=== PATIENT | male | born 1965 | race Caucasian/White ===

== ENCOUNTER 2017-05-24 09:36 | Inpatient (IN) | payer OTHER ==
[2017-05-24] VITALS (8 sets, daily range): BP systolic 72–137; BP diastolic 60–84
[~2017-05-24] VITALS: Ht 172.7 cm; Wt 86.7 kg
--- NOTE | 2017-05-24 14:52 | EKG ---
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
[2017-05-24] MEDS ORDERED: DOCUSATE SODIUM 100 MG CAPSULE. PO PRN (15:15)
[2017-05-24] MEDS ORDERED: hydrALAZINE 20 MG/ML VIAL. IVP PRN (15:15)
[2017-05-24] MEDS ORDERED: ONDANSETRON PF 4 MG/2 ML VIAL. IV PRN (15:15)
[2017-05-24] MEDS ORDERED: DEXTROSE 5% IV PRN (15:15)
[2017-05-24] MEDS ORDERED: IV NORMAL SALINE 1000ML BAG 1,000 ML IV ONE (15:15)
[2017-05-24] MEDS ORDERED: MORPHINE SULFATE 2 MG/ML DISP.SYRIN. IV PRN (15:15)
[2017-05-24] MEDS ORDERED: ACETAMINOPHEN 325 MG TABLET. PO PRN (15:15)
[2017-05-24] MEDS ORDERED: DOPAMINE IV PRN (15:15)
--- NOTE | 2017-05-24 15:18 | PDOC1 ---
History and Physical Date of Admission Date of Admission 05/24/17 Identification/Chief Complaint Chief Complaint chest pain, lightheaded Problems: Source Source: Chart review, Patient History of Present Illness History of Present Illness 52yo M, HTN, was transferred from [facility] FOR bradycardia. Pt said he woke up today with shaky, then N/V, lightheaded. He also felt some substernal chest pain, pressure like, 4/10, no radiation, no diaphoresis or sob. He went to [facility] ,was found HR 30-50s, BP 150s. HE WAS started with dopamine drip, nitro given. NOw He has some headache, HR sinus at 50s, with dopamine at 5m, BP 110s. he said he has similar chest pain 3month ago, saw dr. Vega, did ehco and stress test and was neg. i cannot find any records. He takes benicar with other meds,no details known yet. Past Medical History Cardiovascular: HTN Past Surgical History Past Surgical History: Cholecystectomy Family History Family History: Coronary Artery Disease, Heart Disease Social History Smoke: No ALCOHOL: social Drugs: None Current Medications Current Medications Current Medications Medications (Trade) Dose Ordered Sig/Hayder Start Time Stop Time Status Last Admin Dose Admin Dopamine HCl/ Dextrose 250 ml @ 0 mls/hr CONT PRN 05/24/17 14:45 Allergies Allergies Allergies Coded Allergies Type Severity Reaction Last Updated Verified amoxicillin Allergy Intermediate RASH / HIVES 03/25/16 Yes codeine Allergy Intermediate ITCHY, BROKE OUT WITH RASH 03/25/16 Yes ROS Review of System CONSTITUTIONAL: No fever or chills EYES: No recent changes SKIN: No rash or itching CARDIOVASCULAR: No chest pain, syncope, palpitations, or edema RESPIRATORY: No SOB or cough GASTROINTESTINAL: No nausea, vomiting or abdominal pain NEUROLOGICAL: No headaches or weakness ENDOCRINE: No cold or heat intolerance GENITOURINARY: No urgency or frequency of urination MUSCULOSKELETAL: No back pain or joint pain LYMPHATICS: No enlarged lymph nodes PSYCHIATRIC: No anxiety or depression Physical Exam Physical Exam GEN.: No apparent distress. Alert and oriented. HEENT: Head is normocephalic, atraumatic NECK: Supple. LUNGS: Clear to auscultation.middle chest wall some tenderness HEART: RRR, S1, S2 present. Peripheral pulses intact ABDOMEN: Soft, nontender. Positive bowel sounds. EXTREMITIES: Without any cyanosis. NEUROLOGIC: Normal speech, normal tone PSYCHIATRIC: Normal affect, normal mood. SKIN: No ulcerations Vitals Vitals Vital Signs Date Time Temp Pulse Resp B/P (MAP) Pulse Ox O2 Delivery O2 Flow Rate FiO2 05/24/17 13:14 Room Air 05/24/17 11:45 97.5 67 20 121/74 (90) 96 97.5 VTE Prophylaxis Ordered VTE Prophylaxis Devices: Yes VTE Pharmacological Prophylaxi: Yes Assessment/Plan Assessment/Plan symptomatic sinus bradycardia chest pain, need to rule out unstable angina HTN plan: card consult check tsh, lipid panel cycle CE. echo done 3months ago as per pt, hold till seen by card dopamine drip to keep HR >60, BP >120 hold home HTN meds dvt ppx if not better, may need PPM. ADMIT >2nights DERRICK JOHN MD May 24, 2017 15:18
--- NOTE | 2017-05-24 15:24 | PDOC2 ---
CARDIAC CONSULT DATE OF CONSULT Date of Consult DATE: 05/24/17 TIME: 15:12 REASON FOR CONSULT Reason for Consult: Bradycardia REFERRING PHYSICIAN Referring Physician: Dr. Rose SOURCE Source: Chart review, Patient HISTORY OF PRESENT ILLNESS HISTORY OF PRESENT ILLNESS This is a 52 yo male who initially presented to [facility] ED with complaints of feeling shaky, dizzy, and lightheaded upon awakening this morning. Got in the shower, vomited twice. Also complains of intermittent left-sided chest discomfort. Describes as heaviness. Radiated to left shoulder. Associated with left hand tingling. No associated SOA, palpitations, or diaphoresis. Seems to be worsened by pressing on the left chest. Bradycardic upon arrival to ED HR continued in the upper mid-40's. Patient complained of dizziness when HR dipped to upper 30's. Started on Dopamine at 5 mcg/kg/min and transferred to [facility] for further workup. Labs noted at [facility]. No significant abnormalities. Urine tox screen negative. Patient is presently maintaining SB with a HR near 50 on Dopamine at 5mcg. PAST MEDICAL HISTORY Cardiovascular: HTN Pulmonary: No pertinent hx GI: No pertinent hx Heme/Onc: No pertinent hx Hepatobiliary: No pertinent hx Psych: No pertinent hx Rheumatologic: No pertinent hx Infectious disease: No pertinent hx ENT: No pertinent hx Renal/: Other (kidney stones ) Endocrine: No pertinent hx Dermatology: No pertinent hx PAST SURGICAL HISTORY Past Surgical History: Cholecystectomy, Other (right wrist and elbow sx) FAMILY HISTORY Family History: Cancer (lung- mother ), Coronary Artery Disease SOCIAL HISTORY Smoke: Quit (20 years ago) ALCOHOL: occassional Drugs: None ALLERGIES ALLERGIES: Coded Allergies: amoxicillin (Verified Allergy, Intermediate, RASH / HIVES, 03/25/16) codeine (Verified Allergy, Intermediate, ITCHY, BROKE OUT WITH RASH, ) ROS Review of System 14 point ROS conducted with pertinent positives noted above in HPI. PHYSICAL EXAM General: Alert, Oriented X3, Cooperative, No acute distress HEENT: Atraumatic, Mucous membr. moist/pink Lungs: Clear to auscultation, Normal air movement Heart: Normal S1, Normal S2, No murmurs, Other (tele: SB rate near 50. ) Abdomen: Soft, No tenderness Extremities: No edema, Normal pulses Skin: No breakdown, No significant lesion Neuro: Normal speech, Sensation intact Psych/Mental Status: Mental status NL, Mood NL MUSCULOSKELETAL: Full range of motion without pain VITALS VITALS Vital Signs Date Time Temp Pulse Resp B/P (MAP) Pulse Ox O2 Delivery O2 Flow Rate FiO2 05/24/17 15:00 97.9 48 18 110/74 (86) 99 Room Air 97.9 ECHOCARDIOGRAM ECHOCARDIOGRAM <Conclusion> The left ventricle is normal size. Left ventricle systolic function is normal. The Ejection Fraction is 55-60%. There is no significant aortic valvular stenosis. Doppler and Color Flow revealed no significant aortic regurgitation. Doppler and Color Flow revealed mild mitral regurgitation. Doppler and Color Flow revealed trace to mild tricuspid regurgitation. The PA pressure was estimated at 23 mmHg. DATE: 02/18/17 1133 STRESS TEST STRESS TEST Conclusion 1. No evidence of stress induced EKG changes 2. Normal myocardial perfusion at stress. 3. Normal EF at > 70% 4. Low risk study DATE: 02/18/17 1507 ASSESSMENT/PLAN ASSESSMENT/PLAN 1. Symptomatic bradycardia; HR presently near 50 on Dopamine 2. Chest pain, atypical; initial trop negative at [facility]. EKG without acute changes. Recent MPI without evidence of ischemia and normal echo as noted above 3. Hypertension; controlled 4. Dyslipidemia; LDL =99 (02/22) 5. Probable MARIALUISA; unable to afford deductible for outpatient sleep study Recommendations Trend troponin Continue Dopamine gtt at 5mcg/kg/min for bradycardia. If patient becomes unstable, transfer patient to ICU and titrate Dopamine to keep HR >50. Monitor telemetry overnight. Keep NPO p MN Consider for pacemaker implantation for SSS. D/w primary public affairs specialist Problems: MAK DASH APRN May 24, 2017 15:24
[2017-05-24] MEDS: traMADol 50 MG TABLET PO PRN (19:36)
[2017-05-24] MEDS: ENOXAPARIN 40 MG/0.4 ML SYRINGE. SQ SCH (21:16)
[2017-05-25] VITALS (17 sets, daily range): BP systolic 98–125; BP diastolic 62–81
--- NOTE | 2017-05-25 01:13 | ACF ---
Admission Forms Criteria GENERAL ADMISSION CRITERIA (Place 'X' for any and all applicable criteria): Admission is indicated for ANY ONE of the following: [ ]I. Hemodynamic instability as indicated by ANY ONE of the following(1)(2) (3)(4)(5): [ ]a) Vital sign abnormality not readily corrected by appropriate treatment within 12 to 24 hours indicated by ANY ONE of the following: [ ]i) Hypotension [ ]ii) Symptomatic Tachycardia unresponsive to treatment (eg , analgesia, fluids, sedation as indicated) [ ]iii) Orthostatic vital sign changes unresponsive to treatment (eg, fluids) [ ]b) Vital sign abnormality that is severe indicated by ANY ONE of the following: [ ]i) Inadequate perfusion indicated by ANY ONE of the following: [ ]1) Lactic acidosis (greater than 2 mmol/L) [ ]2) New abnormal capillary refill (greater than 3 seconds) [ ]3) Other metabolic acidosis (arterial pH less than 7.35) not otherwise explained [ ]4) Reduced urine output [ ]5) Altered mental status [ ]6) Myocardial Ischemia [ ]v) Mean arterial pressure[A] less than 60 mm Hg [ ]vi) Mean arterial pressure[A] less than 70 mm Hg after 30 minutes of appropriate treatment (eg, fluid resuscitation) [ ]vii) IV inotropic or vasopressor medication required to maintain adequate blood pressure or perfusion [ ]viii) Sustained heart rate greater than 120 beats per minute in adult or child 6 years or older[B]] [ ]II. Hypertension requiring inpatient treatment as indicated by ANY ONE of the following(6)(7)(8): [ ]a) SBP greater than 220 mm Hg or DBP greater than 120 mm Hg despite treatment [ ]b) SBP greater than 140 mm Hg or DBP greater than 100 mm Hg with evidence of acute end organ damage as indicated by ANY ONE of the following: [ ]i) Encephalopathy [ ]ii) Acute renal failure as indicated by new onset of ANY ONE of the following(9)(10)(11)(12)(13): [ ]1) A 3-fold rise in serum creatinine from baseline [ ]2) Serum creatinine greater than 4 mg/dL ( 354 micromoles/L) with acute rise greater than 0.5 mg/dL (44.2 micromoles/L) [ ]3) Reduction of more than 75% in estimated glomerular filtration rate from baseline [ ]4) Estimated glomerular filtration rate less than 35 mL/min/1.73m2 (0.59 mL/sec/1.73m2) in child up to 18 years of age [ ]5) Cessation of urine output indicated by ALL of the following: [ ]A. Adequate volume status [ ]B. Inadequate urine output as indicated by ANY ONE of the following: [ ]a. Urine output less than 0.3 mL/kg/hr for 24 hours [ ]b. Anuria (urine output less than 0.1 mL/kg/hr) for 12 hours [ ]iii) Aortic dissection [ ]iv) Myocardial ischemia [ ]v) Left ventricular heart failure [ ]vi) Retinal hemorrhage [ ]vii) Other significant finding [ ]c) Hypertension in child requiring inpatient treatment as indicated by ALL of the following(14)(15)(16): [ ]i) Outpatient treatment not effective, not available, or not appropriate [ ]ii) SBP or DBP greater than 95th percentile for age [ ]iii) Evidence of acute end organ damage as indicated by ANY ONE of the following: [ ]1) Altered mental status [ ]2) Acute renal failure as indicated by new onset of ANY ONE of the following(9)(10)(11)(12)(13): [ ]A. A 3-fold rise in serum creatinine from baseline [ ]B. Serum creatinine greater than 4 mg/dL (354 micromoles/L) with acute rise greater than 0.5 mg/dL (44.2 micromoles/L) [ ]C. Reduction of more than 75% in estimated glomerular filtration rate from baseline [ ]D. Estimated glomerular filtration rate less than 35 mL/min/1.73m2 (0.59 mL/sec/1.73m2)in child up to 18 years of age [ ]E. Cessation of urine output indicated by ALL of the following: [ ]a. Adequate volume status [ ]b. Inadequate urine output as indicated by ANY ONE of the following: [ ]1) Urine output less than 0.3 mL/kg/hr for 24 hours [ ]2) Anuria (urine output less than 0.1 mL/kg/hr) for 12 hours [ ]3) Severe headache [ ]4) Visual disturbance [ ]5) Retinal hemorrhage [ ]6) Other significant finding [ ]III. Acute cardiac or peripheral ischemia as indicated by ANY ONE of the following: [ ]a) Acute coronary syndrome(17)(18) [ ]b) Acute peripheral ischemia (eg, pulseless, cool, mottled, or cyanotic extremity)(19) [ ]IV. Cardiac arrhythmias or findings of immediate concern indicated by ANY ONE of the following(20)(21): [ ]a) Heart rhythms that are inherently dangerous or unstable indicated by ANY ONE of the following(22)(23)(24): [ ]i) Resuscitated ventricular fibrillation or cardiac arrest [ ]ii) Ventricular escape rhythm [ ]iii) Sustained ventricular tachycardia (30 seconds or more of ventricular rhythm at greater than 100 beats per minute) [ ]iv) Nonsustained ventricular tachycardia and ANY ONE of the following: [ ]1) Suspected cardiac ischemia as cause or consequence of ventricular tachycardia [ ]2) In setting of acute myocarditis [ ]b) Unstable cardiac conduction defects indicated by ANY ONE of the following(24)(25)(26): [ ]i) Type II second-degree atrioventricular block [ ]ii) Third-degree atrioventricular block [ ]iii) New-onset left bundle branch block with suspected myocardial ischemia [ ]c) Any heart rhythm and ANY ONE of the following(22)(23)(27)(28)( 29): [ ] i) Continuous long-term ECG monitoring needed (eg, initiation of drug requiring monitoring for more than 24 hours) [ ] ii) Patient has automatic implanted cardioverter defibrillator that is repeatedly firing, malfunctioning, or in need of immediate adjustment of settings beyond the scope of ambulatory or observation care. [ ]d) Heart rhythms of concern due to ANY ONE of the following: [ ]i) Hypotension [ ]ii) Respiratory distress [ ]iii) Association with other significant symptoms (eg, bradycardia with syncope or ongoing dizziness, supraventricular tachycardia with chest pain) (27)(28) (30) [ ] V. Severe heart failure as indicated by ANY ONE of the following ( 31)(32): [ ]a) Respiratory distress [ ]b) Hypotension [ ]c) Anasarca (refractory to outpatient therapy) [ ]d) Cardiac arrhythmias of immediate concern [ ]e) Myocardial ischemia [ ]. Respiratory abnormalities, including ANY ONE of the following(33)(34) (35)(36): [ ]a) Respiratory rate greater than 30 breaths per minute unresponsive to treatment [A] [ ]b) New saturation of arterial oxygen less than 90% [ ]c) New partial pressure of carbon dioxide greater than 44 mm Hg ( 5.9 kPa) [ ]d) Supplemental oxygen or respiratory treatments needed that are new or not performable at other levels of care [ ]e) New-onset cyanosis [ ]f) Inability to protect airway [ ]g) Chronic lung disease with severe deterioration (not responsive to emergency and observation care treatment as appropriate) as indicated by ANY ONE of the following(34)(36 ): [ ]i) SaO2 5% below baseline in patient with chronic hypoxemia [ ]ii) New requirement for supplemental oxygen to keep SaO2 at baseline or acceptable level [ ]iii) Required supplemental oxygen performable only in acute inpatient setting [ ]iv) Severe airflow or ventilation abnormalities [ ]v) Previously mobile patient unable to walk between rooms [ ]vi Inability to eat or sleep due to dyspnea [ ]vii) Rapid rate of exacerbation onset [ ]viii) Altered mental status ]VII. Severe airflow or ventilation abnormalities (not responsive to emergency and observation care treatment as appropriate) as indicated by ANY ONE of the following(33)(34)(35)(37): [ ]a) PCO2 greater than 42 mm Hg (5.6 kPa) and pH less than 7.35 (new ) [ ]b) Documented PCO2 increased more than 5 mm Hg (0.7 kPa) from disease baseline [ ]c) Airflow measurements [B] less than 60% of previous best or predicted (eg, peak expiratory flow rate less than 300 L/minute) despite intensive emergent treatment [C] [ ]d) Required respiratory treatments that are performable only in acute inpatient setting [ ]VIII. Impending or actual respiratory arrest ( Also use Respiratory Failure GRG for severe respiratory disease and long-term mechanical ventilation patients) [ ]IX. Neurologic abnormalities, including ANY ONE of the following: [ ]a) New findings that suggest ANY ONE of the following: [ ]i) SPRING ENCASER infection(38) [ ]ii) Cerebral bleeding, ischemia, or vasospasm(39)(40) [ ]iii) Increased intracranial pressure, hydrocephalus, or cerebral edema(41)(42)(43) [ ]iv) Spinal cord injury(44) [ ]b) Uncontrolled seizures(45) [ ]c) New-onset coma (eg, Gee coma scale score less than 9) or unexplained abnormal mental status (eg, Gee coma scale score less than 14) [D](41)(46)(47) [ ]X. New-onset severe neurologic findings requiring inpatient care; examples include(42)(48)(49): [ ]a) Papilledema [ ]b) Cerebral edema [ ]c) Mass effect on CT scan [ ]XI. Suspected acute intra-abdominal process with peritoneal signs, abdominal mass, or similar findings (50)(51)(52) [ ]XII. Severe physiologic disorder remaining after emergency or observation level care (as appropriate) as indicated by ANY ONE of the following (53): [ ]a) Significant dehydration [ ]b) Diabetic ketoacidosis [ ]c) Hyperglycemic hyperosmolar state (eg, osmolality greater than 320 mOsm/kg (mmol/kg) [ ]d) Hypoglycemia [ ]e) Other (new) acid-base disorder with pH less than 7.35 or greater than 7.5(54) [ ]f) Thyroid storm (55) [ ]g) Myxedema coma (55) [ ]XIII. Abdominal abnormalities with ANY ONE of the following(56)(57): [ ]a) Absent bowel sounds with complete ileus [ ]b) Signs of intestinal obstruction or peritonitis [E] [ ]c) Nausea and vomiting that cannot be controlled with outpatient or observation care [ ]XIV. Acute renal failure as indicated by new onset of ANY ONE of the following(9)(10)(11)(12)(13): [ ]a) A 3-fold rise in serum creatinine from baseline [ ]b) Serum creatinine greater than 4 mg/dL (354 micromoles/L) with acute rise greater than 0.5 mg/dL (44.2 micromoles/L) [ ]c) Reduction of more than 75% in estimated glomerular filtration rate from baseline [ ]d) Estimated glomerular filtration rate less than 35 mL/min/ 1.73m2 (0.59 mL/sec/1.73m2) in child up to 18 years of age [ ]e) Cessation of urine output indicated by ALL of the following: [ ]i) Adequate volume status [ ]ii) Inadequate urine output as indicated by ANY ONE of the following: [ ]1) Urine output less than 0.3 mL/kg/hr for 24 hours [ ]2) Anuria (urine output less than 0.1 mL/kg/hr) for 12 hours [ ]XV. Significant uremic complications as indicated by ANY ONE of the following(58)(59)(60): [ ]a) Outpatient therapy is ineffective or not feasible for ANY ONE of the following: [ ]i) Severe heart failure [ ]ii) Severehypertension [ ]iii) Pleural effusion [ ]iv) Pericarditis or pericardial effusion [ ]b) Cardiac arrhythmias of immediate concern [ ]c) Intractable nausea or vomiting [ ]d) Recurrent seizures [ ]e) Encephalopathy [ ]f) Bleeding abnormalities (eg, platelet dysfunction) with active (eg, gastrointestinal) bleeding [ ]g) Dialysis indicated before long-term access or ambulatory arrangements can be made [ ]h) Significant metabolic or electrolyte abnormalities (eg, severe acidosis or hyperkalemia) [ ]XVI. High fever or other high-risk infection situation as indicated by ANY ONE of the following(61)(62)(63)(64): [ ]a) Outpatient and observation care antimicrobial treatment unavailable, not effective, or not appropriate [ ]b) Documented bacteremia [ ]c) Temperature greater than 40.5 degrees C (104.9 degrees F) ( oral) [ ]d) Temperature greater than 39.5 degrees C (103.1 degrees F) ( oral) or less than 36 degrees C (96.8 degrees F) (rectal) that does not respond to e treatment and observation care [ ] XVII. Temperature less than 95 degrees F (35 degrees C)(rectal)(65) [ ] XVIII. Severe nutritional abnormalities as indicated by ALL of the following (66)(67): [ ]a) Inability to tolerate or establish sufficient oral or other enteral nutrition in outpatient setting [ ]b) Parenteral nutrition regimen need that must be implemented on inpatient basis [ ] XIX. Severe electrolyte abnormalities indicated by ALL of the following(68) (69)(70): [ ]a) Electrolytes and associated findings are not as expected for patient baseline or acceptable treatment effects. [ ]b) Severe abnormalities indicated by ANY ONE of the following: [ ]i) Sodium less than 130 mEq/L (mmol/L) (new) [ ]ii)Sodium less than 135 mEq/L (mmol/L) with ANY ONE of the following: [ ]1) Uncorrectable (to near normal or chronic baseline) after trial of outpatient and emergency treatment [ ]2) Altered mental status [ ]3) Seizures [ ]4) Severe medical etiology requiring inpatient management (eg, heart failure, hypovolemia) [ ]iii) Sodium greater than 155 mEq/L (mmol/L) [ ]iv) Sodium greater than 150 mEq/L (mmol/L) with ANY ONE of the following: [ ]1) Uncorrectable (to near normal or chronic baseline) with outpatient and emergency treatment [ ]2) Altered mental status [ ]3) Seizures [ ]4) Severe medical etiology (eg, hypovolemia, diabetes insipidus) [ ]v) Potassium less than 2.5 mEq/L (mmol/L) despite outpatient and emergency treatment [ ]vi) Potassium less than 3 mEq/L (mmol/L) with ANY ONE of the following: [ ]1) Weakness [ ]2) Cardiac abnormality (eg, arrhythmia, conduction disturbance) [ ]3) Cardiac ischemia [ ]4) Ileus [ ]5) Ongoing medical cause requiring inpatient management (eg, acute renal wasting or SIADH) [ ]6) Other severe symptoms [ ]vii) Potassium greater than 6.5 mEq/L (mmol/L) [ ]viii) Potassium greater than 5 mEq/L (mmol/L) with ANY ONE of the following: [ ]1) Uncorrectable (to near normal or chronic baseline) with outpatient and emergency treatment [ ]2) Severe ECG findings [F] [ ]3) Acute worsening of renal failure (creatinine greater than 2.5 mg/dL (221 micromoles/L) or significant elevation for age and size) [ ]4) Severe weakness [ ]5) Severe medical etiology (eg, hemolysis, infection, drug overdose) [ ]ix) Calcium less than 7 mg/dL (1.75 mmol/L) despite outpatient and emergency treatment (72) [ ]x) Calcium less than 8 mg/dL (2 mmol/L) with significant symptoms or findings; examples include(72): [ ]1) Altered mental status [ ]2) Muscle spasms [ ]3) Seizures [ ]4) Breathing difficulty [ ]5) Cardiac abnormality (eg, arrhythmia or conduction disturbance) [ ]xi) Calcium greater than 14 mg/dL (3.5 mmol/L)(72) [ ]xii) Calcium greater than 12 mg/dL (3 mmol/L) with ANY ONE of the following(72): [ ]1) Uncorrectable (to near normal or chronic baseline) with outpatient and emergency treatment [ ]2) Significant dehydration or hypovolemia as indicated by ALL of the following(70)(73)(74): [ ]A. Not resolved with initial treatments [ ]B. Clinically significant dehydration as indicated by ANY ONE of the following: [ ]a. Vomiting refractory to outpatient treatment (ie, precluding oral rehydration) [ ]b. Inability to drink [ ]c. Hypernatremia or other electrolyte abnormality unable to be corrected with outpatient and emergency treatment [ ]d. Failure to remain hydrated with outpatient therapy [ ]e. Reduced urine output [ ]f. Hypotension [ ]g. Serious cause for dehydration requiring acute hospitalization (eg, bowel obstruction, increased intracranial pressure, infectious cause) [ ]h. Child with ANY ONE of the following(75): [ ]1) Severe abdominal tenderness [ ]2) Adequate care not available at home [ ]3) Severe dehydration ( greater than 9% loss of body weight) [ ]4) Significant symptoms or findings; examples include: [ ]A. Altered mental status [ ]B. Cardiac abnormality (eg, arrhythmia, conduction disturbance) [ ]C. Malignant etiology requiring inpatient treatment [ ]xiii) Phosphorus less than 1 mg/dL (0.32 mmol/L) [ ]xiv) Phosphorus less than 1.5 mg/dL (0.48 mmol/L) with ANY ONE of the following: [ ]1) Patient unresponsive to outpatient and emergency treatment [ ]2) Significant symptoms or findings; examples include: [ ]A. Weakness [ ]B. Altered mental status [ ]C. Breathing difficulty [ ]D. Seizures [ ]E. Rhabdomyolysis [ ]xv) Phosphorus greater than 10 mg/dL (3.2 mmol/L) [ ]xvi) Phosphorus greater than 4.5 mg/dL (1.45 mmol/L) (new) with ANY ONE of the following: [ ]1) Severe medical etiology (eg, crush injury, acute renal failure) [ ]2) Associated hypocalcemia with significant findings; examples include: [ ]A. Neurologic symptoms [ ]B. Altered mental status [ ]C. Muscle spasms [ ]D. Seizures [ ]E. Breathing difficulty [ ]F. Cardiac abnormality (eg, arrhythmia, conduction disturbance) [ ]xvii) Magnesium less than 1 mg/dL (0.41 mmol/L) [ ]xviii) Magnesium less than 1.5 mg/dL (0.62 mmol/L) with ANY ONE of the following: [ ]1) Patient unresponsive to outpatient and emergency treatment [ ]2) Associated hypocalcemia with significant findings; examples include: [ ]A. Altered mental status [ ]B. Muscle spasms [ ]C. Seizures [ ]D. Breathing difficulty [ ]E. Cardiac abnormality (eg, arrhythmia , conduction disturbance) [ ]3) Associated hypokalemia (potassium less than 3 mEq/L (mmol/L)) with risk of arrhythmia [ ]xix) Magnesium greater than 4 mEq/L (2 mmol/L) [ ]xx) Magnesium greater than 2.5 mEq/L (1.25 mmol/L) with significant symptoms or findings; examples include: [ ]1) Weakness [ ]2) Altered mental status [ ]3) Cardiac abnormality (eg, arrhythmia, conduction disturbance) [ ]4) Breathing difficulty [ ]5) Severe medical etiology (eg, renal failure, hypovolemia) [ ]xxi) Uric acid greater than 20 mg/dL (1190 micromoles/L)(76) [ ]xxii) Uric acid greater than 8 mg/dL (476 micromoles/L) with significant symptoms or findings of tumor lysis syndrome; examples include(76): [ ]1) Creatinine greater than 1.5 times upper limit of normal [ ]2) Cardiac abnormality (eg, arrhythmia, conduction disturbance) [ ]3) Seizure [ ]XX. Acute blood loss causing significant abnormality as indicated by ANY ONE of the following(77)(78): [ ]a) Hemoglobin less than 10 g/dL (100 g/L) (not baseline) [ ]b) Hematocrit less than 30% (0.30) (not baseline) [ ]c) Repeat hematocrit decreased more than 2% (0.02) [ ]d) Uncontrolled bleeding [ ]XXI. Severe anemia indicated by ANY ONE of the following(78)(79): [ ]a) Altered mental status [ ]b) Chest pain [ ]c) Exertional dyspnea [ ]d) Syncope [ ]e) Other findings suggesting inadequate perfusion [ ]f) Treatment with transfusion or volume replacement is ineffective at resolving ANY ONE of the following [G]: [ ]i) Tachycardia for age [ ]ii) Orthostatic vital sign changes as indicated by ANY ONE of the following(80): [ ]1) Fall in SBP of 20 mm Hg or more 1 to 3 minutes after patient sits or stands from recumbent position [ ]2) Fall in DBP of 10 mm Hg or more 1 to 3 minutes after patient sits or stands from recumbent position [ ]XXII. High-risk low platelet count as indicated by ANY ONE of the following( 81)(82): [ ]a) Severe or life-threatening bleeding (eg, intracranial, major gastrointestinal, or extensive mucosal bleeding), with any reduced platelet count [ ]b) Platelet count less than 20,000/mm3 (20 x109/L) with any active bleeding [ ]c) Platelet count less than 10,000/mm3 (10 x109/L) with minor purpura or petechiae [ ]d) Platelet count less than 5000/mm3 (5 x109/L) [ ]e) Low platelet count with hemolytic anemia [ ]XXIII. Disseminated intravascular coagulation(77)(83) [ ]XXIV. Severe adverse drug or systemic toxin reaction requiring inpatient treatment; examples include(84)(85): [ ]a) Serotonin syndrome(86) [ ]b) Neuroleptic malignant syndrome(86) [ ]c) Cholinergic syndrome with severe symptoms (eg, bronchorrhea, weakness, mental status changes, seizures) [ ]d) Sympathetic syndrome with severe symptoms (eg, seizures, mental status changes, cardiac dysrhythmias) [ ]e) Anticholinergic syndrome [ ]XXV. Severe pain requiring acute inpatient management as indicated by ALL of the following (87)(88)(89): [ ]a) Continuous or frequent (eg, every 2 to 4 hours) parenteral analgesics required [H] [ ]b) Rapid improvement expected from treatment or acute intervention (eg, surgery, anesthesia procedure) [ ]XXVI.Severe behavioral health issues judged unmanageable at a lower level of care (eg, residential) in a patient who is ANY ONE of the following(91) [ ]a) Acutely suicidal [ ]b) A danger to self (eg, self-mutilating or suicidal behavior) [ ]c) A danger to others (eg, assaultive or homicidal behavior) [ ]d) Incapacitated because of grave disability (eg, inability to provide for self at lower level of care) (92) [X]XXVII. Inpatient monitoring needed; examples include(1)(3)(87)(93)(94)(95)(96 ): [ ]a) Vital signs, neurologic signs, or vascular checks more frequently than every 4 hours [X]b) Cardiac or respiratory monitoring beyond the scope (eg, over 24 hours) of observation care [ ]c) Pulmonary artery catheter monitoring [ ]d) Suspected compartment syndrome(97) (98) [ ]e) Cerebral bleeding, hydrocephalus, or vasospasm monitoring [ ]f) Increased intracranial pressure or cerebral edema monitoring [ ]g) monitoring [ ]XXVIII. Treatment requiring inpatient care; examples include: [ ]a) IV fluid to replace significant ongoing losses (greater than 3 L/m2 per day)(53) [ ]b) High concentration oxygen (greater than 40%)(33)(99)(100) [ ]c) Frequent respiratory therapy (more frequently than every 4 hours) to maintain airflow rates greater than 60% of baseline(33)(99)(100) [ ]d) Epidural analgesia(87) [ ]e) IV anticoagulation, vasoactive, or antiarrhythmic medication(19 )(23) [ ]f) Acute thrombolytics (generally require 24 hours of observation )(101)(102) [ ]XXIX. Emergency procedures needed; examples include: [ ]a) Emergency inpatient surgery [ ]b) Temporary pacemaker placement(103) [ ]c) Chest tube placement with active evacuation (eg, suction, drainage)(104) [ ]d) Emergent cardioversion(105) [ ]e) Emergent cardiac or vascular procedures (eg, cardiac catheterization, angioplasty) (17)(18) [ ]f) Emergent dialysis access placement and institution(10)(106) [ ]g) Emergent pericardiocentesis(107) [ ]h) Emergent plasmapheresis or leukapheresis(83) [ ]i) Emergent tracheostomy The original [employer] content created by [employer] has been revised. The portions of the content which have been revised are identified through the use of italic text or in bold, and [email or web address] has neither reviewed nor approved the modified material. All other unmodified content is copyright [employer]. Please see references footnoted in the original [employer] edition 2016 Admission Criteria Met?: Yes FERNANDEZ CARR May 25, 2017 01:13
[2017-05-25 06:10] LABS: BASO % 1 % (0-3); EOS % 2 % (0-3); HEMATOCRIT 44.2 % (39.0-53.0); HEMOGLOBIN 15.8 g/dL (13.0-17.5); LYMPH # 2.3 x10^3/uL (1.0-4.8); LYMPH % 37 % (24-48); MEAN CORPUSCULAR HEMOGLOBIN 32 pg (25-35); MEAN CORPUSCULAR HGB CONC 36 g/dL (31-37); MEAN CORPUSCULAR VOLUME 90 fL (79-100); MONO % 7 % (0-9); NEUT % 54 % (31-73); PLATELET COUNT 202 x10^3/uL (140-400); RED BLOOD COUNT 4.89 x10^6/uL (4.30-5.70); RED CELL DISTRIBUTION WIDTH 13.2 % (11.5-14.5); WHITE BLOOD COUNT 6.3 x10^3/uL (4.0-11.0)
[2017-05-25 06:22] LABS: CALCIUM 8.5 mg/dL (8.5-10.1); CREATININE 0.9 mg/dL (0.7-1.3); GFR 88.6; POTASSIUM 3.9 mmol/L (3.5-5.1)
[2017-05-25 06:25] LABS: CHOLESTEROL/HDL RATIO 3.6
[2017-05-25] MEDS ORDERED: BACITRACIN 50,000 UNIT in IV NORMAL SALINE 250ML 250 ML IRR ONE (10:15)
[2017-05-25] MEDS ORDERED: LIDOCAINE 2%/EPI 1:100,000 20 ML VIAL. ONE (10:50)
[2017-05-25] MEDS ORDERED: OLME1TAB25 PO (10:55)
[2017-05-25] MEDS ORDERED: MIDAZOLAM HCL/PF 5 MG/5 ML VIAL. ONE (11:01)
[2017-05-25] MEDS ORDERED: fentaNYL PF VIAL 250 MCG/5 ML VIAL ONE (11:01)
[2017-05-25] MEDS ORDERED: LIDOCAINE 2%/EPI 1:100,000 20 ML VIAL. IJ ONE (11:30)
[2017-05-25] MEDS ORDERED: fentaNYL PF VIAL 250 MCG/5 ML VIAL IV ONE (11:30)
[2017-05-25] MEDS ORDERED: MIDAZOLAM HCL/PF 5 MG/5 ML VIAL. IV ONE (11:30)
--- NOTE | 2017-05-25 12:34 | CARD ---
APPROVED REPORT PROCEDURES Successful implantation of Biotronik dual-chamber permanent pacemaker INDICATIONS Sick sinus syndrome with severe symptomatic bradycardia PROCEDURE After explaining the risks, benefits, and alternative options, informed consent was obtained from the patient. The patient was brought to the cardiac catheterization lab and the left chest and shoulder were prepp ed and draped in a sterile manner. 30 mL of 2% lidocaine was infiltrated into the skin and subcutaneous tissues for local anesthesia. A n incision was made over the left infraclavicular fossa and using blunt dissection and cautery a pock et was created. Venous access was obtained in the left subclavian vein and 10.5 [address] 7 [place] sheaths were inserted. Subsequently, a Biotronik bipolar active fixation right ventricular lead model Solia serial numbe [id number] was advanced under fluoroscopic guidance and the tip was positioned in the right ventricular ap ex. Following this, a Biotronik bipolar active fixation right atrial lead model Solia serial number [id number] was placed in the right atrial appendage under fluoroscopy guidance. The leads were secure d into place and were attached to a Biotronik dual-chamber permanent pacemaker generator model Eluna 8 DR-T serial number [id number]. This was placed in the pocket that was subsequently closed in 3 layer s. Hemostasis was secured. At the end of procedure, the right ventricular lead showed sensing amplitude of 9.8 mV, impedance of 916 ohms and a threshold of 0.6 volts. The right atrial lead showed a sensing amplitude of 3.9 darrick volts, impedance of 546 ohms and a threshold of 1.2 volts. Patient tolerated the procedure well. The re were no immediate complications. CONCLUSION Successful implantation of Biotronik dual-chamber permanent pacemaker for symptomatic sick sinus synd adriana
--- NOTE | 2017-05-25 12:37 | PDOC ---
MODERATE SEDATION ASSESSMENT RISKS/ALTERNATIVES Risks/Alternatives Risks and alternatives of this type of sedation and procedure discussed with: RISK/ALTERNATIVES: Patient H & P ON CHART H & P H & P on chart and reviewed for co-morbid conditions and appropriate labs. H&P ON CHART: Yes STATUS PREG STATUS ASSESSED: N/A MEDS/ALLERGIES REVIEWED Meds/Allergies Reviewed Medications and Allergies including time and route of recently administered narcotics and sedatives. MEDS/ALLERGIES REVIEWED: Yes ASA RATING ASA RATING: II AIRWAY ASSESSMENT Airway Assessment Airway patency, oral function limitations, presence of caps, crowns, dentures, partials, and ability to extend neck assessed. AIRWAY ASSESSMENT: Yes MALLAMPATI SCORE MALLAMPATI SCORE: II PRE-SEDATION ASSESSMENT PRE-SEDATION ASSESSMENT: Yes JESSICA DASILVA MD May 25, 2017 12:37
[2017-05-25] MEDS ORDERED: NO ANTICOAGULANT THERAPY. MC PRN (12:45)
--- NOTE | 2017-05-25 13:09 | RAD ---
INDICATION: Post pacemaker COMPARISON: 08/06/2011 FINDINGS: Single view of chest obtained. 2-lead pacemaker is identified. Hypoexpanded lungs without focal airspace consolidation or pneumothorax. Mildly prominent air-filled loops of bowel in the upper abdomen. IMPRESSION: Post pacemaker placement without definite pneumothorax.
[2017-05-25] MEDS: traMADol 50 MG TABLET PO PRN (13:51)
--- NOTE | 2017-05-25 13:53 | PDOC ---
PROGRESS NOTES Chief Complaint Chief Complaint symptomatic sinus bradycardia chest pain, need to rule out unstable angina HTN plan: card consulted. PPM 05/25 check tsh t4, lipid panel cycle CE neg echo done 3months ago as per pt, hold till seen by card dc dopamine drip hold home HTN meds dvt ppx History of Present Illness History of Present Illness still bradycardia with low side BP WITH dopamine drip at 5 overnight ppm today Vitals Vitals Vital Signs Date Time Temp Pulse Resp B/P (MAP) Pulse Ox O2 Delivery O2 Flow Rate FiO2 05/25/17 11:48 18 93 Nasal Cannula 2.0 05/25/17 11:45 68 05/25/17 06:47 97.4 116/78 (91) 97.4 Physical Exam General: Alert, Oriented X3, Cooperative, No acute distress Heart: Regular rate, Normal S1, Normal S2, No murmurs, Other (tele: SB rate near 50. ) Lungs: Clear Abdomen: Soft, No tenderness Extremities: No edema, Normal pulses Skin: No breakdown, No significant lesion Labs LABS Laboratory Tests Test 05/24/17 15:35 05/24/17 22:00 05/25/17 05:00 05/25/17 05:15 Troponin I Quantitative < 0.017 ng/mL (0.000-0.055) < 0.017 ng/mL (0.000-0.055) White Blood Count 6.3 x10^3/uL (4.0-11.0) Red Blood Count 4.89 x10^6/uL (4.30-5.70) Hemoglobin 15.8 g/dL (13.0-17.5) Hematocrit 44.2 % (39.0-53.0) Mean Corpuscular Volume 90 fL (79-100) Mean Corpuscular Hemoglobin 32 pg (25-35) Mean Corpuscular Hemoglobin Concent 36 g/dL (31-37) Red Cell Distribution Width 13.2 % (11.5-14.5) Platelet Count 202 x10^3/uL (140-400) Neutrophils (%) (Auto) 54 % (31-73) Lymphocytes (%) (Auto) 37 % (24-48) Monocytes (%) (Auto) 7 % (0-9) Eosinophils (%) (Auto) 2 % (0-3) Basophils (%) (Auto) 1 % (0-3) Neutrophils # (Auto) 3.4 x10^3uL (1.8-7.7) Lymphocytes # (Auto) 2.3 x10^3/uL (1.0-4.8) Monocytes # (Auto) 0.4 x10^3/uL (0.0-1.1) Eosinophils # (Auto) 0.1 x10^3/uL (0.0-0.7) Basophils # (Auto) 0.0 x10^3/uL (0.0-0.2) Sodium Level 142 mmol/L (136-145) Potassium Level 3.9 mmol/L (3.5-5.1) Chloride Level 107 mmol/L (98-107) Carbon Dioxide Level 28 mmol/L (21-32) Anion Gap 7 (6-14) Blood Urea Nitrogen 16 mg/dL (8-26) Creatinine 0.9 mg/dL (0.7-1.3) Estimated GFR (Cockcroft-Gault) 88.6 Glucose Level 102 mg/dL (70-99) Calcium Level 8.5 mg/dL (8.5-10.1) Triglycerides Level 125 mg/dL (0-150) Cholesterol Level 200 mg/dL (0-200) LDL Cholesterol, Calculated 120 mg/dL (0-100) VLDL Cholesterol, Calculated 25 mg/dL (0-40) Non-HDL Cholesterol Calculated 145 mg/dL (0-129) HDL Cholesterol 55 mg/dL (40-60) Cholesterol/HDL Ratio 3.6 Thyroid Stimulating Hormone (TSH) 0.304 uIU/mL (0.358-3.74) Free Thyroxine 0.96 ng/dL (0.76-1.46) Review of Systems Review of Systems no fever, chills, sob or chest pain Comment Review of Relevant I have reviewed the following items gil (where applicable) has been applied. Labs Laboratory Tests Test 05/24/17 15:35 05/24/17 22:00 05/25/17 05:00 05/25/17 05:15 Troponin I Quantitative < 0.017 ng/mL (0.000-0.055) < 0.017 ng/mL (0.000-0.055) White Blood Count 6.3 x10^3/uL (4.0-11.0) Red Blood Count 4.89 x10^6/uL (4.30-5.70) Hemoglobin 15.8 g/dL (13.0-17.5) Hematocrit 44.2 % (39.0-53.0) Mean Corpuscular Volume 90 fL (79-100) Mean Corpuscular Hemoglobin 32 pg (25-35) Mean Corpuscular Hemoglobin Concent 36 g/dL (31-37) Red Cell Distribution Width 13.2 % (11.5-14.5) Platelet Count 202 x10^3/uL (140-400) Neutrophils (%) (Auto) 54 % (31-73) Lymphocytes (%) (Auto) 37 % (24-48) Monocytes (%) (Auto) 7 % (0-9) Eosinophils (%) (Auto) 2 % (0-3) Basophils (%) (Auto) 1 % (0-3) Neutrophils # (Auto) 3.4 x10^3uL (1.8-7.7) Lymphocytes # (Auto) 2.3 x10^3/uL (1.0-4.8) Monocytes # (Auto) 0.4 x10^3/uL (0.0-1.1) Eosinophils # (Auto) 0.1 x10^3/uL (0.0-0.7) Basophils # (Auto) 0.0 x10^3/uL (0.0-0.2) Sodium Level 142 mmol/L (136-145) Potassium Level 3.9 mmol/L (3.5-5.1) Chloride Level 107 mmol/L (98-107) Carbon Dioxide Level 28 mmol/L (21-32) Anion Gap 7 (6-14) Blood Urea Nitrogen 16 mg/dL (8-26) Creatinine 0.9 mg/dL (0.7-1.3) Estimated GFR (Cockcroft-Gault) 88.6 Glucose Level 102 mg/dL (70-99) Calcium Level 8.5 mg/dL (8.5-10.1) Triglycerides Level 125 mg/dL (0-150) Cholesterol Level 200 mg/dL (0-200) LDL Cholesterol, Calculated 120 mg/dL (0-100) VLDL Cholesterol, Calculated 25 mg/dL (0-40) Non-HDL Cholesterol Calculated 145 mg/dL (0-129) HDL Cholesterol 55 mg/dL (40-60) Cholesterol/HDL Ratio 3.6 Thyroid Stimulating Hormone (TSH) 0.304 uIU/mL (0.358-3.74) Free Thyroxine 0.96 ng/dL (0.76-1.46) Laboratory Tests Test 05/24/17 15:35 05/24/17 22:00 05/25/17 05:00 05/25/17 05:15 Troponin I Quantitative < 0.017 ng/mL (0.000-0.055) < 0.017 ng/mL (0.000-0.055) White Blood Count 6.3 x10^3/uL (4.0-11.0) Red Blood Count 4.89 x10^6/uL (4.30-5.70) Hemoglobin 15.8 g/dL (13.0-17.5) Hematocrit 44.2 % (39.0-53.0) Mean Corpuscular Volume 90 fL (79-100) Mean Corpuscular Hemoglobin 32 pg (25-35) Mean Corpuscular Hemoglobin Concent 36 g/dL (31-37) Red Cell Distribution Width 13.2 % (11.5-14.5) Platelet Count 202 x10^3/uL (140-400) Neutrophils (%) (Auto) 54 % (31-73) Lymphocytes (%) (Auto) 37 % (24-48) Monocytes (%) (Auto) 7 % (0-9) Eosinophils (%) (Auto) 2 % (0-3) Basophils (%) (Auto) 1 % (0-3) Neutrophils # (Auto) 3.4 x10^3uL (1.8-7.7) Lymphocytes # (Auto) 2.3 x10^3/uL (1.0-4.8) Monocytes # (Auto) 0.4 x10^3/uL (0.0-1.1) Eosinophils # (Auto) 0.1 x10^3/uL (0.0-0.7) Basophils # (Auto) 0.0 x10^3/uL (0.0-0.2) Sodium Level 142 mmol/L (136-145) Potassium Level 3.9 mmol/L (3.5-5.1) Chloride Level 107 mmol/L (98-107) Carbon Dioxide Level 28 mmol/L (21-32) Anion Gap 7 (6-14) Blood Urea Nitrogen 16 mg/dL (8-26) Creatinine 0.9 mg/dL (0.7-1.3) Estimated GFR (Cockcroft-Gault) 88.6 Glucose Level 102 mg/dL (70-99) Calcium Level 8.5 mg/dL (8.5-10.1) Triglycerides Level 125 mg/dL (0-150) Cholesterol Level 200 mg/dL (0-200) LDL Cholesterol, Calculated 120 mg/dL (0-100) VLDL Cholesterol, Calculated 25 mg/dL (0-40) Non-HDL Cholesterol Calculated 145 mg/dL (0-129) HDL Cholesterol 55 mg/dL (40-60) Cholesterol/HDL Ratio 3.6 Thyroid Stimulating Hormone (TSH) 0.304 uIU/mL (0.358-3.74) Free Thyroxine 0.96 ng/dL (0.76-1.46) Medications Current Medications Dopamine HCl/ Dextrose 250 ml @ 0 mls/hr CONT PRN IV SEE I/O RECORD Last administered on 05/24/17 21:15; Start 05/24/17 at 14:45; Stop 05/25/17 at 11:56 ; Status DC Dopamine HCl 1600 mg/Dextrose 250 ml @ 0 mls/hr CONT PRN IV SEE I/O RECORD; Start 05/24/17 at 15:15; Status UNV Enoxaparin Sodium (Lovenox 40mg Syringe) 40 mg QHS SQ Last administered on 05/24 21:16; Start 05/24/17 at 21:00 Acetaminophen (Tylenol) 650 mg PRN Q6HRS PRN PO FEVER; Start 05/24/17 at 15:15 Ondansetron HCl (Zofran) 4 mg PRN Q6HRS PRN IV NAUSEA/VOMITING; Start 05/24/17 at 15:15 Tramadol HCl (Ultram) 50 mg PRN Q6HRS PRN PO PAIN Last administered on 19:36; Start 05/24/17 at 15:15 Hydralazine HCl (Apresoline) 10 mg PRN Q4HRS PRN IVP ELEVATED BP, SEE COMMENTS ; Start 05/24/17 at 15:15 Docusate Sodium (Colace) 100 mg PRN DAILY PRN PO CONSTIPATION; Start 05/24/17 at 15:15 Morphine Sulfate 2 mg PRN Q2HR PRN IV PAIN; Start 05/24/17 at 15:15 Sodium Chloride 1,000 ml @ 100 mls/hr 1X ONCE IV ; Start 05/24/17 at 15:15; Stop 05/25/17 at 01:14; Status DC Cefazolin Sodium 1 gm/Sodium Chloride 50 ml @ 100 mls/hr 1X PREOP PRN IV SEE COMMENTS Last administered on 05/25/17 11:18; Start 05/26/17 at 06:00; Stop at 15:00 Bacitracin 15927 unit/Sodium Chloride 250 ml @ 250 mls/hr 1X ONCE IRR Last administered on 05/25/17 11:41; Start 05/25/17 at 10:15; Stop 05/25/17 at 11:14 ; Status DC Lidocaine/ Epinephrine (Xylocaine 2%-Epi 1:100,000) 20 ml STK-MED ONCE .ROUTE ; Start 05/25/17 at 10:50; Stop 05/25/17 at 10:51; Status DC Midazolam HCl (Versed) 5 mg STK-MED ONCE .ROUTE ; Start 05/25/17 at 11:01; Stop 05/25/17 at 11:02; Status DC Fentanyl Citrate (Fentanyl 5ml Vial) 250 mcg STK-MED ONCE .ROUTE ; Start at 11:01; Stop 05/25/17 at 11:02; Status DC Dopamine HCl/ Dextrose 250 ml @ As Directed STK-MED ONCE IV ; Start 05/25/17 at 11:03; Stop 05/25/17 at 11:57; Status DC Lidocaine/ Epinephrine (Xylocaine 2%-Epi 1:100,000) 40 ml 1X ONCE IJ Last administered on 05/25/17 11:39; Start 05/25/17 at 11:30; Stop 05/25/17 at 11:31 ; Status DC Midazolam HCl (Versed) 5 mg 1X ONCE IV Last administered on 05/25/17 11:48; Start 05/25/17 at 11:30; Stop 05/25/17 at 11:31; Status DC Fentanyl Citrate (Fentanyl 5ml Vial) 250 mcg 1X ONCE IV Last administered on 7 /18/17at 11:48; Start 05/25/17 at 11:30; Stop 05/25/17 at 11:31; Status DC Info 1 ea CONT PRN PRN MC PER PROTOCOL; Start 05/25/17 at 12:45 Vancomycin HCl 1 gm/Sodium Chloride 250 ml @ 250 mls/hr 1X ONCE IV ; Start at 17:00; Stop 05/25/17 at 17:59 Active Scripts Active Reported Benicar Hct 40-25 Mg Tablet (Olmesartan/Hydrochlorothiazide) 1 Each Tablet 1 Each PO DAILY Vitals/I & O Vital Sign - Last 24 Hours 05/24/17 05/24/17 05/24/17 05/24/17 15:00 19:10 19:10 19:36 Temp 97.9 97.6 97.9 97.6 Pulse 48 57 Resp 18 18 16 B/P (MAP) 110/74 (86) 137/60 (85) Pulse Ox 99 96 92 O2 Delivery Room Air Room Air Room Air Room Air 05/24/17 05/24/17 05/24/17 05/24/17 20:00 20:36 21:00 22:00 Pulse 62 52 50 Resp 16 B/P (MAP) 121/75 (90) 120/84 (96) 72/ Pulse Ox 93 O2 Delivery Room Air 05/24/17 05/24/17 05/25/17 05/25/17 23:00 23:12 00:00 01:00 Pulse 54 47 46 46 Resp 16 B/P (MAP) 119/77 (91) 119/77 (91) 117/75 (89) 125/81 (96) Pulse Ox 97 O2 Delivery Room Air 05/25/17 05/25/17 05/25/17 05/25/17 02:00 03:00 03:00 03:30 Temp 97.6 97.6 Pulse 46 48 56 44 Resp 16 B/P (MAP) 112/73 (86) 114/76 (89) 114/76 (89) 98/63 (75) Pulse Ox 96 O2 Delivery Room Air 05/25/17 05/25/17 05/25/17 05/25/17 04:00 04:28 06:47 07:22 Temp 97.4 97.4 Pulse 44 45 46 Resp 13 B/P (MAP) 102/67 (79) 100/62 (75) 116/78 (91) Pulse Ox 96 O2 Delivery Room Air Room Air 05/25/17 05/25/17 11:45 11:48 Pulse 68 Resp 12 18 Pulse Ox 93 93 O2 Delivery Nasal Cannula Nasal Cannula O2 Flow Rate 3.0 2.0 Intake and Output 05/24/17 05/24/17 05/25/17 15:00 23:00 07:00 Intake Total 0 ml 0 ml Output Total 500 ml Balance 0 ml -500 ml DERRICK JOHN MD May 25, 2017 13:53
[2017-05-25] MEDS ORDERED: oxyCODONE/APAP 5/325 1 TAB TABLET PO PRN (15:15)
[2017-05-25] MEDS ORDERED: VANCOMYCIN 1 GM in IV NORMAL SALINE 250ML 250 ML IV ONE (17:00)
[2017-05-25] MEDS: KETOROLAC TROMETHAMINE 30 MG/ML INJ. IV PRN (17:42)
[2017-05-25] MEDS: oxyCODONE/APAP 10/325 1 TAB TABLET PO PRN (19:50)
[2017-05-25] MEDS: ENOXAPARIN 40 MG/0.4 ML SYRINGE. SQ SCH (22:00)
[2017-05-26] MEDS: KETOROLAC TROMETHAMINE 30 MG/ML INJ. IV PRN ×2 (01:18→07:12)
[2017-05-26] MEDS: oxyCODONE/APAP 10/325 1 TAB TABLET PO PRN (01:18)
[2017-05-26 03:30] VITALS: BP 114/73
[2017-05-26 07:00] VITALS: BP 127/78
[2017-05-26 08:30] LABS: BASO % 1 % (0-3); EOS % 1 % (0-3); HEMATOCRIT 43.7 % (39.0-53.0); HEMOGLOBIN 14.7 g/dL (13.0-17.5); LYMPH # 1.5 x10^3/uL (1.0-4.8); LYMPH % 27 % (24-48); MEAN CORPUSCULAR HEMOGLOBIN 31 pg (25-35); MEAN CORPUSCULAR HGB CONC 34 g/dL (31-37); MEAN CORPUSCULAR VOLUME 93 fL (79-100); MONO % 8 % (0-9); NEUT % 64 % (31-73); PLATELET COUNT 178 x10^3/uL (140-400); WHITE BLOOD COUNT 5.7 x10^3/uL (4.0-11.0)
[2017-05-26 08:41] LABS: CALCIUM 8.9 mg/dL (8.5-10.1); CREATININE 1.2 mg/dL (0.7-1.3); GFR 63.6; POTASSIUM 4.4 mmol/L (3.5-5.1)
--- NOTE | 2017-05-26 08:51 | RAD ---
Indication post pacemaker placement. A single view of the chest was obtained and is compared to a study one day earlier. The heart and pulmonary vessels are unremarkable. There is some minimal volume loss at the left lung base likely reflecting atelectasis. Bipolar cardiac pacing device is noted. No complication is seen and specifically there is no evidence of pneumothorax. IMPRESSION: Bipolar cardiac pacing device. No pneumothorax seen. Minimal atelectasis in the left lung
[2017-05-26 11:00] VITALS: BP 114/70
--- NOTE | 2017-05-26 13:07 | PDOC ---
CARDIO Progress Notes Date and Time Date of Service 05/26/17 Time of Evaluation 1145 Subjective Subjective: No Chest Pain, No shortness of breath, No Palpitations, No Dizziness, Other (mild left chest incisional ) Vitals Vitals Vital Signs Date Time Temp Pulse Resp B/P (MAP) Pulse Ox O2 Delivery O2 Flow Rate FiO2 05/26/17 11:00 97.8 60 18 114/70 (85) 95 Room Air 97.8 05/26/17 07:10 3.0 Weight Weight [ ] Input and Output Intake and Output Intake and Output 05/26/17 07:00 Intake Total 1200 ml Output Total 925 ml Balance 275 ml Intake Oral 900 ml IV Total 300 ml Output Urine Total 925 ml Laboratory Labs Laboratory Tests Test 05/26/17 07:10 White Blood Count 5.7 x10^3/uL (4.0-11.0) Red Blood Count 4.70 x10^6/uL (4.30-5.70) Hemoglobin 14.7 g/dL (13.0-17.5) Hematocrit 43.7 % (39.0-53.0) Mean Corpuscular Volume 93 fL (79-100) Mean Corpuscular Hemoglobin 31 pg (25-35) Mean Corpuscular Hemoglobin Concent 34 g/dL (31-37) Red Cell Distribution Width 13.0 % (11.5-14.5) Platelet Count 178 x10^3/uL (140-400) Neutrophils (%) (Auto) 64 % (31-73) Lymphocytes (%) (Auto) 27 % (24-48) Monocytes (%) (Auto) 8 % (0-9) Eosinophils (%) (Auto) 1 % (0-3) Basophils (%) (Auto) 1 % (0-3) Neutrophils # (Auto) 3.7 x10^3uL (1.8-7.7) Lymphocytes # (Auto) 1.5 x10^3/uL (1.0-4.8) Monocytes # (Auto) 0.4 x10^3/uL (0.0-1.1) Eosinophils # (Auto) 0.1 x10^3/uL (0.0-0.7) Basophils # (Auto) 0.0 x10^3/uL (0.0-0.2) Sodium Level 139 mmol/L (136-145) Potassium Level 4.4 mmol/L (3.5-5.1) Chloride Level 104 mmol/L (98-107) Carbon Dioxide Level 29 mmol/L (21-32) Anion Gap 6 (6-14) Blood Urea Nitrogen 27 mg/dL (8-26) Creatinine 1.2 mg/dL (0.7-1.3) Estimated GFR (Cockcroft-Gault) 63.6 Glucose Level 95 mg/dL (70-99) Calcium Level 8.9 mg/dL (8.5-10.1) Physical Exam HEENT: Neck Supple W Full Motion Chest: Symmetric, Other (left pectorial PPM insertion site without hematoma. Drsg removed. Incision well-approximated. Steri strips intact, ) LUNGS: Clear to Auscultation Heart: S1S2, RRR, other (paced ) Abdomen: Soft N/T Extremities: No Edema, No Calf Tenderness Neurology: alert, oriented, follow commands Assessment Assessment 1. Sick sinus syndrome; s/p implantation of Biotronik dual-chamber permanent pacemaker. Device check with normal function. CXR WNL 2. Chest pain, atypical; troponin series normal, AMI ruled out. EKG without acute changes. Recent MPI without evidence of ischemia. Recent echo with preserved LV function 3. Hypertension; controlled 4. Dyslipidemia; LDL =99 (02/22) 5. Probable MARIALUISA; unable to afford deductible for outpatient sleep study Recommendations May discharge from a CV standpoint and f/u in our office in 2 weeks for personal fitness manager check as scheduled. MAK DASH APRN May 26, 2017 13:07
--- NOTE | 2017-05-26 13:25 | PDOC3 ---
Discharge Summary [facility] Date of Admission: May 24, 2017 Discharge Date: May 26, 2017 Admitting Diagnosis symptomatic sinus bradycardia, sick sinus syndrome post PPM chest pain, ruled out unstable angina, could be anxiety HTN MARIALUISA Problems: CONSULTS CARD Procedures PPM Brief Hospital Course 52yo M, HTN, was transferred from [facility] FOR bradycardia. Pt said he woke up today with shaky, then N/V, lightheaded. He also felt some substernal chest pain, pressure like, 4/10, no radiation, no diaphoresis or sob. He went to [facility] ,was found HR 30-50s, BP 150s. HE WAS started with dopamine drip, nitro given. NOw He has some headache, HR sinus at 50s, with dopamine at 5m, BP 110s. he said he has similar chest pain 3month ago, saw dr. Vega, did ehco and stress test and was neg. i cannot find any records. He takes benicar with other meds,no details known yet. Pt got dopamine drip overnight, Cont bradycardia sinus, with BP lower side. Pt got PPM, PAced at 60s, BP STILL lower side, pt feels much better, no N/V, more energy. dc home with HTN meds held. dc time 35min. General: Alert, Oriented X3, Cooperative, No acute distress Heart: Regular rate, Normal S1, Normal S2, No murmurs, Other (tele: SB rate near 50. ) Lungs: Clear Abdomen: Soft, No tenderness Extremities: No edema, Normal pulses Skin: No breakdown, No significant lesion Problems: Disposition HOME CONDITION AT DISCHARGE: Improved Diet cardiac No Active Prescriptions or Reported Meds Follow Up card in 2 weeks DERRICK JOHN MD May 26, 2017 13:25
[2017-05-26] MEDS ORDERED: oxyCODONE/APAP 5/325 1 TAB TABLET PO PRN (15:15)
== END 2017-05-26 14:01 | disposition home or self-care (01) | DRG 243 ==
LOC: 2 SOUTH 12:14
PROVIDERS: ADMIT Internal Medicine; ATTEND Internal Medicine
PROC: 0JH606Z Insertion of Pacemaker, Dual Chamber into Chest Subcutaneous Tissue and Fascia, Open Approach (ICD-10-PCS; principal; 2017-05-25)
PROC: 02H63JZ Insertion of Pacemaker Lead into Right Atrium, Percutaneous Approach (ICD-10-PCS; 2017-05-25)
PROC: 02HK3JZ Insertion of Pacemaker Lead into Right Ventricle, Percutaneous Approach (ICD-10-PCS; 2017-05-25)
DX: I49.5 Sick sinus syndrome (principal); I20.0 Unstable angina; E78.5 Hyperlipidemia, unspecified; G47.33 Obstructive sleep apnea (adult) (pediatric); I10 Essential (primary) hypertension; F41.9 Anxiety disorder, unspecified; Z80.1 Family history of malignant neoplasm of trachea, bronchus and lung; Z82.49 Family history of ischemic heart disease and other diseases of the circulatory system; Z87.442 Personal history of urinary calculi; Z90.49 Acquired absence of other specified parts of digestive tract; Z88.5 Allergy status to narcotic agent; Z88.1 Allergy status to other antibiotic agents
CPT/HCPCS: 33208; 36415; 71010; 71020; 80048; 80061; 84439; 84443; 84484; 85027; 93005; 99152; 99153; C1785; C1892; C1898; J0690; J1265; J1650; J1885; J2250; J3010; J3370; J3490; J7050; J7030

== ENCOUNTER 2017-06-17 08:57 | Emergency (ER) | payer OTHER ==
[~2017-06-17] VITALS: Ht 175.3 cm; Wt 90.7 kg
[~2017-06-17 08:57] MED LIST: OLME1TAB25 PO
[2017-06-17 09:37] LABS: BASO % 1 % (0-3); EOS % 2 % (0-3); HEMATOCRIT 42.4 % (39.0-53.0); HEMOGLOBIN 14.9 g/dL (13.0-17.5); LYMPH # 2.1 x10^3/uL (1.0-4.8); LYMPH % 40 % (24-48); MEAN CORPUSCULAR HEMOGLOBIN 32 pg (25-35); MEAN CORPUSCULAR HGB CONC 35 g/dL (31-37); MEAN CORPUSCULAR VOLUME 90 fL (79-100); MONO % 8 % (0-9); NEUT % 49 % (31-73); PLATELET COUNT 218 x10^3/uL (140-400); WHITE BLOOD COUNT 5.2 x10^3/uL (4.0-11.0)
--- NOTE | 2017-06-17 09:37 | RAD ---
AP portable chest radiograph 06/17/2017 Clinical History: Chest pain since earlier today. An AP portable erect digital radiograph of the chest was obtained. Comparison study is dated 05/26/2017. A pacemaker is unchanged position. The cardiac silhouette is normal in size. The thoracic aorta is mildly tortuous. The left lower lobe patchy atelectasis/infiltrate has resolved. No acute pulmonary infiltrate is seen. No pleural effusion or pneumothorax is noted. The osseous structures are unchanged. Impression: No acute abnormality is seen.
[2017-06-17] MEDS ORDERED: ONDANSETRON PF 4 MG/2 ML VIAL. IV ONE (09:45)
[2017-06-17] MEDS ORDERED: ACETAMINOPHEN 500 MG TABLET PO ONE (09:45)
[2017-06-17 09:49] LABS: CALCIUM 8.8 mg/dL (8.5-10.1); CREATININE 1.1 mg/dL (0.7-1.3); GFR 70.3; POTASSIUM 4.2 mmol/L (3.5-5.1)
[2017-06-17 09:53] LABS: ALBUMIN 3.9 g/dL (3.4-5.0); ALBUMIN/GLOBULIN RATIO 1.3 (1.0-1.7); TOTAL BILIRUBIN 0.5 mg/dL (0.2-1.0); TOTAL PROTEIN 6.8 g/dL (6.4-8.2)
--- NOTE | 2017-06-17 10:10 | EKG ---
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
[2017-06-17 12:00] VITALS: BP 115/79
--- NOTE | 2017-06-17 12:04 | PHYS DOC ---
Past Medical History Past Medical History: Arrhythmia, Hypertension Past Surgical History: Pacemaker Alcohol Use: None Drug Use: None Adult General Chief Complaint Chief Complaint: CHEST PAIN HPI HPI Patient is a 52 year old male with recent pacemaker placement 2 weeks ago at this facility presents with multiple medical complaints. Patient reports left anterior chest wall pain, tenderness, tingling to left arm, chronic dizziness lightheadedness or sweats standing. Patient denies chest pain, shortness of breath, nausea vomiting and sweats. Denies abdominal pain, increased leg pain or swelling. No history of DVT or PE. Patient is compliant with blood pressure medications. She was evaluated for post pacemaker follow-up in the cardiology last week. Review of Systems Review of Systems ROS as per HPI. Current Medications Current Medications Current Medications Medications (Trade) Dose Ordered Sig/Hayder Start Time Stop Time Status Last Admin Dose Admin Acetaminophen (Tylenol) 1,000 mg 1X ONCE 06/17/17 09:45 06/17/17 09:46 DC 06/17/17 09:53 1,000 MG Ondansetron HCl (Zofran) 4 mg 1X ONCE 06/17/17 09:45 06/17/17 09:46 DC 06/17/17 09:53 4 MG Allergies Allergies Allergies Coded Allergies Type Severity Reaction Last Updated Verified amoxicillin Allergy Intermediate RASH / HIVES 03/25/16 Yes codeine Allergy Intermediate ITCHY, BROKE OUT WITH RASH 03/25/16 Yes Physical Exam Physical Exam Constitutional: Well developed, well nourished, no acute distress, non-toxic appearance. [] HENT: Normocephalic, atraumatic, bilateral external ears normal, oropharynx moist, no oral exudates, nose normal. [] Eyes: PERRLA, EOMI, conjunctiva normal, no discharge. [] Neck: Normal range of motion, no tenderness, supple, no stridor. [] Cardiovascular:Heart rate regular rhythm, no murmur. Pacemaker insertion site, healing surgical incision, no erythema swelling or drainage. Negative Homans signs. [] Lungs & Thorax: Bilateral breath sounds clear to auscultation [] Abdomen: Bowel sounds normal, soft, no tenderness, no masses, no pulsatile masses. [] Skin: Warm, dry, no erythema, no rash. [] Back: No tenderness, no CVA tenderness. [] Extremities: No tenderness, no cyanosis, no clubbing, ROM intact, no edema. [] Neurologic: Alert and oriented X 3, normal motor function, normal sensory function, no focal deficits noted. [] Psychologic: Affect normal, judgement normal, mood normal. [] Current Patient Data Vital Signs Vital Signs Date Time Temp Pulse Resp B/P (MAP) Pulse Ox O2 Delivery O2 Flow Rate FiO2 06/17/17 12:00 60 20 115/79 (91) 96 Room Air 06/17/17 09:08 97.9 97.9 Lab Values Laboratory Tests Test 06/17/17 09:15 White Blood Count 5.2 x10^3/uL (4.0-11.0) Red Blood Count 4.70 x10^6/uL (4.30-5.70) Hemoglobin 14.9 g/dL (13.0-17.5) Hematocrit 42.4 % (39.0-53.0) Mean Corpuscular Volume 90 fL (79-100) Mean Corpuscular Hemoglobin 32 pg (25-35) Mean Corpuscular Hemoglobin Concent 35 g/dL (31-37) Red Cell Distribution Width 13.0 % (11.5-14.5) Platelet Count 218 x10^3/uL (140-400) Neutrophils (%) (Auto) 49 % (31-73) Lymphocytes (%) (Auto) 40 % (24-48) Monocytes (%) (Auto) 8 % (0-9) Eosinophils (%) (Auto) 2 % (0-3) Basophils (%) (Auto) 1 % (0-3) Neutrophils # (Auto) 2.6 x10^3uL (1.8-7.7) Lymphocytes # (Auto) 2.1 x10^3/uL (1.0-4.8) Monocytes # (Auto) 0.4 x10^3/uL (0.0-1.1) Eosinophils # (Auto) 0.1 x10^3/uL (0.0-0.7) Basophils # (Auto) 0.0 x10^3/uL (0.0-0.2) Sodium Level 142 mmol/L (136-145) Potassium Level 4.2 mmol/L (3.5-5.1) Chloride Level 107 mmol/L (98-107) Carbon Dioxide Level 26 mmol/L (21-32) Anion Gap 9 (6-14) Blood Urea Nitrogen 25 mg/dL (8-26) Creatinine 1.1 mg/dL (0.7-1.3) Estimated GFR (Cockcroft-Gault) 70.3 BUN/Creatinine Ratio 23 (6-20) H Glucose Level 127 mg/dL (70-99) H Calcium Level 8.8 mg/dL (8.5-10.1) Total Bilirubin 0.5 mg/dL (0.2-1.0) Aspartate Amino Transferase (AST) 37 U/L (15-37) Alanine Aminotransferase (ALT) 97 U/L (16-63) H Alkaline Phosphatase 99 U/L (46-116) Troponin I Quantitative < 0.017 ng/mL (0.000-0.055) Total Protein 6.8 g/dL (6.4-8.2) Albumin 3.9 g/dL (3.4-5.0) Albumin/Globulin Ratio 1.3 (1.0-1.7) Laboratory Tests 06/17/17 09:15 Laboratory Tests 06/17/17 09:15 EKG EKG [EKG Normal sinus rhythm, no acute ST-T wave changes, no acute ST-T wave changes.] Radiology/Procedures Radiology/Procedures [Chest x-ray: No acute cardiopulmonary disease per radiology report] Course & Med Decision Making Course & Med Decision Making Pertinent Labs and Imaging studies reviewed. (See chart for details) [Patient with chronic intermittent dizziness chest pain with recent cardiac workup with negative stress test. Patient is Arzola interrogated. Dizzy episodes do not to cardiac arrhythmia. Case reviewed in detail with Dr. Lora. K send home recommend outpatient follow-up PCP and cardiology services continue home medications. Patient agrees to follow-up with PCP in the next 2-3 days. Return precautions reviewed.] Dragon Disclaimer Dragon Disclaimer This electronic medical record was generated, in whole or in part, using a voice recognition dictation system. Departure Departure Impression: Primary Impression: Chest pain Additional Impressions: Dizziness Nausea Disposition: 01 HOME, SELF-CARE Condition: GOOD Referrals: BRAYDEN CARSON JOINT SUPERVISOR (PCP) Patient Instructions: Chest Pain (Nonspecific), [id number], Dizziness, Easy- to-Read, Nausea, Adult, [id number] Additional Instructions: You were evaluated emergency department for dizziness nausea chest and left arm pain. Lab work and imaging studies and a pacemaker interrogation were performed and reviewed with your foundation stage teacher. The cause of your symptoms have not been determined. Please take nausea medication as directed and follow-up with your own PCP for further evaluation. In the meantime, if you develop new or worsening symptoms return to the ED. Scripts No Active Prescriptions or Reported Meds Problem Qualifiers JENNIFER WALKER DO Jun 17, 2017 12:04
== END 2017-06-17 12:15 | disposition home or self-care (01) ==
LOC: ER 08:57
DX: R07.89 Other chest pain (principal); R42 Dizziness and giddiness; R11.0 Nausea; I10 Essential (primary) hypertension; Z95.0 Presence of cardiac pacemaker; Z88.1 Allergy status to other antibiotic agents; Z88.5 Allergy status to narcotic agent
CPT/HCPCS: 36415; 71010; 80053; 84484; 85027; 93005; 96374; 99285; J2405

== ENCOUNTER 2017-08-09 08:17 | Inpatient (IN) | payer OTHER ==
[~2017-08-09] VITALS: Ht 175.3 cm; Wt 90.4 kg
[2017-08-09] MEDS ORDERED: ASPIRIN ENTERIC COATED 325 MG TABLET.DR. PO ONE (08:30)
--- NOTE | 2017-08-09 08:48 | RAD ---
Chest x-ray Indication: Chest pain since last night, pacemaker 3 months ago. Technique: Portable AP upright chest x-ray Comparison: Previous chest x-ray from 06/17/2017 Findings: Left chest wall cardiac device is seen with its lead projecting over the heart. Heart is mildly enlarged in size which may be secondary to patient being mildly rotated to the right. Lungs are clear. No pneumothorax or pleural effusion. Visualized bony thorax within normal limits. Impression: No acute cardiopulmonary process.
--- NOTE | 2017-08-09 08:52 | EKG ---
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
--- NOTE | 2017-08-09 08:58 | PHYS DOC ---
Past Medical History Past Medical History: A-Fib, Arrhythmia, Hypertension, Kidney Stone Past Surgical History: Cholecystectomy, Pacemaker, Other Additional Past Surgical Histo: KIDNEY STONES, ELBOW, WRIST SX Alcohol Use: None Drug Use: None Adult General Chief Complaint Chief Complaint: CHEST PAIN [facility] HPI Patient is a 52 year old male who presents with chest pain. Patient states around 10 PM yesterday he developed a burning substernal chest pain that turned into the left-sided chest pressure radiation to his chalk, shoulder and down his arm with associated left arm numbness. The symptoms persisted for 4 hours and patient was able to fall asleep. When he awoke he had similar pain in her persisted and he came to the ER. Prior to my arrival that his symptoms had significantly improved, however he had a headache. Patient reports he took all of his a.m. medication including his foot denied, Benicar, 2 baby aspirin. He's had recent diagnosis of atrial fibrillation, he had a pacemaker placed in May due to bradycardia. Exertional dyspnea and orthopnea, both which are intermittent. Review of Systems Review of Systems Constitutional: Denies fever or chills [] Eyes: Denies change in visual acuity, redness, or eye pain [] HENT: Denies nasal congestion or sore throat [] Respiratory: Denies cough or shortness of breath [] Cardiovascular: No additional information not addressed in HPI [] GI: Denies abdominal pain, nausea, vomiting, bloody stools or diarrhea [] : Denies dysuria or hematuria [] Musculoskeletal: Denies back pain or joint pain [] Integument: Denies rash or skin lesions [] Neurologic: Denies focal weakness or sensory changes [] Current Medications Current Medications Current Medications Medications (Trade) Dose Ordered Sig/[facility] Start Time Stop Time Status Last Admin Dose Admin Acetaminophen (Tylenol) 1,000 mg 1X ONCE 08/09/17 09:00 08/09/17 09:01 DC 08/09/17 09:09 1,000 MG Aspirin (Children'S Aspirin) 162 mg 1X ONCE 08/09/17 09:15 08/09/17 09:16 DC 08/09/17 09:09 162 MG Aspirin (Ecotrin) 325 mg 1X ONCE 08/09/17 08:30 08/09/17 08:31 DC Multi-Ingredient Mouthwash/Gargle (Gi Cocktail Single Dose) 15 ml 1X ONCE 08/09/17 09:00 08/09/17 09:01 DC 08/09/17 09:10 15 ML Allergies Allergies Allergies Coded Allergies Type Severity Reaction Last Updated Verified amoxicillin Allergy Intermediate RASH / HIVES 03/25/16 Yes codeine Allergy Intermediate ITCHY, BROKE OUT WITH RASH 03/25/16 Yes Physical Exam Physical Exam Constitutional: Well developed, well nourished, no acute distress, non-toxic appearance. [] HENT: Normocephalic, atraumatic, bilateral external ears normal, oropharynx moist, no oral exudates, nose normal. [] Eyes: PERRLA, EOMI, conjunctiva normal, no discharge. [] Neck: Normal range of motion, no tenderness, supple, no stridor. [] Cardiovascular:Heart rate regular with regular rhythm, no murmur [] Lungs & Thorax: Bilateral breath sounds clear to auscultation no wheeze or crackles Abdomen: Bowel sounds normal, soft, no tenderness, no masses, no pulsatile masses. [] Skin: Warm, dry, no erythema, no rash. [] Back: No tenderness, no CVA tenderness. [] Extremities: No tenderness, no cyanosis, no clubbing, ROM intact, no edema. [] Neurologic: Alert and oriented X 3, normal motor function, normal sensory function, no focal deficits noted. [] Psychologic: Affect normal, judgement normal, mood normal. [] Current Patient Data Vital Signs Vital Signs Date Time Temp Pulse Resp B/P (MAP) Pulse Ox O2 Delivery O2 Flow Rate FiO2 08/09/17 09:20 74 18 131/90 (104) 95 Room Air 08/09/17 08:24 98.6 98.6 Lab Values Laboratory Tests Test 08/09/17 09:00 White Blood Count 5.8 x10^3/uL (4.0-11.0) Red Blood Count 4.75 x10^6/uL (4.30-5.70) Hemoglobin 15.1 g/dL (13.0-17.5) Hematocrit 43.0 % (39.0-53.0) Mean Corpuscular Volume 91 fL (79-100) Mean Corpuscular Hemoglobin 32 pg (25-35) Mean Corpuscular Hemoglobin Concent 35 g/dL (31-37) Red Cell Distribution Width 12.7 % (11.5-14.5) Platelet Count 200 x10^3/uL (140-400) Neutrophils (%) (Auto) 51 % (31-73) Lymphocytes (%) (Auto) 39 % (24-48) Monocytes (%) (Auto) 7 % (0-9) Eosinophils (%) (Auto) 2 % (0-3) Basophils (%) (Auto) 1 % (0-3) Neutrophils # (Auto) 3.0 x10^3uL (1.8-7.7) Lymphocytes # (Auto) 2.2 x10^3/uL (1.0-4.8) Monocytes # (Auto) 0.4 x10^3/uL (0.0-1.1) Eosinophils # (Auto) 0.1 x10^3/uL (0.0-0.7) Basophils # (Auto) 0.1 x10^3/uL (0.0-0.2) Prothrombin Time 11.9 SEC (11.7-14.0) Prothrombin Time INR 0.9 (0.8-1.1) Sodium Level 139 mmol/L (136-145) Potassium Level 3.6 mmol/L (3.5-5.1) Chloride Level 105 mmol/L (98-107) Carbon Dioxide Level 29 mmol/L (21-32) Anion Gap 5 (6-14) L Blood Urea Nitrogen 20 mg/dL (8-26) Creatinine 1.1 mg/dL (0.7-1.3) Estimated GFR (Cockcroft-Gault) 70.3 BUN/Creatinine Ratio 18 (6-20) Glucose Level 153 mg/dL (70-99) H Calcium Level 9.0 mg/dL (8.5-10.1) Magnesium Level 2.2 mg/dL (1.8-2.4) Total Bilirubin 0.4 mg/dL (0.2-1.0) Aspartate Amino Transferase (AST) 40 U/L (15-37) H Alanine Aminotransferase (ALT) 90 U/L (16-63) H Alkaline Phosphatase 88 U/L (46-116) Troponin I Quantitative < 0.017 ng/mL (0.000-0.055) TD-Brw-A-Type Natriuretic Peptide 70 pg/mL (0-124) Total Protein 7.3 g/dL (6.4-8.2) Albumin 3.5 g/dL (3.4-5.0) Albumin/Globulin Ratio 0.9 (1.0-1.7) L Laboratory Tests 08/09/17 09:00 Laboratory Tests 08/09/17 09:00 EKG EKG 73 bpm, appears sinus, normal axis, normal intervals, no ST elevation or depression, nonischemic T waves, interpreted by me Modular Set Crew Member shows a sinus rhythm at 70 bpm, interpreted by me, no dysrhythmia appreciated[] Radiology/Procedures Radiology/Procedures Chest x-ray: Impression: No acute cardiopulmonary process. Course & Med Decision Making Course & Med Decision Making Pertinent Labs and Imaging studies reviewed. (See chart for details) Pt given asa. Burning pain started to return and GI cocktail given, along with Tylenol for his headache. No clear improvement, nitro SL ordered. No acute findings on ED workup. Spoke with Dr. Moreno, accepted full admission to [facility], pt has mutliple risk factors. Consult for cardiology placed. Oscar Disclaimer Oscar Disclaimer This electronic medical record was generated, in whole or in part, using a voice recognition dictation system. Departure Departure Impression: Primary Impression: Unstable angina Disposition: ADMITTED INPATIENT Admitting Physician: Fernando Moreno Condition: STABLE Referrals: BRAYDEN CARSON RELAY REPAIRER (PCP) Scripts No Active Prescriptions or Reported Meds JOSAFAT CORONA MD Aug 09, 2017 08:58
[2017-08-09] MEDS ORDERED: LIDO:MAALOX:DONNATAL 1:1:1 15 ML SINGLE DOSE SWSW ONE (09:00)
[2017-08-09] MEDS ORDERED: ACETAMINOPHEN 500 MG TABLET PO ONE (09:00)
[2017-08-09 09:11] LABS: BASO # 0.1 x10^3/uL (0.0-0.2); BASO % 1 % (0-3); EOS % 2 % (0-3); HEMOGLOBIN 15.1 g/dL (13.0-17.5); LYMPH # 2.2 x10^3/uL (1.0-4.8); LYMPH % 39 % (24-48); MEAN CORPUSCULAR HEMOGLOBIN 32 pg (25-35); MEAN CORPUSCULAR HGB CONC 35 g/dL (31-37); MEAN CORPUSCULAR VOLUME 91 fL (79-100); MONO % 7 % (0-9); NEUT % 51 % (31-73); PLATELET COUNT 200 x10^3/uL (140-400); RED BLOOD COUNT 4.75 x10^6/uL (4.30-5.70); RED CELL DISTRIBUTION WIDTH 12.7 % (11.5-14.5); WHITE BLOOD COUNT 5.8 x10^3/uL (4.0-11.0)
[2017-08-09] MEDS ORDERED: ASPIRIN CHEWABLE 81 MG TABLET. PO ONE (09:15)
[2017-08-09 09:21] LABS: CREATININE 1.1 mg/dL (0.7-1.3); GFR 70.3; POTASSIUM 3.6 mmol/L (3.5-5.1)
[2017-08-09 09:27] LABS: ALBUMIN 3.5 g/dL (3.4-5.0); ALBUMIN/GLOBULIN RATIO 0.9 (1.0-1.7); INR 0.9 (0.8-1.1); MAGNESIUM 2.2 mg/dL (1.8-2.4); PROTHROMBIN TIME PATIENT 11.9 SEC (11.7-14.0); TOTAL BILIRUBIN 0.4 mg/dL (0.2-1.0); TOTAL PROTEIN 7.3 g/dL (6.4-8.2)
[2017-08-09 10:30] VITALS: BP 123/80
[2017-08-09 11:00] VITALS: BP 124/88
--- NOTE | 2017-08-09 11:32 | HP ---
ADMIT DATE: 08/09/2017 CHIEF COMPLAINT: Chest pain. HISTORY OF PRESENT ILLNESS: The patient is a pleasant 52-year-old male who sees Dr. Vega for his arrhythmias. He has a pacemaker. Last night he developed chest pain. He has had cardiac stress test in the past, but they were negative. He is concerned he could have underlying coronary artery disease. Apparently, his cousin had a similar issue with negative stress test, but turned out to be real disease. He has now been admitted. We are consulting Cardiology. PAST MEDICAL HISTORY: AFib, arrhythmias, hypertension, hyperlipidemia, kidney stones, cholecystectomy, permanent pacemaker, left elbow surgery, wrist surgery. ALLERGIES: AMOXICILLIN AND CODEINE. FAMILY HISTORY: Coronary artery disease. SOCIAL HISTORY: He does not drink, smoke or take drugs. 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 MEDICATIONS: Reviewed. REVIEW OF SYSTEMS: GENERAL: No history of weight change, weakness or fevers. SKIN: No bruising, hair changes or rashes. EYES: No blurred, double or loss of vision. NOSE AND THROAT: No history of nosebleeds, hoarseness or sore throat. HEART: He complains of chest pain. LUNGS: Denies cough, hemoptysis, wheezing or shortness of breath. GASTROINTESTINAL: Denies changes in appetite, nausea, vomiting, diarrhea or constipation. GENITOURINARY: No history of frequency, urgency, hesitancy or nocturia. NEUROLOGIC: Denies history of numbness, tingling, tremor or weakness. PSYCHIATRIC: No history of panic, anxiety or depression. ENDOCRINE: No history of heat or cold intolerance, polyuria or polydipsia. EXTREMITIES: Denies muscle weakness, joint pain, pain on walking or stiffness. PHYSICAL EXAMINATION: VITAL SIGNS: Temperature afebrile, pulse 74, respirations 20, blood pressure 144/100. GASTROINTESTINAL: He is alert, cooperative. HEART: Normal S1, S2. LUNGS: Clear. ABDOMEN: Soft. EXTREMITIES: No edema. SKIN: Multiple tattoos. ENDOCRINE: No thyromegaly. LYMPHATICS: No cervical nodes. HEMATOPOIETIC: No bruising. LABORATORY DATA: White count 6, hemoglobin 15, platelets 200. Electrolytes are normal. Troponin 0. INR is 0.9. ASSESSMENT AND PLAN: Chest pain, rule out coronary artery disease. The patient has been admitted. We will check serial enzymes, serial EKGs, cardiac monitoring. Consult Cardiology. HALLE SIMPSON DO DR: Patrica JOB#: [id number] / [id number]
--- NOTE | 2017-08-09 13:50 | PDOC2 ---
CARDIAC CONSULT DATE OF CONSULT Date of Consult DATE: 08/09/17 TIME: 13:44 REASON FOR CONSULT Reason for Consult: Chest pain REFERRING PHYSICIAN Referring Physician: Dheeraj SOURCE Source: Chart review, Patient HISTORY OF PRESENT ILLNESS HISTORY OF PRESENT ILLNESS This is a pleasant 52 yo male admitted for complains of chest pain. Reports of sensation of burning mid chest then it felt like vibration going to his left chest. No n/v, or dizziness. He was seen in our office for palpitations recently and was noted with PAFIB with 6% AFIB burden. He was then placed on flecainide. Presently he feels better and no further recurrence. PAST MEDICAL HISTORY Past Medical History Cardiovascular: HTN, SSS, AFIB Pulmonary: No pertinent hx GI: No pertinent hx Heme/Onc: No pertinent hx Hepatobiliary: No pertinent hx Psych: No pertinent hx Rheumatologic: No pertinent hx Infectious disease: No pertinent hx ENT: No pertinent hx Renal/: Other (kidney stones ) Endocrine: No pertinent hx Dermatology: No pertinent hx PAST SURGICAL HISTORY Past Surgical History Cholecystectomy, Other (right wrist and elbow sx) FAMILY HISTORY Family History Cancer (lung- mother ), Coronary Artery Disease SOCIAL HISTORY Social History Smoke: Quit (20 years ago) ALCOHOL: occasional Drugs: None CURRENT MEDICATIONS CURRENT MEDICATIONS Current Medications Medications (Trade) Dose Ordered Sig/Hayder Route PRN Reason Start Time Stop Time Status Last Admin Dose Admin Multi-Ingredient Mouthwash/Gargle (Gi Cocktail Single Dose) 15 ml 1X ONCE SWSW 08/09/17 09:00 08/09/17 09:01 DC 08/09/17 09:10 Acetaminophen (Tylenol) 1,000 mg 1X ONCE PO 08/09/17 09:00 08/09/17 09:01 DC 08/09/17 09:09 Aspirin (Children'S Aspirin) 162 mg 1X ONCE PO 08/09/17 09:15 08/09/17 09:16 DC 08/09/17 09:09 ALLERGIES ALLERGIES: Coded Allergies: amoxicillin (Verified Allergy, Intermediate, RASH / HIVES, 03/25/16) codeine (Verified Allergy, Intermediate, ITCHY, BROKE OUT WITH RASH, ) ROS Review of System 14 point ROS evaluated with pertinent positives noted per HPI PHYSICAL EXAM General: Alert, Oriented X3, Cooperative, No acute distress HEENT: Atraumatic, Mucous membr. moist/pink Lungs: Clear to auscultation, Normal air movement Heart: Regular rate (SR), Normal S1, Normal S2 Abdomen: Soft, No tenderness Extremities: No cyanosis, No edema Skin: No breakdown, No significant lesion Neuro: Normal speech, Sensation intact Psych/Mental Status: Mental status NL, Mood NL MUSCULOSKELETAL: Osteoarthritic changes both hands VITALS VITALS Vital Signs Date Time Temp Pulse Resp B/P (MAP) Pulse Ox O2 Delivery O2 Flow Rate FiO2 08/09/17 11:00 97.6 66 20 124/88 (100) 96 Room Air 97.6 LABS Lab: Laboratory Tests Test 08/09/17 09:00 White Blood Count 5.8 x10^3/uL (4.0-11.0) Red Blood Count 4.75 x10^6/uL (4.30-5.70) Hemoglobin 15.1 g/dL (13.0-17.5) Hematocrit 43.0 % (39.0-53.0) Mean Corpuscular Volume 91 fL (79-100) Mean Corpuscular Hemoglobin 32 pg (25-35) Mean Corpuscular Hemoglobin Concent 35 g/dL (31-37) Red Cell Distribution Width 12.7 % (11.5-14.5) Platelet Count 200 x10^3/uL (140-400) Neutrophils (%) (Auto) 51 % (31-73) Lymphocytes (%) (Auto) 39 % (24-48) Monocytes (%) (Auto) 7 % (0-9) Eosinophils (%) (Auto) 2 % (0-3) Basophils (%) (Auto) 1 % (0-3) Neutrophils # (Auto) 3.0 x10^3uL (1.8-7.7) Lymphocytes # (Auto) 2.2 x10^3/uL (1.0-4.8) Monocytes # (Auto) 0.4 x10^3/uL (0.0-1.1) Eosinophils # (Auto) 0.1 x10^3/uL (0.0-0.7) Basophils # (Auto) 0.1 x10^3/uL (0.0-0.2) Prothrombin Time 11.9 SEC (11.7-14.0) Prothromb Time International Ratio 0.9 (0.8-1.1) Sodium Level 139 mmol/L (136-145) Potassium Level 3.6 mmol/L (3.5-5.1) Chloride Level 105 mmol/L (98-107) Carbon Dioxide Level 29 mmol/L (21-32) Anion Gap 5 (6-14) Blood Urea Nitrogen 20 mg/dL (8-26) Creatinine 1.1 mg/dL (0.7-1.3) Estimated GFR (Cockcroft-Gault) 70.3 BUN/Creatinine Ratio 18 (6-20) Glucose Level 153 mg/dL (70-99) Calcium Level 9.0 mg/dL (8.5-10.1) Magnesium Level 2.2 mg/dL (1.8-2.4) Total Bilirubin 0.4 mg/dL (0.2-1.0) Aspartate Amino Transf (AST/SGOT) 40 U/L (15-37) Alanine Aminotransferase (ALT/SGPT) 90 U/L (16-63) Alkaline Phosphatase 88 U/L (46-116) Troponin I Quantitative < 0.017 ng/mL (0.000-0.055) ZC-Wur-R-Type Natriuretic Peptide 70 pg/mL (0-124) Total Protein 7.3 g/dL (6.4-8.2) Albumin 3.5 g/dL (3.4-5.0) Albumin/Globulin Ratio 0.9 (1.0-1.7) ASSESSMENT/PLAN ASSESSMENT/PLAN 1. Atypical CP: initial troponin normal, EKG SR without acute changes. Likely from palpitations related to AFIB 2. SSS: S/P PPM (biotronik)Sick sinus syndrome; 3. Hypertension; controlled 4. Dyslipidemia 5. PAFIB: 6% AFIB burden per recent interrogation. T Recommendations. 1. TTE and MPI were recent and noted to be no significant changes. Will interrogated device 2. Will start on PPI 3. Continue with flecainide, QTc 442. And will start on metoprolol 4. Observe BP trend and will note if ARB needs to be decreased or stop completely for now. 5. Anticipate DC tomorrow. Problems: MO BRICE APRN Aug 09, 2017 13:50
[2017-08-09] MEDS: ASPIRIN ENTERIC COATED 325 MG TABLET.DR. PO SCH (15:00)
[2017-08-09] MEDS: PANTOPRAZOLE 40 MG TABLET.DR. PO SCH (15:00)
[2017-08-09] MEDS ORDERED: ACETAMINOPHEN 325 MG TABLET. PO PRN (15:30)
[2017-08-09] MEDS: METOPROLOL TART IMMED RELEASE 25 MG TABLET. PO SCH ×2 (15:47→21:01)
[2017-08-09 16:18] VITALS: BP 129/84
[2017-08-09 19:05] VITALS: BP 148/59
[2017-08-09 19:22] VITALS: BP 106/67
[2017-08-09] MEDS ORDERED: OLME1TAB21 PO (19:30)
[2017-08-09] MEDS ORDERED: FLEC100T PO (19:30)
[2017-08-09] MEDS ORDERED: ASPI-630 PO (19:30)
[2017-08-09] MEDS: FLECAINIDE ACETATE 50 MG TABLET. PO SCH (21:00)
[2017-08-09 22:41] VITALS: BP 117/80
[2017-08-10 02:59] VITALS: BP 121/82
[2017-08-10 07:00] VITALS: BP 114/75
[2017-08-10] MEDS ORDERED: FLEC50TA PO (09:30)
[2017-08-10] MEDS ORDERED: METO25TA4 PO (09:30)
[2017-08-10] MEDS ORDERED: ASPI325T8 PO (09:30)
[2017-08-10] MEDS: ASPIRIN ENTERIC COATED 325 MG TABLET.DR. PO SCH (09:33)
[2017-08-10] MEDS: PANTOPRAZOLE 40 MG TABLET.DR. PO SCH (09:33)
[2017-08-10] MEDS: METOPROLOL TART IMMED RELEASE 25 MG TABLET. PO SCH (09:33)
[2017-08-10] MEDS: FLECAINIDE ACETATE 50 MG TABLET. PO SCH (09:33)
[2017-08-10 11:00] VITALS: BP 117/73
--- NOTE | 2017-08-10 11:49 | PDOC3 ---
Discharge Summary Visit Information Date of Admission: Aug 09, 2017 Date of Discharge: Aug 10, 2017 Admitting Diagnosis Comment: 1. PAroxysmal atrial fib Final Diagnosis Problems Medical Problems: (1) Unstable angina Status: Acute Brief Hospital Course Allergies Allergies Coded Allergies Type Severity Reaction Last Updated Verified amoxicillin Allergy Intermediate RASH / HIVES 03/25/16 Yes codeine Allergy Intermediate ITCHY, BROKE OUT WITH RASH 03/25/16 Yes Vital Signs Vital Signs Date Time Temp Pulse Resp B/P (MAP) Pulse Ox O2 Delivery O2 Flow Rate FiO2 08/10/17 09:33 60 114/75 08/10/17 08:15 Room Air 08/10/17 07:00 97.4 21 97 97.4 Lab Results Laboratory Tests Test 08/09/17 09:00 08/09/17 17:40 08/09/17 22:25 White Blood Count 5.8 x10^3/uL (4.0-11.0) Red Blood Count 4.75 x10^6/uL (4.30-5.70) Hemoglobin 15.1 g/dL (13.0-17.5) Hematocrit 43.0 % (39.0-53.0) Mean Corpuscular Volume 91 fL (79-100) Mean Corpuscular Hemoglobin 32 pg (25-35) Mean Corpuscular Hemoglobin Concent 35 g/dL (31-37) Red Cell Distribution Width 12.7 % (11.5-14.5) Platelet Count 200 x10^3/uL (140-400) Neutrophils (%) (Auto) 51 % (31-73) Lymphocytes (%) (Auto) 39 % (24-48) Monocytes (%) (Auto) 7 % (0-9) Eosinophils (%) (Auto) 2 % (0-3) Basophils (%) (Auto) 1 % (0-3) Neutrophils # (Auto) 3.0 x10^3uL (1.8-7.7) Lymphocytes # (Auto) 2.2 x10^3/uL (1.0-4.8) Monocytes # (Auto) 0.4 x10^3/uL (0.0-1.1) Eosinophils # (Auto) 0.1 x10^3/uL (0.0-0.7) Basophils # (Auto) 0.1 x10^3/uL (0.0-0.2) Prothrombin Time 11.9 SEC (11.7-14.0) Prothromb Time International Ratio 0.9 (0.8-1.1) Sodium Level 139 mmol/L (136-145) Potassium Level 3.6 mmol/L (3.5-5.1) Chloride Level 105 mmol/L (98-107) Carbon Dioxide Level 29 mmol/L (21-32) Anion Gap 5 (6-14) Blood Urea Nitrogen 20 mg/dL (8-26) Creatinine 1.1 mg/dL (0.7-1.3) Estimated GFR (Cockcroft-Gault) 70.3 BUN/Creatinine Ratio 18 (6-20) Glucose Level 153 mg/dL (70-99) Calcium Level 9.0 mg/dL (8.5-10.1) Magnesium Level 2.2 mg/dL (1.8-2.4) Total Bilirubin 0.4 mg/dL (0.2-1.0) Aspartate Amino Transf (AST/SGOT) 40 U/L (15-37) Alanine Aminotransferase (ALT/SGPT) 90 U/L (16-63) Alkaline Phosphatase 88 U/L (46-116) Troponin I Quantitative < 0.017 ng/mL (0.000-0.055) < 0.017 ng/mL (0.000-0.055) < 0.017 ng/mL (0.000-0.055) JI-Okb-T-Type Natriuretic Peptide 70 pg/mL (0-124) Total Protein 7.3 g/dL (6.4-8.2) Albumin 3.5 g/dL (3.4-5.0) Albumin/Globulin Ratio 0.9 (1.0-1.7) Laboratory Tests Test 08/09/17 17:40 08/09/17 22:25 Troponin I Quantitative < 0.017 ng/mL (0.000-0.055) < 0.017 ng/mL (0.000-0.055) Brief Hospital Course Mr. Hilton is a 52 old male pt of Dr. Vega admitted oBS overnight for atrial fob RVR, On fleicanide at home, cards continued that and changed his benicar to Metoprolol. Cleared for dc later with ff up already scheduled with crdrs on Aug 25. No CP, o SOA< no trop elevation,. No Distress Pt seen and examined Rx written Dc 30 mins Discharge Information Condition at Discharge: Improved, Stable Disposition/Orders: D/C to Home Scheduled Aspirin (Aspirin), 2 TAB PO DAILY, (Reported) Flecainide Acetate (Flecainide Acetate), 1 TAB PO BID, (Reported) Olmesartan/Hydrochlorothiazide (Benicar Hct 20-12.5 Mg Tablet), 1 TAB PO DAILY, (Reported) WHIT DE LEON MD Aug 10, 2017 11:49
== END 2017-08-10 14:17 | disposition home or self-care (01) | DRG 309 ==
LOC: ER 08:17 → 2 NORTH 09:35
PROVIDERS: ADMIT Internal Medicine; ATTEND Internal Medicine
DX: I48.0 Paroxysmal atrial fibrillation (principal); I20.0 Unstable angina; I49.5 Sick sinus syndrome; I10 Essential (primary) hypertension; E78.5 Hyperlipidemia, unspecified; Z80.1 Family history of malignant neoplasm of trachea, bronchus and lung; Z82.49 Family history of ischemic heart disease and other diseases of the circulatory system; Z87.442 Personal history of urinary calculi; Z95.0 Presence of cardiac pacemaker; Z90.49 Acquired absence of other specified parts of digestive tract; Z88.4 Allergy status to anesthetic agent; Z88.5 Allergy status to narcotic agent
CPT/HCPCS: 36415; 71010; 80053; 83735; 83880; 84484; 85025; 85610; 93005; 99285-25

== ENCOUNTER 2017-10-25 13:26 | Emergency (ER) | payer OTHER ==
[~2017-10-25] VITALS: Ht 175.3 cm; Wt 90.7 kg
[~2017-10-25 13:26] MED LIST changes: +ASPI-630 PO; +ASPI325T8 PO; +FLEC100T PO; +FLEC50TA PO; +METO25TA4 PO; +OLME1TAB21 PO
[2017-10-25 14:37] VITALS: BP 112/82
--- NOTE | 2017-10-25 14:39 | RAD ---
Chest x-ray Indication: Cough for 3 weeks. Technique: PA and lateral views of the chest Comparison: Previous study from 08/2017 Findings: Dual-lead cardiac pacemaker is noted. Heart is normal in size. Lungs are clear. No pneumothorax or pleural effusion. Visualized bony thorax is within normal limits. Impression: No acute cardiopulmonary process.
--- NOTE | 2017-10-25 15:59 | EKG ---
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
--- NOTE | 2017-10-25 16:48 | PHYS DOC ---
Past Medical History Past Medical History: A-Fib, Arrhythmia, Hypertension, Kidney Stone Past Surgical History: Cholecystectomy, Pacemaker, Other Additional Past Surgical Histo: KIDNEY STONES, ELBOW, WRIST SX Alcohol Use: None Drug Use: None Adult General Chief Complaint Chief Complaint: COUGH HPI HPI Patient is a 52 year old male with history of A. fib, pacemaker placement, who presents with nonproductive cough with chest tightness. Patient treated for pneumonia with Z-Andrea 2 weeks ago. Patient states he completed antibiotic but still has occasional chest tightness. Denies dyspnea and exertional,. Chest pain is brief last for seconds and associated with cough and is nonradiating. No history of CAD. No history of PE or DVT. No other symptoms or complaints. [] Review of Systems Review of Systems Review symptoms as per history of present illness. All other review symptoms are negative. All other systems were reviewed and found to be within normal limits, except as documented in this note. Allergies Allergies Allergies Coded Allergies Type Severity Reaction Last Updated Verified amoxicillin Allergy Intermediate RASH / HIVES 03/25/16 Yes codeine Allergy Intermediate ITCHY, BROKE OUT WITH RASH 03/25/16 Yes Physical Exam Physical Exam Constitutional: Well developed, well nourished, no acute distress, non-toxic appearance. [] HENT: Normocephalic, atraumatic, bilateral external ears normal, oropharynx moist, no oral exudates, nose normal. [] Eyes: PERRLA, EOMI, conjunctiva normal, no discharge. [] Neck: Normal range of motion, no tenderness, supple, no stridor. [] Cardiovascular:Heart rate regular rhythm, no murmur. Negative Homans sign. [] Lungs & Thorax: Bilateral breath sounds clear to auscultation, coarse rales in left lung miller [] Abdomen: Bowel sounds normal, soft, no tenderness, no masses, no pulsatile masses. [] Skin: Warm, dry, no erythema, no rash. [] Back: No tenderness [] Extremities: No tenderness, no cyanosis, no clubbing, ROM intact, no edema. [] Neurologic: Alert and oriented X 3, normal motor function, normal sensory function, no focal deficits noted. [] Psychologic: Affect normal, judgement normal, mood normal. [] Current Patient Data Vital Signs Vital Signs Date Time Temp Pulse Resp B/P (MAP) Pulse Ox O2 Delivery O2 Flow Rate FiO2 10/25/17 14:37 61 19 112/82 (92) 95 Room Air 10/25/17 13:51 97.9 97.9 EKG EKG [EKG: Atrial fibrillation, rate 67, no acute ST-T wave changes, QTC 443. Interpreted by this physician.] Radiology/Procedures Radiology/Procedures [CXR: No acute cardiopulmonary disease interpreted by radiology.] Course & Med Decision Making Course & Med Decision Making Pertinent Labs and Imaging studies reviewed. (See chart for details) [Suspect pneumonia based upon clinical exam. Patient's is not hypoxic and is not showing signs of respiratory distress. Will treat supportively with PCP follow-up. Return precautions reviewed.] Dragon Disclaimer Dragon Disclaimer This electronic medical record was generated, in whole or in part, using a voice recognition dictation system. Departure Departure Impression: Primary Impression: Acute bronchitis Disposition: 01 HOME, SELF-CARE Condition: GOOD Patient Instructions: Bronchitis, [id number] Additional Instructions: Please take medications as directed and ollow up with your PCP in 1 week for re- evaluation/ JENNIFER WALKER DO Oct 25, 2017 16:48
== END 2017-10-25 15:17 | disposition home or self-care (01) ==
LOC: ER 13:26
DX: J20.9 Acute bronchitis, unspecified (principal); I48.91 Unspecified atrial fibrillation; I10 Essential (primary) hypertension; Z87.442 Personal history of urinary calculi; Z95.0 Presence of cardiac pacemaker; Z90.49 Acquired absence of other specified parts of digestive tract; Z88.1 Allergy status to other antibiotic agents; Z88.5 Allergy status to narcotic agent
CPT/HCPCS: 71020; 93005; 99284

== ENCOUNTER 2018-02-14 14:31 | Emergency (ER) | payer BC ==
[2018-02-14] MEDS: NITROGLYCERIN SUBLINGUAL 0.4 MG BOTTLE OF 25. SL (14:54)
[2018-02-14 15:10] LABS: BILIRUBIN,URINE NEGATIVE (NEG); CLARITY,URINE CLOUDY; COLOR,URINE YELLOW; GLUCOSE,URINE NEGATIVE (NEG); NITRITE,URINE NEGATIVE (NEG); PH,URINE 5.5; PROTEIN,URINE NEGATIVE (NEG-TRACE)
[2018-02-14 15:16] LABS: BARBITURATES NEG (NEG); BENZODIAZEPINES NEG (NEG); CANNABINOIDS NEG (NEG); COCAINE NEG (NEG); METHADONE NEG (NEG); OPIATES NEG (NEG); PHENCYCLIDINE NEG (NEG)
[2018-02-14 15:18] LABS: AMPHETAMINE/METHAMPHETAMINE NEG (NEG); ETHANOL, URINE NEG (NEG)
[2018-02-14 15:37] LABS: ADD MAN DIFF? NO
[2018-02-14 15:41] LABS: BASO # 0.1 x10^3/uL (0.0-0.2); BASO % 1 % (0-3); EOS # 0.1 x10^3/uL (0.0-0.7); EOS % 1 % (0-3); HEMATOCRIT 49.2 % (39.0-53.0); HEMOGLOBIN 16.8 g/dL (13.0-17.5); LYMPH # 2.8 x10^3/uL (1.0-4.8); LYMPH % 41 % (24-48); MEAN CORPUSCULAR HEMOGLOBIN 31 pg (25-35); MEAN CORPUSCULAR HGB CONC 34 g/dL (31-37); MEAN CORPUSCULAR VOLUME 92 fL (79-100); MONO # 0.6 x10^3/uL (0.0-1.1); MONO % 9 % (0-9); NEUT # 3.2 x10^3uL (1.8-7.7); NEUT % 48 % (31-73); PLATELET COUNT 236 x10^3/uL (140-400); RED BLOOD COUNT 5.36 x10^6/uL (4.30-5.70); RED CELL DISTRIBUTION WIDTH 12.9 % (11.5-14.5); WHITE BLOOD COUNT 6.8 x10^3/uL (4.0-11.0)
[2018-02-14] MEDS: diphenhydrAMINE 50 MG/ML VIAL IVP (15:45)
[2018-02-14] MEDS: KETOROLAC 15 MG/ML VIAL. IV (15:45)
[2018-02-14] MEDS: DEXAMETHASONE SOD PHOS 4 MG/ML VIAL IV (15:45)
[2018-02-14 15:49] LABS: INR 0.9 (0.8-1.1)
[2018-02-14 15:58] LABS: ANION GAP 7 (6-14); BLOOD UREA NITROGEN 28 mg/dL (8-26); CALCIUM 9.1 mg/dL (8.5-10.1); CARBON DIOXIDE 27 mmol/L (21-32); CHLORIDE 105 mmol/L (98-107); GFR 78.5; GLUCOSE 104 mg/dL (70-99); POTASSIUM 3.9 mmol/L (3.5-5.1); SODIUM 139 mmol/L (136-145)
[2018-02-14 15:59] LABS: TROPONINI < 0.017 ng/mL (0.000-0.055)
[2018-02-14] MEDS ORDERED: CONTRAST GIVEN MC (16:00)
[2018-02-14 16:01] LABS: ALBUMIN 3.3 g/dL (3.4-5.0); ALK PHOS 100 U/L (46-116); ALT (SGPT) 101 U/L (16-63); AST (SGOT) 37 U/L (15-37); DIRECT BILIRUBIN 0.1 mg/dL (0.0-0.2); LIPASE 153 U/L (73-393); MAGNESIUM 2.1 mg/dL (1.8-2.4); TOTAL BILIRUBIN 0.6 mg/dL (0.2-1.0)
[2018-02-14 16:05] LABS: THYROID STIM HORMONE (TSH) 2.627 uIU/mL (0.358-3.74)
[2018-02-14] MEDS: IOHEXOL 300 MG/ML 100ML VIAL. IV (16:06)
[2018-02-14 16:08] LABS: CKMB MASS 0.6 ng/mL (0.0-3.6); CREATINE KINASE 36 U/L (39-308)
[2018-02-14 16:08] LABS: NT-PRO BNP 41 pg/mL (0-124)
[2018-02-14 16:22] LABS: BACTERIA,URINE FEW /HPF (0-FEW); HYALINE CASTS, URINE FEW /HPF; RBC,URINE OCC /HPF (0-2); SQUAMOUS EPITHELIAL CELL,UR FEW /LPF; WBC,URINE OCC /HPF (0-4)
== END 2018-02-14 18:24 | disposition home or self-care (01) ==
LOC: ER 14:31
DX: M47.9 Spondylosis, unspecified (principal); I48.91 Unspecified atrial fibrillation; I10 Essential (primary) hypertension; G89.29 Other chronic pain; Z90.49 Acquired absence of other specified parts of digestive tract; Z95.0 Presence of cardiac pacemaker; Z88.1 Allergy status to other antibiotic agents; Z88.5 Allergy status to narcotic agent
CPT/HCPCS: 36415; 70496; 70498; 71045; 72125; 80048; 80076; 80307; 81001; 82553; 83690; 83735; 83880; 84443; 84484; 85025; 85610; 93005; 96374; 96375; 99285-25; J1100; J1200; J1885; Q9967

== ENCOUNTER → 2018-05-23 | Outpatient (CLI) | payer BC | END | disposition home or self-care (01) | LOC: MRI 08:06 | DX: M48.02 Spinal stenosis, cervical region (principal); M25.78 Osteophyte, vertebrae; I10 Essential (primary) hypertension; E78.5 Hyperlipidemia, unspecified; E66.9 Obesity, unspecified; K21.9 Gastro-esophageal reflux disease without esophagitis; Z87.891 Personal history of nicotine dependence | CPT/HCPCS: 72141 ==

== ENCOUNTER → 2018-06-27 | Outpatient (CLI) | payer BC ==
[~2018-06-27] MED LIST changes: +IOHEXOL 300 MG/ML 50 ML VIAL. IJ ONE; +LIDOCAINE WITH 8.4% SOD BICARB 3 ML DISP.SYRIN. INJ ONE
[2018-06-27 14:45] VITALS: BP 156/96
--- NOTE | 2018-06-29 10:02 | RAD ---
Cervical myelogram, 06/27/2018: History: Radiculopathy, left arm and leg pain, headache Under local anesthesia, aseptic conditions and fluoroscopic guidance a lumbar puncture was performed at the L2-3 level utilizing a 25-gauge Leobardo spinal needle. Good clear CSF flow was obtained following which 11 cc of Omnipaque 300 was injected into the thecal sac. The spinal needle was then removed and appropriate cervical imaging performed. 2.3 minutes of fluoroscopy time was utilized. 14 fluoroscopic spot images were recorded. The patient tolerated the procedure well and was sent to CT in good condition. The following findings are delineated on the myelogram: 1. Preliminary AP and lateral views of the lumbar spine demonstrate mild grade 1 spondylolisthesis at L5-S1 with probable underlying spondylolysis at L5. There are moderate scattered spurs throughout the lumbar spine. 2. There are moderate anterior extradural defects the disc levels from C3-4 through C6-7. There is a mild broad-based posterior extradural defect from the mid C4 level down to the C5-6 level. The combination of findings is causing mild to moderate central spinal stenosis at C4-5, C5-6 and C6-7. 3. There is poor opacification of the nerve root sleeves at multiple levels in the lower cervical spine including C4-5 and C5-6 on the right and C5-6 and C6-[address] of the cervical spine-post myelogram, 06/27/2018: Multidetector CT imaging was performed with multiplanar reconstructions produced. The following findings are delineated: 1. No fracture or subluxation is evident. No destructive bony lesion is seen. There are moderate degenerative changes involving multiple facet joints bilaterally, most severe on the left at C3-4. 2. No significant abnormality is identified at the C2-3 disc level. 3. At C3-4 there is mild posterior marginal spurring which results in mild foraminal narrowing on the left. The thecal sac measures 11 mm in AP diameter at the midline. 4. At C4-5 there is moderate disc space narrowing with moderate marginal spurring, most prominent laterally on the right. There is severe associated right foraminal narrowing and moderate left foraminal narrowing due to the spurring. The thecal sac narrows down to an AP diameter of 8 mm at the midline with mild flattening of the cervical cord. 5. There is similar disc space narrowing and prominent spurring at C5-6 the thecal sac measures 8-9 mm in AP diameter at the midline. The spurring is producing severe foraminal encroachment bilaterally. 6. At C6-7 there is also disc space narrowing with considerable posterior marginal spurring. The thecal sac measures approximately 9 mm in AP diameter at the midline. There is moderate to severe bilateral foraminal encroachment. 7. At C7-T1 the central spinal canal and neural foramina are well maintained. IMPRESSION: 1. Moderate multilevel degenerative change with moderate central spinal stenosis at C4-5 and mild central spinal stenosis at C5-6 and C6-7, as well as severe foraminal narrowing bilaterally at multiple levels as described above. 2. Incidental note is made of mild anterolisthesis at L5-S1. PQRS Compliance Statement: One or more of the following individualized dose reduction techniques were utilized for this examination: 1. Automated exposure control 2. Adjustment of the mA and/or kV according to patient size 3. Use of iterative reconstr -- uction technique DICTATED and SIGNED BY: JORGE PICKENS MD DATE: 06/27/18 1533 [facility]
== END | disposition home or self-care (01) ==
LOC: RAD 11:57
PROVIDERS: ATTEND Neurological Surgery
DX: M48.02 Spinal stenosis, cervical region (principal); M43.12 Spondylolisthesis, cervical region; I10 Essential (primary) hypertension; E78.5 Hyperlipidemia, unspecified; I48.0 Paroxysmal atrial fibrillation; K21.9 Gastro-esophageal reflux disease without esophagitis; Z90.49 Acquired absence of other specified parts of digestive tract; Z82.49 Family history of ischemic heart disease and other diseases of the circulatory system; Z80.1 Family history of malignant neoplasm of trachea, bronchus and lung; Z87.891 Personal history of nicotine dependence; Z87.442 Personal history of urinary calculi; Z95.0 Presence of cardiac pacemaker; Z88.1 Allergy status to other antibiotic agents; Z88.4 Allergy status to anesthetic agent; Z88.5 Allergy status to narcotic agent; Z88.8 Allergy status to other drugs, medicaments and biological substances
CPT/HCPCS: 72126; 72240; Q9967

== ENCOUNTER → 2018-08-08 | Outpatient (CLI) | payer BC ==
[2018-06-27 14:45] VITALS: BP 156/96
[~2018-08-08] MED LIST changes: +HYDR-2762 PO; -IOHEXOL 300 MG/ML 50 ML VIAL. IJ ONE; -LIDOCAINE WITH 8.4% SOD BICARB 3 ML DISP.SYRIN. INJ ONE
--- NOTE | 2018-08-09 00:49 | PAIN ---
DATE OF SERVICE: 08/08/2018 INITIAL CONSULTATION FOR PAIN CLINIC CHIEF COMPLAINT: Neck and left upper extremity pain. SECONDARY COMPLAINT: Low back and left lower extremity pain. HISTORY OF PRESENT ILLNESS: This is a 53-year-old male who presents with history of pain for about one-year worse. The patient reports that his pain began when he was 22 years old. He fell off a roof about 2-1/2 storeys, had significant impact to his neck and his back and had pain ever since. This has been flaring up over the past year or so. The patient reports increased pain in the base of the neck, left shoulder, left upper extremity, into the arm and hand with pain in the low back and the left leg as well into the leg and foot. The patient reports pain in the arm and hand is most significant and is causing him headaches as well, becoming more constant. He described it as a sharp, stabbing, throbbing, shooting, tingling, numbness with radiation in the upper extremities, burning, cramping and aching. The patient reports no loss of motor function, but significant fatigability with the left arm and left leg with walking. The patient had MRI scans of both the lumbar and cervical spines, lumbar spine showing degenerative disk disease involving the lumbar spine, not resulting in any significant central spinal canal stenosis, but dnwy-ko-ekdmfaii left greater than right neural foraminal stenosis seen, especially at L5-S1, with generalized disk bulge eccentric to the left. Cervical myelogram with CT followup here shows moderate multilevel degenerative change with moderate central spinal stenosis at C4-C5, mild central spinal stenosis at C5-C6 and C6-C7 as well as severe foraminal narrowing bilaterally at multiple levels. The patient reports significant pain with all activities, standing, walking and changing positions and waking him from his sleep at night frequently, about once an hour. The patient reports it does not affect his bowel or bladder control, but does affect his ability to walk fairly significantly, especially with his left leg and low back. The patient has tried hydrocodone, which helped just a little. He has tried multiple ohyq-zpe-wntfqyb arthritis medications and prescription medications and steroid packs without significant improvement. The patient had physical therapy finished about 2 months ago and is still doing the exercises and stretching and strengthening exercises from the physical therapy and is doing this daily, although it does not seem to be helping the pain dissipate. The patient reports his disability rate from 0-10, 10 being the worst, it is a 6 with family and home responsibilities and social activity, 7 with recreation and life-support activities, 10 with occupational activities, 5 with sexual behavior and 4 with self-care activities. PAST MEDICAL HISTORY: Significant for hypertension, atrial fibrillation, dizziness, arthritis and cigar smoking, quit about 20 years ago. PAST SURGICAL HISTORY: Previous surgeries include pacemaker placement, right elbow surgery and cholecystectomy. CURRENT MEDICATIONS: Include daily baby aspirin, metoprolol, Benicar, flecainide and hydrocodone. FAMILY HISTORY: Significant for heart disease and diabetes. SOCIAL HISTORY: The patient does not drink alcohol, does not smoke any longer and does not use any illegal, illicit or recreational drugs. He is and lives with his spouse and 3 children, living at home and lives locally in [place], [place]. 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 REVIEW OF SYSTEMS: The patient's review of systems is positive for those items mentioned in the history of present illness. All systems reviewed and otherwise negative. It is complete, full and well documented on the patient's chart. PHYSICAL EXAMINATION: VITAL SIGNS: The patient's blood pressure is 158/113, pulse is 88, respirations 18 and temperature 97.9 degrees Fahrenheit. Height is 5 feet 9 inches, weight is 222 pounds. GENERAL: The patient is awake, alert, oriented, appropriate, very pleasant demeanor. HEENT EXAMINATION: Shows normocephalic, atraumatic. Extraocular movements are intact and symmetrical. Oral cavity, mucous membranes are moist and pink. Dentition is intact. NECK: Shows anterior throat supple, without palpable lymphadenopathy noted. Swallow reflex is symmetrical. CHEST: Shows normal on inspection. Breath sounds are clear to auscultation bilaterally. HEART: Shows S1, S2 clear. No murmurs auscultated. ABDOMEN: Soft, nontender and nondistended. No palpable organomegaly is noted. No rebound or guarding demonstrated. BACK: Shows spine grossly in the midline. Normal-appearing thoracic kyphosis and lumbar lordotic curvature as well as cervical lordotic curvature. Cervical paraspinous muscle shows symmetrical on inspection. On palpation, it shows some moderate tenderness throughout the upper, middle and lower distribution, slightly more on the left than the right, especially into the superior medial trapezius, but without radiation and without trigger points. The patient has good rotational motion of cervical spine, somewhat guarded with lateral rotation to the left greater than 45 degrees, but good rotation to the right as well as extension and flexion, without significant pain reported. The patient's low back shows moderate tenderness with palpation, although symmetrical in the lumbar paraspinous musculature. On palpation, he is moderately tender throughout the upper, middle and lower distribution of the paraspinous muscles, without radiation and without trigger points. The patient has good rotation of the lumbar spine both laterally, greater than 10 degrees right than left as well as extension greater than 10 degrees, forward flexion at 45 degrees, without significant pain reported. EXTREMITIES: Show upper extremity deep tendon reflexes 2+ in the biceps and triceps tendons. Motor exam is approximately 4 on a scale of 5 with left manager of product strength and 5/5 on the right. Peripheral pulses are 2+ radial distribution. Lower extremities show deep tendon reflexes 1+ in the patellar and tendo calcaneus tendons are equal. Motor exam is 5/5 with dorsiflexion, extension and symmetrical bilaterally as well. Peripheral pulses are 2+ radial and 1+ posterior tibial. SKIN: The patient's skin shows warm and dry, good turgor. No edema. No sores, rashes or bruising. NEUROLOGIC: The patient is able to stand, has difficulty standing on his toes as he loses his balance fairly quickly when trying to stand on one leg on its own, but walks with a slight shuffling gait. He appears to favor his left lower extremity, but not using any assistive devices to ambulate. IMPRESSION: 1. This is a 53-year-old male with many-year history of neck and left upper extremity pain, headaches and low back and left lower extremity pain in a radicular fashion in the left upper extremity, most severely with lumbar radiculopathy as well in the neck, mainly in the C5-C6 and C6-C7 dermatome and in the low back at the L4-L5 and L5-S1 dermatomes, status post physical therapy, still doing the exercises in strengthening and stretching, routines on his own and trying to walk daily, but with only limited improvement and becoming more difficult with the pain. 2. Hypertension. 3. Arthritis. PLAN: Options were discussed with the patient, including conservative medical management, physical therapy and interventional techniques. He would like to proceed with interventional techniques as he has had both physical therapies and other therapies tried. We discussed the cervical epidural steroid injection using description as well as anatomical models to describe the procedure. The patient will wait for preauthorization with his insurance provider. Once this is authorized, we will plan on cervical epidural steroid injection at that time for this gentleman with clinical cervical radiculopathy on the left at the C5-C6 and C6-C7 dermatomal distributions. ESTHER HANKS MD DR: WILLI/cassie JOB#: [id number] / [id number] MIGUELITO Rasmussen
== END | disposition home or self-care (01) ==
LOC: PNCL 10:57
PROVIDERS: ATTEND Anesthesiology
DX: M54.16 Radiculopathy, lumbar region (principal); M54.12 Radiculopathy, cervical region; M79.602 Pain in left arm; M79.605 Pain in left leg; I10 Essential (primary) hypertension; M19.90 Unspecified osteoarthritis, unspecified site; E78.5 Hyperlipidemia, unspecified; I48.0 Paroxysmal atrial fibrillation; G47.33 Obstructive sleep apnea (adult) (pediatric); Z87.442 Personal history of urinary calculi; Z87.891 Personal history of nicotine dependence; Z90.49 Acquired absence of other specified parts of digestive tract; Z88.4 Allergy status to anesthetic agent; Z88.5 Allergy status to narcotic agent; Z88.1 Allergy status to other antibiotic agents; Z88.8 Allergy status to other drugs, medicaments and biological substances; Z82.49 Family history of ischemic heart disease and other diseases of the circulatory system; Z80.1 Family history of malignant neoplasm of trachea, bronchus and lung
CPT/HCPCS: 99214

== ENCOUNTER → 2018-08-22 | Outpatient (CLI) | payer BC ==
[2018-06-27 14:45] VITALS: BP 156/96
[~2018-08-22] MED LIST changes: +IOHEXOL 180 MG/ML 10 ML VIAL. ONE; +LIDOCAINE 1% PF 2 ML VIAL. ONE; +methylPREDNISolone ACETATE 40 MG/ML VIAL. ONE; +methylPREDNISolone ACETATE 80 MG/ML VIAL. ONE
--- NOTE | 2018-08-22 22:04 | PAIN ---
DATE OF SERVICE: 08/22/2018 PROGRESS NOTE FOR PAIN CLINIC DIAGNOSES: 1. Cervical radiculopathy with cervical degenerative disk disease and cervical spinal stenosis. 2. Lumbar radiculopathy with lumbar degenerative disk disease. HISTORY OF PRESENT ILLNESS: The patient is a 53-year-old male who returns for followup status post initial evaluation and preauthorization for cervical epidural steroid injection. The patient still has significant pain in the base of the neck and left upper extremity. The patient has got approval and would like to proceed. The patient reports pain is still significant, rates as a 7 on a scale of 10 at its worst and on average and a 5 at its least and is a 7 today. The patient reports it is an aching, sharp, shooting, tingling, burning, cramping, stabbing, radiating, becoming more constant, more severe, more unbearable causing headaches in the left arm, left shoulder into the left hand with tingling and numbness in the left arm as well with some loss of function and dropping items with his left arm with fatigue. The patient reports it wakes him from sleep at least once a night. He does reposition and get back to sleep. The patient reports no new motor or sensory deficits, no new bowel or bladder incontinence or other complaints, but still has significant pain in the low back and left lower extremity as well all the way to the toes. Range of motion in the posterior lateral aspect of the thigh, posterior calf. PHYSICAL EXAMINATION: VITAL SIGNS: The patient's blood pressure is 146/80, pulse 70, respirations 18, temperature is 97.9 degrees Fahrenheit. Height is 5 feet 9 inches, weight is 219 pounds. GENERAL: The patient is awake, alert, oriented, appropriate, very pleasant demeanor. HEENT: Head shows normocephalic, atraumatic. Extraocular movements are intact and symmetrical. Oral cavity: Mucous membranes are moist and pink. Dentition is intact. NECK: Shows anterior throat supple without palpable lymphadenopathy noted. Swallow reflex symmetrical. CHEST: Shows normal with inspection. Breath sounds clear to auscultation bilaterally. HEART: Shows S1, S2 clear. No murmurs auscultated. ABDOMEN: Soft, obese, nontender, nondistended. No palpable organomegaly is noted. No rebound or guarding demonstrated. BACK: Shows spine grossly in the midline, normal appearing cervical lordotic curvature, thoracic kyphotic curvature, lumbar lordotic curvature. Cervical paraspinous muscle shows symmetrical on inspection, on palpation shows some moderate tenderness diffusely in the inferior aspect of the cervical paraspinous muscles, more on the left than the right and in the superior medial trapezius without atrophy, hypertrophy without trigger points. The patient shows good rotation of motion of cervical spine both laterally as well as extension and flexion without significant pain reported. EXTREMITIES: Upper extremities show deep tendon reflexes 2+ in the biceps, triceps tendons. 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 Peripheral pulses are 2+ radial distribution. No peripheral edema is noted bilaterally. Options were discussed with the patient. The patient's old chart was reviewed as his current medication regimen updated. Current review of systems updated today as well. We will proceed with a cervical epidural steroid injection today with fluoroscopic guidance. Risks were again discussed including, but not limited to, bleeding, infection, possibility of epidural hematoma, subsequent neurological compromise, dural puncture, headaches, spinal cord and/or nerve damage, side effects of steroid medication and poor results regarding pain control. The patient understands and wished to proceed. The patient to return to clinic in approximately 2 weeks for followup, was counseled as to his return appointment, activity level and side effects to be aware of. DIAGNOSES: Cervical radiculopathy with cervical degenerative disk disease and cervical spinal stenosis and spondylosis. PROCEDURE: Cervical epidural steroid injection, translaminar approach C6-C7 level using C-arm fluoroscopic guidance under sterile prep and drape using local anesthetic. MEDICATION INJECTED: A total of 120 mg Depo-Medrol plus 5 mL of preservative-free normal saline and 2 mL of Isovue for contrast. CONDITION AT DISCHARGE: Stable. The patient tolerated the procedure well, had no complications. ESTHER HANKS MD DR: WILLI/cassie JOB#: [id number] / [id number]
== END | disposition home or self-care (01) ==
LOC: PNCL 10:11
PROVIDERS: ATTEND Anesthesiology
DX: M50.123 Cervical disc disorder at C6-C7 level with radiculopathy (principal); M51.16 Intervertebral disc disorders with radiculopathy, lumbar region; M48.02 Spinal stenosis, cervical region; Z88.5 Allergy status to narcotic agent; Z88.1 Allergy status to other antibiotic agents
CPT/HCPCS: 62321; J1030; J1040; Q9965

== ENCOUNTER → 2018-09-05 | Outpatient (CLI) | payer BC ==
[2018-06-27 14:45] VITALS: BP 156/96
[~2018-09-05] MED LIST changes: -IOHEXOL 180 MG/ML 10 ML VIAL. ONE; -LIDOCAINE 1% PF 2 ML VIAL. ONE; -methylPREDNISolone ACETATE 40 MG/ML VIAL. ONE; -methylPREDNISolone ACETATE 80 MG/ML VIAL. ONE
--- NOTE | 2018-09-05 22:53 | PAIN ---
DATE OF SERVICE: 09/05/2018 PROGRESS NOTE FOR PAIN CLINIC DIAGNOSES: 1. Cervical radiculopathy with cervical degenerative disk disease and cervical spinal stenosis. 2. Lumbar radiculopathy with lumbar degenerative disk disease. HISTORY OF PRESENT ILLNESS: The patient is a 53-year-old male who returns for followup status post cervical epidural steroid injection x 1. The patient reports about 50% improvement overall in the neck and shoulders, mainly in the left upper extremity. The patient reports this lasted for about 2 weeks or so and then the pain began to return in the base of the neck and shoulder, still having significant headaches to the point of causing significant nausea and even some vomiting. The patient reports the pain is a 10 on a scale of 10 at its worst, 9 on average, 8 at its least and is an 8 today, aching, sharp, tight, shooting, cramping, stabbing, burning, tingling, radiating, constant, becoming more severe and more unbearable in the base of the neck and the left upper extremity. The patient also has a low back pain and left lower extremity as previous. The patient reports no new motor or sensory deficits, no new bowel or bladder incontinence or other complaints. PHYSICAL EXAMINATION: VITAL SIGNS: The patient's blood pressure is 154/114, pulse 72, respirations 18, temperature 97.9 degrees Fahrenheit, weight is 219 pounds and height is 5 feet 9 inches. GENERAL: The patient is awake, alert, oriented, appropriate, very pleasant demeanor. HEENT: Head is normocephalic and atraumatic. Extraocular movements are intact and symmetrical. Oral cavity, mucous membranes are moist and pink. Dentition is intact. NECK: Shows anterior throat is supple without palpable lymphadenopathy noted. Swallow reflex is symmetrical. CHEST: Shows normal with inspection. Breath sounds are clear to auscultation bilaterally. HEART: Shows S1 and S2 clear. No murmurs are auscultated. ABDOMEN: Soft, obese, nontender and nondistended. No palpable organomegaly is noted. No rebound or guarding demonstrated. BACK: Shows spine grossly in the midline. Cervical lordotic curvature is intact as is thoracic kyphotic curvature and lumbar lordotic curvature. Cervical paraspinous muscle shows symmetrical on inspection. On palpation shows some moderate tenderness bilaterally in the middle and lower distribution of the paraspinous muscles, but only diffusely without radiation. The patient has good rotational motion of the cervical spine, both laterally greater than 45 degrees, right and left as well as full extension, full forward flexion without significant pain reported. Upper extremities show deep tendon reflexes 2+ in the biceps and triceps tendons. Motor exam is approximately 4 on a scale 5 on the left and 5/5 on the right. Lower extremities show deep tendon reflexes 1+ in the patellar and tendo calcaneus tendons bilaterally. Motor exam is 5/5 with dorsiflexion and extension bilaterally. Peripheral pulses are 2+ radial and 1+ posterior tibia. No peripheral edema is noted in the upper or lower extremities. Options were discussed with the patient. The patient's old chart was reviewed as was his current medication regimen updated. Current review of systems updated today as well. We will preauthorize the patient for a second cervical epidural steroid injection as he still has some significant radiating pain in a radicular pattern in the left upper extremity in C6-C7 dermatomal distribution, also some low back and left lower extremity pain in the lumbar distribution, but we will focus on his cervical radiculopathy first. The patient was given a refill for medications include Zanaflex and we will change hydrocodone to oxycodone 7.5 mg with instructions and side effects of to be aware of as it does help him sleep and decrease the pain. He is using it about once or twice a day on average the hydrocodone without significant improvement or with lessening and significant pain control. We will change this from hydrocodone to oxycodone as noted. The patient was given instruction as well as side effects to be aware of with each of the medications. We will follow up in approximately 2 weeks. We will plan on second cervical epidural steroid injection at that time. ESTHER HANKS MD DR: WILLI/cassie JOB#: [id number] / [id number]
== END | disposition home or self-care (01) ==
LOC: PNCL 10:09
PROVIDERS: ATTEND Anesthesiology
DX: M50.123 Cervical disc disorder at C6-C7 level with radiculopathy (principal); M48.02 Spinal stenosis, cervical region; M51.16 Intervertebral disc disorders with radiculopathy, lumbar region
CPT/HCPCS: 99212

== ENCOUNTER 2018-09-19 08:43 | Emergency (ER) | payer BC ==
[~2018-09-19] VITALS: Ht 175.3 cm; Wt 88.9 kg
[~2018-09-19 08:43] MED LIST changes: -IOHEXOL 180 MG/ML 10 ML VIAL. ONE; -LIDOCAINE 1% PF 2 ML VIAL. ONE; -methylPREDNISolone ACETATE 40 MG/ML VIAL. ONE; -methylPREDNISolone ACETATE 80 MG/ML VIAL. ONE
[2018-09-19 09:10] LABS: BASO # 0.1 x10^3/uL (0.0-0.2); BASO % 1 % (0-3); EOS # 0.2 x10^3/uL (0.0-0.7); EOS % 3 % (0-3); HEMATOCRIT 47.7 % (39.0-53.0); HEMOGLOBIN 16.9 g/dL (13.0-17.5); LYMPH # 2.5 x10^3/uL (1.0-4.8); LYMPH % 35 % (24-48); MEAN CORPUSCULAR HEMOGLOBIN 32 pg (25-35); MEAN CORPUSCULAR HGB CONC 36 g/dL (31-37); MEAN CORPUSCULAR VOLUME 91 fL (79-100); MONO # 0.6 x10^3/uL (0.0-1.1); MONO % 8 % (0-9); NEUT # 3.8 x10^3uL (1.8-7.7); NEUT % 53 % (31-73); PLATELET COUNT 245 x10^3/uL (140-400); RED BLOOD COUNT 5.26 x10^6/uL (4.30-5.70); RED CELL DISTRIBUTION WIDTH 12.8 % (11.5-14.5); WHITE BLOOD COUNT 7.1 x10^3/uL (4.0-11.0)
--- NOTE | 2018-09-19 09:11 | EKG ---
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
[2018-09-19 09:39] LABS: CALCIUM 9.5 mg/dL (8.5-10.1); CREATININE 1.2 mg/dL (0.7-1.3); GFR 63.3; POTASSIUM 4.7 mmol/L (3.5-5.1)
[2018-09-19 09:43] LABS: BILIRUBIN,URINE NEGATIVE (NEG); CLARITY,URINE CLEAR; COLOR,URINE YELLOW; NITRITE,URINE NEGATIVE (NEG); PROTEIN,URINE NEGATIVE (NEG-TRACE); UROBILINOGEN,URINE 0.2 mg/dL (0.2 mg/dL)
[2018-09-19 09:44] LABS: ALBUMIN 3.9 g/dL (3.4-5.0); MAGNESIUM 2.3 mg/dL (1.8-2.4); TOTAL BILIRUBIN 0.5 mg/dL (0.2-1.0); TOTAL PROTEIN 7.7 g/dL (6.4-8.2)
--- NOTE | 2018-09-19 09:44 | PHYS DOC ---
Past Medical History Past Medical History: A-Fib, Arrhythmia, Hypertension, Kidney Stone Additional Past Medical Histor: bradycardia Past Surgical History: Cholecystectomy, Pacemaker, Other Additional Past Surgical Histo: KIDNEY STONES, ELBOW, WRIST SX Alcohol Use: None Drug Use: None Adult General Chief Complaint Chief Complaint: CHEST PAIN HPI HPI Patient is a 53 year old male with history of arrhythmias, A. fib, hypertension , pacemaker, who presents today complaining of a sharp constant 5 out of 10 left -sided chest pain radiating to the left upper extremity that has been going on in since yesterday. Patient denies anything exacerbating or making the pain better. He states he has history of chronic neck pain and gets injections to his neck. He states he typically has pain radiating to the left upper extremity from the chronic neck pain but he is not sure if today's chest pain has anything to do with the chronic left upper extremity pain from the neck pain. He states he went to the pain clinic today and got injections to his neck and they sent him to the ED to be evaluated. Patient states he took a full dose aspirin this morning. Review of Systems Review of Systems Constitutional: Denies fever or chills [] Eyes: Denies change in visual acuity, redness, or eye pain [] HENT: Denies nasal congestion or sore throat [] Respiratory: Denies cough or shortness of breath [] Cardiovascular: Reports left-sided chest pain radiating to the left upper extremity. GI: Denies abdominal pain, nausea, vomiting, bloody stools or diarrhea [] : Denies dysuria or hematuria [] Musculoskeletal: Reports chronic neck pain radiating to the left upper extremity. Denies back pain Integument: Denies rash or skin lesions [] Neurologic: Denies headache, focal weakness or sensory changes [] All other systems were reviewed and found to be within normal limits, except as documented in this note. Current Medications Current Medications Current Medications Medications (Trade) Dose Ordered Sig/Hayder Start Time Stop Time Status Last Admin Dose Admin Clonidine HCl (Catapres) 0.1 mg 1X ONCE 09/19/18 09:45 09/19/18 09:49 DC 09/19/18 09:57 0.1 MG Fentanyl Citrate (Fentanyl 2ml Vial) 50 mcg 1X ONCE 09/19/18 09:45 09/19/18 09:49 DC 09/19/18 09:56 50 MCG Ondansetron HCl (Zofran) 4 mg 1X ONCE 09/19/18 09:45 09/19/18 09:49 DC 09/19/18 09:56 4 MG Allergies Allergies Allergies Coded Allergies Type Severity Reaction Last Updated Verified amoxicillin Allergy Intermediate RASH / HIVES 03/25/16 Yes codeine Allergy Intermediate ITCHY, BROKE OUT WITH RASH 03/25/16 Yes Physical Exam Physical Exam Constitutional: Well developed, well nourished, no acute distress, non-toxic appearance. [] HENT: Normocephalic, atraumatic, bilateral external ears normal, oropharynx moist, no oral exudates, nose normal. [] Eyes: PERRLA, EOMI, conjunctiva normal, no discharge. [] Neck: Normal range of motion, no tenderness, supple, no stridor. [] Cardiovascular:Heart rate regular rhythm, no murmur [] Lungs & Thorax: Bilateral breath sounds clear to auscultation [] Abdomen: Bowel sounds normal, soft, no tenderness, no masses, no pulsatile masses. [] Skin: Warm, dry, no erythema, no rash. [] Back: No tenderness, no CVA tenderness. [] Extremities: No tenderness, no cyanosis, no clubbing, ROM intact, no edema. [] Neurologic: Alert and oriented X 3, normal motor function, normal sensory function, no focal deficits noted. [] Psychologic: Affect normal, judgement normal, mood normal. [] Current Patient Data Vital Signs Vital Signs Date Time Temp Pulse Resp B/P (MAP) Pulse Ox O2 Delivery O2 Flow Rate FiO2 09/19/18 09:57 67 09/19/18 09:56 24 96 09/19/18 09:10 98.7 157/113 (128) Room Air 98.7 Lab Values Laboratory Tests Test 09/19/18 09:00 09/19/18 09:28 White Blood Count 7.1 x10^3/uL (4.0-11.0) Red Blood Count 5.26 x10^6/uL (4.30-5.70) Hemoglobin 16.9 g/dL (13.0-17.5) Hematocrit 47.7 % (39.0-53.0) Mean Corpuscular Volume 91 fL (79-100) Mean Corpuscular Hemoglobin 32 pg (25-35) Mean Corpuscular Hemoglobin Concent 36 g/dL (31-37) Red Cell Distribution Width 12.8 % (11.5-14.5) Platelet Count 245 x10^3/uL (140-400) Neutrophils (%) (Auto) 53 % (31-73) Lymphocytes (%) (Auto) 35 % (24-48) Monocytes (%) (Auto) 8 % (0-9) Eosinophils (%) (Auto) 3 % (0-3) Basophils (%) (Auto) 1 % (0-3) Neutrophils # (Auto) 3.8 x10^3uL (1.8-7.7) Lymphocytes # (Auto) 2.5 x10^3/uL (1.0-4.8) Monocytes # (Auto) 0.6 x10^3/uL (0.0-1.1) Eosinophils # (Auto) 0.2 x10^3/uL (0.0-0.7) Basophils # (Auto) 0.1 x10^3/uL (0.0-0.2) Sodium Level 142 mmol/L (136-145) Potassium Level 4.7 mmol/L (3.5-5.1) Chloride Level 104 mmol/L (98-107) Carbon Dioxide Level 26 mmol/L (21-32) Anion Gap 12 (6-14) Blood Urea Nitrogen 23 mg/dL (8-26) Creatinine 1.2 mg/dL (0.7-1.3) Estimated GFR (Cockcroft-Gault) 63.3 BUN/Creatinine Ratio 19 (6-20) Glucose Level 111 mg/dL (70-99) H Calcium Level 9.5 mg/dL (8.5-10.1) Magnesium Level 2.3 mg/dL (1.8-2.4) Total Bilirubin 0.5 mg/dL (0.2-1.0) Aspartate Amino Transferase (AST) 51 U/L (15-37) H Alanine Aminotransferase (ALT) 98 U/L (16-63) H Alkaline Phosphatase 124 U/L (46-116) H Troponin I Quantitative < 0.017 ng/mL (0.000-0.055) Total Protein 7.7 g/dL (6.4-8.2) Albumin 3.9 g/dL (3.4-5.0) Albumin/Globulin Ratio 1.0 (1.0-1.7) Thyroid Stimulating Hormone (TSH) 2.328 uIU/mL (0.358-3.74) Urine Collection Type Unknown Urine Color Yellow Urine Clarity Clear Urine pH 5.0 Urine Specific [place] 1.025 Urine Protein Negative mg/dL (NEG-TRACE) Urine Glucose (UA) Negative mg/dL (NEG) Urine Ketones (Stick) Negative mg/dL (NEG) Urine Blood Negative (NEG) Urine Nitrite Negative (NEG) Urine Bilirubin Negative (NEG) Urine Urobilinogen Dipstick 0.2 mg/dL (0.2 mg/dL) Urine Leukocyte Esterase Negative (NEG) Urine RBC Rare /HPF (0-2) Urine WBC Rare /HPF (0-4) Urine Squamous Epithelial Cells Occ /LPF Urine Bacteria Few /HPF (0-FEW) Urine Mucus Slight /LPF Urine Opiates Screen Neg (NEG) Urine Methadone Screen Neg (NEG) Urine Barbiturates Neg (NEG) Urine Phencyclidine Screen Neg (NEG) Urine Amphetamine/Methamphetamine Neg (NEG) Urine Benzodiazepines Screen Neg (NEG) Urine Cocaine Screen Neg (NEG) Urine Cannabinoids Screen Neg (NEG) Urine Ethyl Alcohol Neg (NEG) Laboratory Tests 09/19/18 09:00 Laboratory Tests 09/19/18 09:00 EKG EKG 08:[address] Frost sinus rhythm heart rate 78 no STEMI[] Radiology/Procedures Radiology/Procedures []PROCEDURE: ACUTE ABDOMEN SERIES Examination: ACUTE ABDOMEN SERIES History: EPIGASTRIC PAIN SINCE YESTERDAY, NAUSEA, CONSTIPATION Comparison/Correlation: None Findings: Supine and upright views of the abdomen were obtained. Frontal view chest was obtained. Dual-lead left-sided pacemaker is present. Heart size and pulmonary vasculature are normal. No infiltrate, pleural effusion, or pneumothorax. Right upper quadrant surgical clips are present. Fluid levels are present within nondistended bowel. No significant distention of small bowel is present although gas is present within nondistended bowel. No suspicious abdominal calcifications. Impression: No infiltrate. No bowel obstruction. Electronically signed by: Mayco Vergara MD (09/19/2018 9:53 AM) [facility] DICTATED and SIGNED BY: MAYCO VERGARA MD DATE: 09/19/18951 Course & Med Decision Making Course & Med Decision Making Pertinent Labs and Imaging studies reviewed. (See chart for details) This is a 53-year-old male patient presented to the ED today with complaints of left-sided chest pain radiating to the left upper extremity that has been going on since yesterday, he took a full dose aspirin prior to coming to the ED. Patient's cardiac workup is negative. His liver enzymes were slightly up with AST of 51 ALT of 98, looking at patient's previous labs, his had elevated liver enzymes for a while. Patient was offered admission to the hospital, he declined. Patient is alert oriented 4, he is able to make his own decisions. He was given the risk of leaving AMA including and disability. He decided to leave. He states he has been in the ED multiple times and has been admitted but they never find anything wrong. Dragon Disclaimer Dragon Disclaimer This electronic medical record was generated, in whole or in part, using a voice recognition dictation system. Departure Departure Impression: Primary Impression: Chest pain Additional Impression: Cervical radiculopathy Disposition: 07 AGAINST MEDICAL ADVICE Condition: STABLE Referrals: MIGUELITO THOMAS (PCP) Problem Qualifiers Primary Impression: Chest pain Chest pain type: unspecified Qualified Codes: R07.9 - Chest pain, unspecified SERGIO GUZMAN CHEMICAL ENGRAVER Sep 19, 2018 09:44
[2018-09-19] MEDS ORDERED: ONDANSETRON PF 4 MG/2 ML VIAL. IV ONE (09:45)
[2018-09-19] MEDS ORDERED: cloNIDine HCL 0.1 MG TABLET PO ONE (09:45)
[2018-09-19] MEDS ORDERED: fentaNYL PF VIAL 100 MCG/2 ML VIAL IV ONE (09:45)
[2018-09-19 09:55] LABS: BACTERIA,URINE FEW /HPF (0-FEW); RBC,URINE RARE /HPF (0-2); SQUAMOUS EPITHELIAL CELL,UR OCC /LPF; WBC,URINE RARE /HPF (0-4)
--- NOTE | 2018-09-19 09:56 | RAD ---
Examination: ACUTE ABDOMEN SERIES History: EPIGASTRIC PAIN SINCE YESTERDAY, NAUSEA, CONSTIPATION Comparison/Correlation: None Findings: Supine and upright views of the abdomen were obtained. Frontal view chest was obtained. Dual-lead left-sided pacemaker is present. Heart size and pulmonary vasculature are normal. No infiltrate, pleural effusion, or pneumothorax. Right upper quadrant surgical clips are present. Fluid levels are present within nondistended bowel. No significant distention of small bowel is present although gas is present within nondistended bowel. No suspicious abdominal calcifications. Impression: No infiltrate. No bowel obstruction. Electronically signed by: Mayco Euceda MD (09/19/2018 9:53 AM) [facility]
[2018-09-19 10:13] LABS: BARBITURATES NEG (NEG); BENZODIAZEPINES NEG (NEG); CANNABINOIDS NEG (NEG); COCAINE NEG (NEG); METHADONE NEG (NEG); OPIATES NEG (NEG); PHENCYCLIDINE NEG (NEG)
[2018-09-19 10:14] LABS: AMPHETAMINE/METHAMPHETAMINE NEG (NEG)
[2018-09-19 11:00] VITALS: BP 137/92
== END 2018-09-19 11:00 | disposition left against medical advice (07) ==
LOC: ER 08:43
DX: M54.12 Radiculopathy, cervical region (principal); R07.89 Other chest pain; M79.602 Pain in left arm; I48.91 Unspecified atrial fibrillation; I10 Essential (primary) hypertension; Z87.442 Personal history of urinary calculi; Z90.49 Acquired absence of other specified parts of digestive tract; Z95.0 Presence of cardiac pacemaker; Z88.1 Allergy status to other antibiotic agents; Z88.5 Allergy status to narcotic agent
CPT/HCPCS: 36415; 74022; 80053; 80307; 81001; 83735; 84443; 84484; 85025; 93005; 99285; J2405; J3010

== ENCOUNTER → 2018-09-19 | Outpatient (CLI) | payer BC ==
[2018-06-27 14:45] VITALS: BP 156/96
[~2018-09-19] MED LIST changes: +IOHEXOL 180 MG/ML 10 ML VIAL. ONE; +LIDOCAINE 1% PF 2 ML VIAL. ONE; +methylPREDNISolone ACETATE 40 MG/ML VIAL. ONE; +methylPREDNISolone ACETATE 80 MG/ML VIAL. ONE
--- NOTE | 2018-09-19 19:54 | PAIN ---
DATE OF SERVICE: 09/19/2018 PROGRESS NOTE FOR PAIN CLINIC DIAGNOSES: 1. Cervical radiculopathy with cervical degenerative disk disease and cervical spinal stenosis. 2. Lumbar radiculopathy with lumbar degenerative disk disease. HISTORY OF PRESENT ILLNESS: The patient is a 53-year-old male who returns for followup status post cervical epidural steroid injection x 1. The patient reports he did very well about 50% improvement, still pain in the left upper extremity and arm and shoulder, especially causing headaches. The patient reports pain is a 10 on a scale of 10 at its worse, 10 on average, 8 at its least and is an 8 today. The patient reports it is tingling, cramping, stabbing, aching, sharp, tight, shooting, constant, becoming more radiating, severe, more unbearable, also complains of pain in his low back and left lower extremity as well. He does have an L5-S1 disk protrusion on that side. The patient reports that his leg gave out on him once yesterday while he was ambulating. The patient reports no other complaints, no other new findings. PHYSICAL EXAMINATION: VITAL SIGNS: The patient's blood pressure is 169/102, pulse 85, respirations 18, temperature 97.6 degrees Fahrenheit. Height is 5 feet 9 inches, weight is 216 pounds. GENERAL: The patient is awake, alert, oriented, appropriate, very pleasant demeanor. HEENT: Head shows normocephalic, atraumatic. Extraocular movements are intact, symmetrical. Oral cavity: Mucous membranes moist and pink. Dentition is intact. NECK: Shows anterior throat supple without palpable lymphadenopathy noted. Swallow reflex symmetrical. CHEST: Shows normal with inspection. Breath sounds clear to auscultation bilaterally. HEART: Shows S1, S2 clear. No murmurs auscultated. ABDOMEN: Soft, nontender, nondistended. No palpable organomegaly is noted. No rebound or guarding demonstrated. BACK: Shows spine grossly in the midline. Normal appearing thoracic kyphosis and lumbar lordotic curvature. Lumbar paraspinous muscle shows symmetrical on inspection with some moderate tenderness in the lower lumbar distribution. Cervical paraspinous muscle shows symmetrical as well, with palpation shows some moderate tenderness in the left inferior aspect of the cervical paraspinous musculature as well as into the superior medial trapezius on the left, but without radiation. The patient has good rotational motion of the cervical spine without guarding including extension, flexion and right and left lateral rotation greater than 45 degrees. EXTREMITIES: The patient's upper extremities show deep tendon reflexes 2+ in the biceps and triceps tendons. Motor exam is approximately 4 on a scale of 5 on the left and 5/5 on the right. Lower extremities show deep tendon reflexes 1+ in the patellar and tendo calcaneus tendons. Motor exam is 5/5 bilaterally. Peripheral pulses are 2+ radial, 1+ posterior tibial. No peripheral edema is noted bilaterally. Options were discussed with the patient. The patient's old chart was reviewed as his current medication regimen updated. Current review of systems updated today as well and we will proceed with a second in a series of cervical epidural steroid injection today with fluoroscopic guidance. Risks were discussed including, but not limited to, bleeding, infection, possibility of epidural hematoma, subsequent neurologic compromise, dural puncture, headaches, spinal cord and/or nerve damage, side effects of steroid medication and poor results regarding pain control. The patient understands and wished to proceed. The patient to return to clinic in approximately 2 weeks for followup, was counseled on return appointment, activity level and side effects to be aware of. DIAGNOSIS: Cervical radiculopathy with cervical degenerative disk disease and cervical spinal stenosis. PROCEDURE: Cervical epidural steroid injection, translaminar approach at the C6-C7 level using C-arm fluoroscopic guidance under sterile prep and drape using local anesthetic. MEDICATION INJECTED: A total of 120 mg Depo-Medrol plus 5 mL of preservative-free normal saline and 2 mL of Isovue for contrast. CONDITION AT DISCHARGE: Stable. The patient tolerated the procedure well, had no complications. ESTHER HANKS MD DR: WILLI/cassie JOB#: [id number] / [id number]
== END | disposition home or self-care (01) ==
LOC: PNCL 07:39
PROVIDERS: ATTEND Anesthesiology
DX: M50.123 Cervical disc disorder at C6-C7 level with radiculopathy (principal); M48.02 Spinal stenosis, cervical region; M51.16 Intervertebral disc disorders with radiculopathy, lumbar region; Z88.1 Allergy status to other antibiotic agents; Z88.5 Allergy status to narcotic agent
CPT/HCPCS: 62321; J1030; J1040; Q9965

== ENCOUNTER → 2018-11-07 | Outpatient (CLI) | payer BC ==
[~2018-11-07] MED LIST changes: -HYDR-2762 PO; +HYDR-2765 PO
--- NOTE | 2018-11-07 18:31 | PAIN ---
DATE OF SERVICE: 11/07/2018 PROGRESS NOTE FOR PAIN CLINIC DIAGNOSES: 1. Cervical radiculopathy with cervical degenerative disk disease and cervical spinal stenosis. 2. Lumbar radiculopathy with lumbar degenerative disk disease. HISTORY OF PRESENT ILLNESS: The patient is a 53-year-old male who returns for followup status post cervical epidural steroid injections x 2, first one on 08/22 and the second one on 09/19. The patient reports he did well initially with these, but his main complaint now is his low back and left lower extremity. The patient reports significant pain in the low back and left lower extremity, radiating into the posterior gluteus, posterior thigh, posterior calf and into the foot, which feels like he had a knife in his foot, in his ankle. The patient reports it is an aching, sharp, tight, dull, alternating in the back, shooting in the lower extremity, tingling, burning, cramping, stabbing, becoming more constant, more severe, more unbearable, difficult to walk. The patient reports he has been losing some motor function in his left leg with fatigue. When he is ambulating, his right leg is strong, but the left leg is going to give out. He has stumbled a few times, but has not fallen. The patient reports still some pain in the base of the neck and shoulders, in the upper extremities as it was previously, but again his chief complaint is low back and left lower extremity pain in a radicular pattern as well. The patient does have L4-L5 and L5-S1 disk space bulging with the eccentricity to the left in the L5-S1 space with mild to moderate left greater than right neural foraminal stenosis on MRI scan from 07/15/2018. The patient reports his pain is an 8 on a scale of 10 at its worst, 8 on average, 7 at its least and is an 8 today. The patient reports no loss of motor function completely, but again significant fatigability to the left leg. No bowel or bladder incontinence. PHYSICAL EXAMINATION: VITAL SIGNS: The patient's blood pressure is 139/99, pulse 87, respirations are 18, temperature 97.9 degrees Fahrenheit, height is 5 feet 9 inches and weight is 217 pounds. GENERAL: The patient is awake, alert, oriented, appropriate, has very pleasant demeanor. HEENT: Head shows normocephalic, atraumatic. Extraocular movements are intact and symmetrical. Oral cavity: Mucous membranes are moist and pink. Dentition is intact. NECK: Shows anterior throat supple without palpable lymphadenopathy noted. Swallow reflex is symmetrical. CHEST: Shows normal on inspection. Breath sounds are clear to auscultation bilaterally. HEART: Shows S1, S2 clear. No murmurs auscultated. ABDOMEN: Soft, nontender, nondistended. No palpable organomegaly is noted. No rebound or guarding demonstrated. BACK: Shows spine grossly in the midline. Normal appearing thoracic kyphosis and lumbar lordotic curvature as well as cervical lordotic curvature. Cervical paraspinous muscle shows symmetrical with some moderate tenderness diffusely bilaterally in the middle and inferior aspect of the cervical paraspinous musculature without significant radiation. The patient has good rotational motion, slightly guarded with extension, but not with forward flexion of the cervical spine. Lumbar paraspinous muscle shows symmetrical on inspection, on palpation shows some moderate tenderness throughout the upper, middle and lower distribution of the paraspinous muscles diffusely without radiation. No tenderness over the spinous processes, sacrum or sacroiliac regions. The patient has good rotational motion of lumbar spine, both laterally as well as extension and flexion greater than 10 degrees, forward flexion 45 degrees without difficulty or pain reported. EXTREMITIES: Lower extremities show deep tendon reflexes at 1+ in the patella and tendo-calcaneus tendons. Motor exam is 5/5 with dorsiflexion, extension, quadriceps and hamstring flexion. Peripheral pulses are 1+ posterior tibia. No peripheral edema is noted. The patient does have a mild positive straight leg raise on the left at about 40 degrees, decreased with knee flexion, right side is negative. Gaenslen's and Armen's maneuvers are negative bilaterally. Options were discussed with the patient. The patient's old chart was reviewed as his current medication regimen updated. Current review of systems updated today as well. We will preauthorize the patient for a lumbar epidural steroid injection. He does have radicular pain in L5-S1 dermatomal distribution on the left with MRI scans finding as noted at that level with some weakness developing as noted. The patient will be given refill prescription for Zanaflex as well as Percocet 7.5 mg with instructions and side effects to be aware of with each of the medications as this is helping him sleep and he is not using them every day. The patient will return to the clinic in approximately 1 week to plan on lumbar epidural steroid injection at that time at L5-S1 level with radicular pain in the left lower extremity. ESTHER HANKS MD DR: WILLI/cassie JOB#: [id number] / [id number]
== END | disposition home or self-care (01) ==
LOC: PNCL 10:17
PROVIDERS: ATTEND Anesthesiology
DX: M48.02 Spinal stenosis, cervical region (principal); M50.10 Cervical disc disorder with radiculopathy, unspecified cervical region; M51.16 Intervertebral disc disorders with radiculopathy, lumbar region
CPT/HCPCS: G0463

== ENCOUNTER → 2018-11-21 | Outpatient (CLI) | payer BC ==
[~2018-11-21] MED LIST changes: +IOHEXOL 180 MG/ML 10 ML VIAL. ONE; +methylPREDNISolone ACETATE 40 MG/ML VIAL. ONE; +methylPREDNISolone ACETATE 80 MG/ML VIAL. ONE
--- NOTE | 2018-11-21 13:05 | PAIN ---
DATE OF SERVICE: 11/21/2018 PROGRESS NOTE FOR PAIN CLINIC DIAGNOSES: 1. Cervical radiculopathy with cervical degenerative disk disease and cervical spinal stenosis. 2. Lumbar radiculopathy with lumbar degenerative disk disease. HISTORY OF PRESENT ILLNESS: The patient is a 53-year-old male who returns for followup status post cervical epidural steroid injections x 2. The patient reports only minimal decrease in pain about 50% for about 2-3 weeks up to a month and then the pain returned. The patient reports his main complaint, however, is low back and left lower extremity pain. The patient reports it is 9 on a scale of 10 at its worst, 8 on average, 6 at its least and is an 8 today. The patient reports it is aching, sharp, dull, tight, shooting, cramping, stabbing, tingling, radiating, becoming more constant, more severe, more unbearable in the low back and left lower extremity, mostly in the posterior aspect of the gluteus, thigh and calf, some on the right as well, but mainly on the left. The patient reports no new motor or sensory deficits, no new bowel or bladder incontinence. The patient reports it awakens him from sleep at least every 2-3 hours at night his neck and shoulder pain, which did not respond well long-term to injections. PHYSICAL EXAMINATION: VITAL SIGNS: Today, the patient's blood pressure 138/104, pulse is 81, respirations are 18, temperature is 97.9 degrees Fahrenheit, height is 5 feet 9 inches, weight is 219 pounds. GENERAL: The patient is awake, alert, oriented, appropriate, very pleasant demeanor. HEENT: Shows normocephalic, atraumatic. Extraocular movements are intact and symmetrical. Oral cavity, mucous membranes are moist and pink. Dentition intact. NECK: Shows anterior throat supple without palpable lymphadenopathy noted. Swallow reflex symmetrical. CHEST: Shows normal on inspection. Breath sounds are clear to auscultation bilaterally. HEART: Shows S1, S2 clear. No murmurs auscultated. ABDOMEN: Soft, nontender, nondistended. No palpable organomegaly is noted. No rebound or guarding demonstrated. BACK: Shows spine grossly in the midline, normal-appearing cervical lordotic curvature, thoracic kyphotic curvature and lumbar lordotic curvature. Cervical paraspinous muscle shows symmetrical on inspection, with palpation shows some moderate tenderness diffusely bilaterally in the cervical paraspinous muscles, mainly in the middle and lower distribution, but without radiation. The patient has good rotational motion of cervical spine, both laterally as well as extension and flexion without significant difficulty. Lower lumbar spine shows the paraspinous musculature is symmetrical with moderate palpation throughout the upper, middle, lower distribution of paraspinous muscles, but not over the sacrum or sacroiliac regions. The patient has good rotational motion of lumbar spine, both laterally greater than 10 degrees right and left as well as extension greater than 10 degrees, forward flexion 45 degrees without significant pain reported. EXTREMITIES: The patient's lower extremities show deep tendon reflexes 1+ in the patellar and tendo-calcaneus tendons. Motor exam shows 5/5 dorsiflexion and extension, equal. Peripheral pulses are 1+ posterior tibial. No peripheral edema is noted. PLAN: Options were discussed with the patient. The patient's old chart was reviewed as his current medication regimen today. Current review of systems updated today as well. We will proceed with lumbar epidural steroid injections, the third in this series. Risks were again discussed including, but not limited to bleeding, infection, possibility of epidural hematoma, subsequent neurological compromise, dural puncture, headaches, spinal cord and/or nerve damage, side effects of steroid medication and poor results regarding pain control. The patient understands and wished to proceed. The patient will return to clinic in approximately 2 weeks for followup, was counseled on return appointment, activity level and side effects to be aware of. DIAGNOSES: Lumbar radiculopathy with lumbar degenerative disk disease. PROCEDURE: Lumbar epidural steroid injection, translaminar approach L5-S1 level using C-arm fluoroscopic guidance under sterile prep and drape using local anesthetic. MEDICATION INJECTED: A total of 120 mg Depo-Medrol plus 10 mL of preservative-free normal saline and 2 mL of Isovue for contrast. CONDITION AT DISCHARGE: Stable. The patient tolerated procedure well, had no complications. ESTHER HANKS MD DR: WILLI/cassie JOB#: [id number] / [id number]
== END | disposition home or self-care (01) ==
LOC: PNCL 10:43
PROVIDERS: ATTEND Anesthesiology
DX: M51.16 Intervertebral disc disorders with radiculopathy, lumbar region (principal); M48.02 Spinal stenosis, cervical region; M50.10 Cervical disc disorder with radiculopathy, unspecified cervical region; Z88.1 Allergy status to other antibiotic agents; Z88.5 Allergy status to narcotic agent
CPT/HCPCS: 62323; J1030; J1040; Q9965

== ENCOUNTER 2019-02-06 14:39 | Inpatient (IN) | payer BC ==
[~2019-02-06] VITALS: Ht 175.3 cm; Wt 103.1 kg
[~2019-02-06 14:39] MED LIST changes: -IOHEXOL 180 MG/ML 10 ML VIAL. ONE; -methylPREDNISolone ACETATE 40 MG/ML VIAL. ONE; -methylPREDNISolone ACETATE 80 MG/ML VIAL. ONE
[2019-02-06 15:24] VITALS: BP 123/83
--- NOTE | 2019-02-06 15:25 | PDOC1 ---
History and Physical Date of Admission Date of Admission DATE: 02/06/19 TIME: 15:25 Identification/Chief Complaint Chief Complaint Chest pain Source Source: Chart review, Patient History of Present Illness History of Present Illness Patient is a 53-year-old male who presents with chest pain, neck pain, headache , and visual changes in both eyes. This started while he was driving. He returned home took his blood pressure and found that was in the 60s systolic. He was recently hospitalized and had his flecainide dosing adjusted as well as his benicar and had a fentanyl patch prescribed for chronic neck and back pain. He called his [employer], who directed him to present to the emergency department. He reports that the visual changes have changed from a bright light to a slightly dimmer than usual vision. Nothing seems to make the discomfort better or worse. He was admitted to the hospital several days ago for similar symptoms and found to have negative cardiac enzymes at that time. CT scan of the head and cervical spine showed severe multilevel degenerative disease, no evidence of stroke at that time. Nothing seems to make today's symptoms better or worse Cr noted at 1.8 today. Past Medical History Cardiovascular: AFIB, HTN, Other Pulmonary: No pertinent hx GI: No pertinent hx Heme/Onc: No pertinent hx Hepatobiliary: No pertinent hx Psych: No pertinent hx Musculoskeletal: Osteoarthritis Rheumatologic: No pertinent hx Infectious disease: No pertinent hx Renal/: Other Endocrine: No pertinent hx Past Surgical History Past Surgical History: Pacemaker, Cholecystectomy Family History Family History: Cancer, Coronary Artery Disease Social History ALCOHOL: occassional Drugs: None Current Medications Current Medications Active Scripts Active Metoprolol Tartrate 25 Mg Tablet 1 Tab PO BID Aspirin 325 Mg Tablet 1 Tab PO DAILY Flecainide Acetate 50 Mg Tablet 50 Mg PO BID 30 Days Reported Hydrocodone-Apap 7.5-325 (Hydrocodone Bit/Acetaminophen) 1 Each Tablet 1 Tab PO HS PRN Benicar Hct 20-12.5 Mg Tablet (Olmesartan/Hydrochlorothiazide) 1 Each Tablet 1 Tab PO DAILY Allergies Allergies: Coded Allergies: amoxicillin (Verified Allergy, Intermediate, RASH / HIVES, 03/25/16) codeine (Verified Allergy, Intermediate, ITCHY, BROKE OUT WITH RASH, ) ROS General: YES: Fatigue, Malaise; No: Chills, Night Sweats, Appetite, Other PSYCHOLOGICAL ROS: No: Anxiety, Behavioral Disorder, Concentration difficultie , Decreased libido, Depression, Disorientation, Hallucinations, Hostility, Irritablity, Memory difficulties, Mood Swings, Obsessive thoughts, Physical abuse, Sexual abuse, Sleep disturbances, Suicidal ideation, Other Eyes: Yes Blurry vision; No Decreased vision, No Double vision, No Dry eyes, No Excessive tearing, No Eye Pain, No Itchy Eyes, No Loss of vision, No Photophobia, No Scotomata, No Uses contacts, No Uses glasses, No Other HEENT: YES: Visual Changes; No: Heacaches, Hearing change, Nasal congestion, Nasal discharge, Oral lesions, Sinus pain, Sore Throat, Epistaxis, Sneezing, Snoring, Tinnitus, Vertigo, Vocal changes, Other ALLERGY AND IMMUNOLOGY: No: Hives, Insect Bite Sensitivity, Itchy/Watery Eyes, Nasal Congestion, Post Nasal Drip, Seasonal Allergies, Other Hematological and Lymphatic: No: Bleeding Problems, Blood Clots, Blood Transfusions, Brusing, Night Sweats, Pallor, Swollen Lymph Nodes, Other ENDOCRINE: No: Breast Changes, Galactorrhea, Hair Pattern Changes, Hot Flashes , Malaise/lethargy, Mood Swings, Palpitations, Polydipsia/polyuria, Skin Changes , Temperature Intolerance, Unexpected Weight Changes, Other Breast: No New/Changing Breast Lumps, No Nipple changes, No Nipple discharge, No Other Respiratory: No: Cough, Hemoptysis, Orthopnea, Pleuritic Pain, Shortness of breath, SOB with excertion, Sputum Changes, Stridor, Tachypnea, Wheezing, Other Cardiovascular: No Chest Pain, No Palpitations, No Orthopnea, No Paroxysmal Noc. Dyspnea, No Edema, No Lt Headedness, No Other Gastrointestinal: Yes Nausea, Yes Vomiting; No Abdominal Pain, No Diarrhea, No Constipation, No Melena, No Hematochezia, No Other Genitourinary: No Dysuria, No Frequency, No Incontinence, No Hematuria, No Retention, No Discharge, No Urgency, No Pain, No Flank Pain, No Other, No , No , No , No , No , No , No Musculoskeletal: No Gait Disturbance, No Joint Pain, No Joint Stiffness, No Joint Swelling, No Muscle Pain, No Muscular Weakness, No Pain In:, No Swelling In:, No Other Neurological: No Behavorial Changes, No Bowel/Bladder ControlChng, No Confusion , No Dizziness, No Gait Disturbance, No Headaches, No Impaired Coord/balance, No Memory Loss, No Numbness/Tingling, No Seizures, No Speech Problems, No Tremors, No Visual Changes, No Weakness, No Other Skin: No Dry Skin, No Eczema, No Hair Changes, No Lumps, No Mole Changes, No Mottling, No Nail Changes, No Pruritus, No Rash, No Skin Lesion Changes, No Other, No Acne Physical Exam General: Alert, Oriented X3, Cooperative, No acute distress HEENT: Atraumatic, PERRLA, EOMI, Mucous membr. moist/pink Lungs: Clear to auscultation, Normal air movement Heart: S1S2, RRR Abdomen: Normal bowel sounds, Soft, No tenderness, No hepatosplenomegaly, No masses Extremities: No clubbing, No cyanosis, No edema, Normal pulses, No tenderness/ swelling Skin: No rashes, No breakdown, No significant lesion Neuro: Normal gait, Normal speech, Strength at 5/5 X4 ext, Normal tone, Sensation intact, Cranial nerves 3-12 NL, Reflexes 2+ Psych/Mental Status: Mental status NL, Mood NL Images Images CXR - normal CT Head - No acute abnormality VTE Prophylaxis Ordered VTE Prophylaxis Devices: No VTE Pharmacological Prophylaxi: Yes Assessment/Plan Assessment/Plan A/P: Visual changes - less likely CVA, negative CT head. Sx resolved. This may have been related to hypotension rather than a TIA, will ask neuro to see. Cont ASA Hypotension - symptomatic, IVF resuscitation helped Afib - chronic, s/p PPM, on flecainide. Consult cardiology. Anticoagulation should be addressed though his CHADSVASC is low. ASA is still appropriate LINDSAY - Cr up to 1.8 from 1.2 baseline - will continue hydration. HOLD INDIGO/HCTZ Transaminitis - could be 2/2 hypotension. will check thyroid function and repeat LFTs in AM Intractable headache - seen by neurology, asking to be seen by his primary neurologist. Tylenol ok, no NSAIDS for his LINDSAY, compazine for now as well FEN - NSS, Cardiac diet PPX - Heparin TID FULL CODE Inpatient CVC for LINDSAY and hypotension with visual changes, likely 2 midnights MARV BAILEY MD Feb 06, 2019 15:25
[2019-02-06] MEDS ORDERED: HYDROcodone/APAP 7.5/325MG 1 TAB TABLET PO PRN (15:30)
[2019-02-06] MEDS ORDERED: LACTULOSE 20 GM/30 ML SOLUTION. PO PRN (15:30)
[2019-02-06] MEDS ORDERED: ONDANSETRON PF 4 MG/2 ML VIAL. IV PRN (15:30)
[2019-02-06] MEDS ORDERED: OLME1TAB25 PO (15:36)
[2019-02-06] MEDS ORDERED: HYDR-2765 PO (15:36)
[2019-02-06] MEDS ORDERED: GABA600T7 PO (15:36)
[2019-02-06] MEDS ORDERED: FENT1PAT91 TD (15:36)
[2019-02-06] MEDS ORDERED: FLEC100T PO (15:36)
[2019-02-06] MEDS ORDERED: PROCHLORPERAZINE 10 MG/2 ML VIAL. IV PRN (16:00)
[2019-02-06] MEDS ORDERED: IV NORMAL SALINE 1000ML BAG 1,000 ML IV SCH (16:30)
[2019-02-06] MEDS: ASPIRIN 325 MG TABLET PO SCH (16:30)
--- NOTE | 2019-02-06 16:49 | PDOC2 ---
NEUROLOGY CONSULT Date of Admission Date of Admission DATE: 02/06/19 TIME: 16:26 Reason for Consult Reason for Consult: Blurred vision Referring Physician Referring Physician: Dr. Boswell Source Source: Caregiver (), Chart review, Patient History of Present Illness History of Present Illness The patient is a 53-year-old right-handed male who was driving to meet his for lunch when he noticed bilateral blurred vision. He picked her up and he was describing along, she says, stating that he had severe pain in the back of his head and neck and blurred vision. He has had chronic neck and head pain. He is scheduled to see me for an EMG on 02/14. He went to the [facility] emergency department after returning home and finding a blood pressure of 60 systolic. NIH score was 0. He was also having some chest pain. He was in [facility] last week with similar symptoms. Both today and last week he had CT of the head and cervical spine, as reviewed below. He has been seeing Dr. Mcnair for chronic pain. He has had pain ever since he fell off a 2-1/2 story roof at age 22. He has had neck and back pain ever since. Pain radiates from the neck into the left upper extremity and also pain down into the left leg. Dr. Mcnair has given him 3 cervical epidural steroid injections without relief. Patient says that his vision is better and this is his headache. He did receive some fentanyl at the [facility] emergency department. There is no history of stroke or seizure. Past Medical History Cardiovascular: AFIB, CAD (cardiac catheter shows normal coronary arteries and left ventricular function), Other (sick sinus syndrome) Pulmonary: Bronchitis CENTRAL NERVOUS SYSTEM: Other (chronic headaches) GI: Peptic Ulcer disease Hepatobiliary: Cholelithiasis Musculoskeletal: low back pain, Osteoarthritis Infectious disease: Other (cervical spine pain) ENT: Allergic Rhinitis Past Surgical History Past Surgical History: Pacemaker, Other (right elbow, right wrist) Family History Family History: Cancer Social History Social History , unemployed, occasional cigar, no alcohol Current Medications Current Medications Current Medications Aspirin (Blanca Aspirin) 325 mg DAILY PO ; Start 02/06/19 at 16:30 Flecainide Acetate (Tambocor) 50 mg BID PO ; Start 02/06/19 at 21:00 Acetaminophen/ Hydrocodone Bitart (Lortab 7.5/325) 1 tab PRN QHS PRN PO MODERATE-SEVERE PAIN; Start 02/06/19 at 15:30 Metoprolol Tartrate (Lopressor) 25 mg BID PO ; Start 02/06/19 at 21:00 Sodium Chloride 1,000 ml @ 50 mls/hr Q20H IV ; Start 02/06/19 at 16:30; Stop 02/07/19 at 12:29 Ondansetron HCl (Zofran) 4 mg PRN Q6HRS PRN IV NAUSEA/VOMITING; Start 02/06/19 at 15:30 Acetaminophen (Tylenol) 650 mg PRN Q6HRS PRN PO Headaches, Temp > 101.5F; Start 02/06/19 at 15:30 Senna/Docusate Sodium (Senna Plus) 1 tab BID PO ; Start 02/06/19 at 21:00 Lactulose (Lactulose) 20 gm PRN Q12HR PRN PO CONSTIPATION; Start 02/06/19 at 15: 30 Heparin Sodium (Porcine) (Heparin Sodium) 5,000 unit Q8HRS SQ ; Start 02/06/19 at 22:00 Prochlorperazine Edisylate (Compazine) 10 mg PRN Q6HRS PRN IV NAUSEA/VOMITING/ Headache; Start 02/06/19 at 16:00 Active Scripts Active Metoprolol Tartrate 25 Mg Tablet 1 Tab PO BID Aspirin 325 Mg Tablet 1 Tab PO DAILY Reported DURAGESIC 50mcg/hr (Fentanyl) 1 Each Patch.td72 1 Patch TD Q72H Gabapentin 600 Mg Tablet 300 Mg PO TID Hydrocodone-Apap 7.5-325 (Hydrocodone Bit/Acetaminophen) 1 Tab Tablet 1 Tab PO PRN TID PRN Benicar Hct 40-25 Mg Tablet (Olmesartan/Hydrochlorothiazide) 1 Each Tablet 1 Each PO DAILY Flecainide Acetate 100 Mg Tablet 1 Tab PO BID Allergies Allergies: Coded Allergies: amoxicillin (Verified Allergy, Intermediate, RASH / HIVES, 03/25/16) codeine (Verified Allergy, Intermediate, ITCHY, BROKE OUT WITH RASH, ) ROS Review of System Negative for fever, chills, weight loss, shortness of breath, chest pain, indigestion, hematochezia, melena, and dysuria. Full 14-point review of systems is negative. Physical Exam Physical Examination General: Well-developed, well-nourished white male in no acute distress HEENT: Normocephalic andatraumatic. Temporal arteriespulsatile and nontender. Fundoscopic exam unremarkable Neck: Supple without bruit, no meningismus Musculoskeletal: Stability:see neurologic. Gait exam:see neurologic. Tone:see neurologic. Strength:see neurologic. Neurological: Mental Status:intact, orientation, memory, attention span/concentration, language, fund of knowledge normal, although at first he was sleeping and little difficult to arouse but he awakens fully. Cranial Nerves:Pupils equal and reactive to light, extraocular movements areintact, visual miller are full to confrontation. Facial sensation is normal. There is no facial asymmetry. Vestibulo-ocular reflex is intact. Palate elevates and tongue protrudes in midline. All other cranial related problems are negative except as mentioned before.Reflexes:2+ and symmetric with flexor plantar responses. Motor:5/5 strength with normal tone and bulk. Coordination:Finger-nose finger and heel-to -mesa testing are normal. Rapid alternating movements and fine finger movements are intact. Gait:Antalgic. Sensory:Patchy loss left arm. Vitals VITALS Vital Signs Date Time Temp Pulse Resp B/P (MAP) Pulse Ox O2 Delivery O2 Flow Rate FiO2 02/06/19 15:24 97.4 69 18 123/83 (96) 97 Room Air 97.[address] head, 02/06/19: No abnormal attenuation within the brain parenchyma. No evidence of acute intracranial hemorrhage. No extra-axial fluid collections. No mass effect or midline shift. Ventricular size is appropriate. Basal cisterns are patent. No fractures identified.Coelho-white differentiation is preserved.Globes and orbits are within normal limits. Paranasal sinuses and mastoid air cells are clear. IMPRESSION: No acute intracranial findings. CT of the head without contrast, 02/02/2019: The ventricles are within normal limits in size. There is no shift of the midline structures. There is no evidence of acute intracranial hemorrhage or mass effect. IMPRESSION: No acute intracranial abnormality is detected. CT of the cervical spine without contrast, 02/02/2019: No fracture or dislocation is identified. There is moderate disc space narrowing and marginal spurring, most severe at C4-5, C5-6 and C6-7. There are moderate hypertrophic degenerative changes involving multiple facet joints bilaterally. The posterior disc margins are not clearly visible. The combination of findings is causing moderate central spinal stenosis at C4-5, C5-6 and C6-7 as well as moderate foraminal stenosis bilaterally at these levels. The paraspinous soft tissues are unremarkable. IMPRESSION: 1. Moderate multilevel degenerative change in the cervical spine with associated central spinal and bilateral foraminal stenosis at C4-5, C5-6 and C6-7. 2. No acute bony abnormality is detected. MRI of the lumbar spine without contrast 07/15/2018 Clinical history: Chronic low back pain which radiates down the left leg. TECHNIQUE: Unenhanced T1-weighted and T2-weighted sagittal and axial and inversion recovery sagittal images of the lumbar spine were obtained. FINDINGS: Minimal S-shaped curvature of the thoracolumbar spine is seen. Degenerative signal changes are seen involving the L3-4, L4-5 and L5-S1 discs. Degenerative signal changes are seen within the marrow surrounding these discs. Loss of height of the L5-S1 disc is noted. The conus medullaris is within normal limits in morphology, position, and signal characteristics. The L1-2 disc space is within normal limits. At the L2-3 disc space there is a mild generalized disc bulge. Superimposed on this disc bulge is a right lateral focal disc protrusion. This measures 3 mm in AP diameter. Degenerative changes are seen involving the facet joints bilaterally. There is mild ligamentum flavum hypertrophy bilaterally. These findings when combined do not result in significant central spinal canal or neural foraminal stenosis. At the L3-4 disc space there is a mild generalized disc bulge. Degenerative changes are seen involving the facet joints bilaterally. There is mild ligamentum flavum hypertrophy bilaterally. Small facet joint effusions are seen. There is prominence of the posterior epidural fat. These findings when combined do not result in significant central spinal canal or neural foraminal stenosis. At the L4-5 disc space there is a mild generalized disc bulge which is eccentric to the right. Degenerative changes are seen involving the facet joints bilaterally. There is mild ligamentum flavum hypertrophy bilaterally. There is prominence of the posterior epidural fat. These findings when combined do not result in significant central spinal canal or neural foraminal stenosis. At the L5-S1 disc space there is a mild to moderate generalized disc bulge. This is eccentric to the left. Degenerative changes are seen involving the facet joints bilaterally. There is moderate ligamentum flavum hypertrophy bilaterally. There is prominence of the posterior epidural fat. These findings when combined do not result in significant central spinal canal stenosis. Mild to moderate left greater than right neural foraminal stenosis is seen. IMPRESSION: The changes of degenerative disc disease are seen involving the lumbar spine. These findings do not result in significant central spinal canal stenosis at any level. Mild to moderate left greater than right neural foraminal stenosis is seen. Cervical myelogram, 06/27/2018: History: Radiculopathy, left arm and leg pain, headache Under local anesthesia, aseptic conditions and fluoroscopic guidance a lumbar puncture was performed at the L2-3 level utilizing a 25-gauge Leobardo spinal needle. Good clear CSF flow was obtained following which 11 cc of Omnipaque 300 was injected into the thecal sac. The spinal needle was then removed and appropriate cervical imaging performed. 2.3 minutes of fluoroscopy time was utilized. 14 fluoroscopic spot images were recorded. The patient tolerated the procedure well and was sent to CT in good condition. The following findings are delineated on the myelogram: 1. Preliminary AP and lateral views of the lumbar spine demonstrate mild grade 1 spondylolisthesis at L5-S1 with probable underlying spondylolysis at L5. There are moderate scattered spurs throughout the lumbar spine. 2. There are moderate anterior extradural defects the disc levels from C3-4 through C6-7. There is a mild broad-based posterior extradural defect from the mid C4 level down to the C5-6 level. The combination of findings is causing mild to moderate central spinal stenosis at C4-5, C5-6 and C6-7. 3. There is poor opacification of the nerve root sleeves at multiple levels in the lower cervical spine including C4-5 and C5-6 on the right and C5-6 and C6-[address] of the cervical spine-post myelogram, 06/27/2018: Multidetector CT imaging was performed with multiplanar reconstructions produced. The following findings are delineated: 1. No fracture or subluxation is evident. No destructive bony lesion is seen. There are moderate degenerative changes involving multiple facet joints bilaterally, most severe on the left at C3-4. 2. No significant abnormality is identified at the C2-3 disc level. 3. At C3-4 there is mild posterior marginal spurring which results in mild foraminal narrowing on the left. The thecal sac measures 11 mm in AP diameter at the midline. 4. At C4-5 there is moderate disc space narrowing with moderate marginal spurring, most prominent laterally on the right. There is severe associated right foraminal narrowing and moderate left foraminal narrowing due to the spurring. The thecal sac narrows down to an AP diameter of 8 mm at the midline with mild flattening of the cervical cord. 5. There is similar disc space narrowing and prominent spurring at C5-6 the thecal sac measures 8-9 mm in AP diameter at the midline. The spurring is producing severe foraminal encroachment bilaterally. 6. At C6-7 there is also disc space narrowing with considerable posterior marginal spurring. The thecal sac measures approximately 9 mm in AP diameter at the midline. There is moderate to severe bilateral foraminal encroachment. 7. At C7-T1 the central spinal canal and neural foramina are well maintained. IMPRESSION: 1. Moderate multilevel degenerative change with moderate central spinal stenosis at C4-5 and mild central spinal stenosis at C5-6 and C6-7, as well as severe foraminal narrowing bilaterally at multiple levels as described above. 2. Incidental note is made of mild anterolisthesis at L5-S1. MRI of the cervical spine without contrast 05/23/2018 CLINICAL HISTORY: Neck pain which radiates down the left arm and hand. Comparison is made to a CT scan of the cervical spine dated 02/14/2018. Mild lateral curvature of the cervical spine is seen convex to the right. There is straightening of the normal cervical lordosis. Degenerative signal changes are seen involving all of the disks of the cervical spine. Degenerative signal changes are seen within the marrow surrounding these discs. Loss of height of the C4-5, C5-6 and C6-7 discs is noted. The cervical spinal cord is normal in position and signal characteristics. At the C2-3 disc space there is a minimal generalized disc bulge. Degenerative changes are seen involving the uncovertebral and facet joints bilaterally. These findings do not result in significant central spinal canal or neural foraminal stenosis. At the C3-4 disc space there is a mild generalized disc bulge. Degenerative changes are seen involving the uncovertebral and facet joints, left greater than right. These findings when combined do not result in significant central spinal canal stenosis mild left neural foraminal stenosis is seen. The right neural foramen is patent. At the C4-5 disc space there is a mild to moderate generalized disc bulge. Superimposed on this disc bulge is a focal central disc osteophyte complex. This measures 3 mm in AP diameter. Degenerative changes are seen involving the uncovertebral and facet joints, right greater than left. These findings when combined result in mild to moderate central spinal canal stenosis with mild cord impingement. Mild to moderate right greater than left neural foraminal stenosis is seen. At the C5-6 disc space there is a mild generalized disc bulge. Degenerative changes are seen involving the uncovertebral and facet joints, right greater than left. These findings efface the anterior and posterior CSF resulting in mild central spinal canal stenosis without evidence of cord impingement. Mild right greater than left neural foraminal stenosis is seen. At the C6-7 disc space there is a mild to moderate generalized disc bulge. Degenerative changes are seen involving the uncovertebral and facet joints, right greater than left. These findings when combined efface the anterior CSF resulting in mild central spinal canal stenosis without evidence of cord impingement. Mild right greater than left neural foraminal stenosis is seen. At the C7-T1 disc space there is a mild generalized disc bulge. Degenerative changes are seen involving the facet joints bilaterally. These findings when combined do not result in significant central spinal canal or neural foraminal stenosis. IMPRESSION: Degenerative changes are seen throughout the cervical spine. These findings result in mild central spinal canal stenosis at C5-6 and C6-7 without evidence of cord impingement and mild to moderate central spinal canal stenosis with mild cord impingement at C4-5. Multilevel neural foraminal stenosis is seen as outlined above. Assessment/Plan Assessment/Plan Impression: Visual changes related to hypotension, I doubt that he had a transient ischemic attack or intraocular problem. Cervical spondylosis, multiple radiographs reviewed as above, there is mild C3- 4 foraminal narrowing on the left, C4-5 right foraminal narrowing and moderate left foraminal narrowing with flattening of the cervical cord at this level, C5- 6 foraminal encroachment bilaterally with 8-9 mm canal, C6-7 9 mm thecal sac with moderate-severe bilateral foraminal encroachment, C7-T1 normal Lumbar spondylosis, MRI of the lumbar spine, 07/15/18, shows degenerative disc disease without significant central canal stenosis, mild-moderate left-greater- than-right neural foraminal stenosis Encephalopathy related to narcotic, he easily awakens. Recommendations: I did consider CT angiogram but his creatinine is 1.9 so risks outweigh benefits. Cardiac workup I do not believe that he needs an MRI of the brain but I fully understand we can get one as long as we turn off the pacemaker. Follow-up with me as scheduled on 02/14 for EMG of the left upper extremity. Thank you for letting me help with the patient's care. MAIDA RIVERA MD Feb 06, 2019 16:48
[2019-02-06 19:15] VITALS: BP 119/81
[2019-02-06] MEDS: METOPROLOL TART IMMED RELEASE 25 MG TABLET. PO SCH (20:43)
[2019-02-06] MEDS: FLECAINIDE ACETATE 50 MG TABLET. PO SCH (20:44)
[2019-02-06] MEDS: SENNOSIDES/DOCUSATE 8.6/50MG TABLET. PO SCH (20:45)
[2019-02-06] MEDS: HEPARIN for SUB-Q USE 5,000 UNIT/ML VIAL. SQ SCH (20:52)
[2019-02-06 23:15] VITALS: BP 93/71
--- NOTE | 2019-02-06 23:59 | NUR ---
At 1900, pt states he has severe, 7/10 headache. Tylenol and headache discussed. Pt states that "Tylenol does nothing for my headaches." Rowdiness of child visitors, number of visitors, bright overhead lights, and noise level discussed and visitors except spouse left the patient's room by 2029 and lights dimmed. Hydrocodone given for pain at 2044 after discussion.
[2019-02-07] MEDS: ACETAMINOPHEN 325 MG TABLET. PO PRN ×2 (01:50→09:10)
[2019-02-07 03:35] VITALS: BP 110/74
[2019-02-07 04:06] LABS: BASO # 0.1 x10^3/uL (0.0-0.2); BASO % 1 % (0-3); EOS # 0.2 x10^3/uL (0.0-0.7); EOS % 3 % (0-3); HEMATOCRIT 45.5 % (39.0-53.0); HEMOGLOBIN 15.8 g/dL (13.0-17.5); LYMPH # 2.7 x10^3/uL (1.0-4.8); LYMPH % 41 % (24-48); MEAN CORPUSCULAR HEMOGLOBIN 32 pg (25-35); MEAN CORPUSCULAR HGB CONC 35 g/dL (31-37); MEAN CORPUSCULAR VOLUME 93 fL (79-100); MONO # 0.6 x10^3/uL (0.0-1.1); MONO % 9 % (0-9); NEUT % 46 % (31-73); PLATELET COUNT 206 x10^3/uL (140-400); RED BLOOD COUNT 4.92 x10^6/uL (4.30-5.70); RED CELL DISTRIBUTION WIDTH 13.1 % (11.5-14.5); WHITE BLOOD COUNT 6.6 x10^3/uL (4.0-11.0)
[2019-02-07 04:26] LABS: ALBUMIN 3.1 g/dL (3.4-5.0); ALBUMIN/GLOBULIN RATIO 0.9 (1.0-1.7); CALCIUM 8.5 mg/dL (8.5-10.1); CREATININE 1.3 mg/dL (0.7-1.3); GFR 57.7; POTASSIUM 4.1 mmol/L (3.5-5.1); TOTAL BILIRUBIN 0.4 mg/dL (0.2-1.0); TOTAL PROTEIN 6.6 g/dL (6.4-8.2)
[2019-02-07] MEDS: HEPARIN for SUB-Q USE 5,000 UNIT/ML VIAL. SQ SCH ×2 (06:03→14:00)
--- NOTE | 2019-02-07 06:05 | NUR ---
Pt states his Flecanide dose is 100 mg BID and was recently adjusted at [facility].
[2019-02-07 07:00] VITALS: BP 120/86
[2019-02-07] MEDS: FLECAINIDE ACETATE 50 MG TABLET. PO SCH (08:31)
[2019-02-07] MEDS: ASPIRIN 325 MG TABLET PO SCH (08:31)
[2019-02-07] MEDS: METOPROLOL TART IMMED RELEASE 25 MG TABLET. PO SCH (08:32)
[2019-02-07] MEDS: SENNOSIDES/DOCUSATE 8.6/50MG TABLET. PO SCH (08:32)
--- NOTE | 2019-02-07 10:22 | PDOC2 ---
CARDIAC CONSULT DATE OF CONSULT Date of Consult DATE: 02/07/19 TIME: 10:06 REASON FOR CONSULT Reason for Consult: Bradycardia, AFIB REFERRING PHYSICIAN Referring Physician: Elbert SOURCE Source: Chart review, Patient HISTORY OF PRESENT ILLNESS HISTORY OF PRESENT ILLNESS This is a pleasant 53 yo male admitted for complains left facial numbness, neck pain, MCCRAY and visual changes and almost passing out. He was at [facility] and transferred to [facility] for further evaluation. He has had multiple cardiac workup recently in the last 1-2 yrs. He is significant for PAFIB, moderate cervical stenosis. No recent falls or any injury. 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 also with intermittent bilateral UE tingling and numbness. No facial droop, dysarthria. also with MCCRAY at that time. His BP was then noted to be low with SBP at 62 and this was around 1130 morning. He denies taking extra pain pill that time but took his gabapentin, benicar and metoprolol rpior to that event. No palpitations. For me he denies having any CP. No nausea, vomiting, SOA or diarrhea. He may have skip breakfast at that time. PAST MEDICAL HISTORY Past Medical History Cardiovascular: AFIB, HTN, Other (SSS) Pulmonary: No pertinent hx GI: No pertinent hx Heme/Onc: No pertinent hx Hepatobiliary: No pertinent hx Psych: No pertinent hx Musculoskeletal: Osteoarthritis Infectious disease: No pertinent hx ENT: No pertinent hx Renal/: Other (kidney stones ) Endocrine: No pertinent hx Dermatology: No pertinent hx PAST SURGICAL HISTORY Past Surgical History Pacemaker, Cholecystectomy FAMILY HISTORY Family History Cancer (lung- mother ), Coronary Artery Disease SOCIAL HISTORY Social History Smoke: Quit (20 years ago) ALCOHOL: occasional Drugs: None CURRENT MEDICATIONS CURRENT MEDICATIONS Current Medications Medications (Trade) Dose Ordered Sig/Hayder Route PRN Reason Start Time Stop Time Status Last Admin Dose Admin Aspirin (Blanca Aspirin) 325 mg DAILY PO 02/06/19 16:30 02/07/19 08:31 Flecainide Acetate (Tambocor) 50 mg BID PO 02/06/19 21:00 02/07/19 08:31 Acetaminophen/ Hydrocodone Bitart (Lortab 7.5/325) 1 tab PRN QHS PRN PO MODERATE-SEVERE PAIN 02/06/19 15:30 02/06/19 20:45 Metoprolol Tartrate (Lopressor) 25 mg BID PO 02/06/19 21:00 02/07/19 08:32 Sodium Chloride 1,000 ml @ 50 mls/hr Q20H IV 02/06/19 16:30 02/07/19 12:29 02/06/19 17:17 Acetaminophen (Tylenol) 650 mg PRN Q6HRS PRN PO Headaches, Temp > 101.5F 02/06/19 15:30 02/07/19 09:10 Heparin Sodium (Porcine) (Heparin Sodium) 5,000 unit Q8HRS SQ 02/06/19 22:00 02/07/19 06:03 Prochlorperazine Edisylate (Compazine) 10 mg PRN Q6HRS PRN IV NAUSEA/VOMITING/Headache 02/06/19 16:00 02/07/19 08:32 ALLERGIES ALLERGIES: Coded Allergies: amoxicillin (Verified Allergy, Intermediate, RASH / HIVES, 03/25/16) codeine (Verified Allergy, Intermediate, ITCHY, BROKE OUT WITH RASH, ) ROS Review of System 14 point ROS evaluated with pertinent positives noted per HPI PHYSICAL EXAM General: Alert, Oriented X3, Cooperative, No acute distress HEENT: Atraumatic, Mucous membr. moist/pink Lungs: Clear to auscultation, Normal air movement Heart: Regular rate (SR), Normal S1, Normal S2, No murmurs Abdomen: Soft, No tenderness Extremities: No cyanosis, No edema Skin: No breakdown, No significant lesion Neuro: Normal speech, Sensation intact Psych/Mental Status: Mental status NL, Mood NL MUSCULOSKELETAL: Osteoarthritic changes both hands VITALS VITALS Vital Signs Date Time Temp Pulse Resp B/P (MAP) Pulse Ox O2 Delivery O2 Flow Rate FiO2 02/07/19 08:32 73 120/86 02/07/19 07:33 Room Air 02/07/19 07:00 98.0 18 95 98.0 LABS Lab: Laboratory Tests Test 02/07/19 03:40 White Blood Count 6.6 x10^3/uL (4.0-11.0) Red Blood Count 4.92 x10^6/uL (4.30-5.70) Hemoglobin 15.8 g/dL (13.0-17.5) Hematocrit 45.5 % (39.0-53.0) Mean Corpuscular Volume 93 fL (79-100) Mean Corpuscular Hemoglobin 32 pg (25-35) Mean Corpuscular Hemoglobin Concent 35 g/dL (31-37) Red Cell Distribution Width 13.1 % (11.5-14.5) Platelet Count 206 x10^3/uL (140-400) Neutrophils (%) (Auto) 46 % (31-73) Lymphocytes (%) (Auto) 41 % (24-48) Monocytes (%) (Auto) 9 % (0-9) Eosinophils (%) (Auto) 3 % (0-3) Basophils (%) (Auto) 1 % (0-3) Neutrophils # (Auto) 3.0 x10^3uL (1.8-7.7) Lymphocytes # (Auto) 2.7 x10^3/uL (1.0-4.8) Monocytes # (Auto) 0.6 x10^3/uL (0.0-1.1) Eosinophils # (Auto) 0.2 x10^3/uL (0.0-0.7) Basophils # (Auto) 0.1 x10^3/uL (0.0-0.2) Sodium Level 141 mmol/L (136-145) Potassium Level 4.1 mmol/L (3.5-5.1) Chloride Level 107 mmol/L (98-107) Carbon Dioxide Level 23 mmol/L (21-32) Anion Gap 11 (6-14) Blood Urea Nitrogen 29 mg/dL (8-26) Creatinine 1.3 mg/dL (0.7-1.3) Estimated GFR (Cockcroft-Gault) 57.7 BUN/Creatinine Ratio 22 (6-20) Glucose Level 105 mg/dL (70-99) Calcium Level 8.5 mg/dL (8.5-10.1) Total Bilirubin 0.4 mg/dL (0.2-1.0) Aspartate Amino Transf (AST/SGOT) 34 U/L (15-37) Alanine Aminotransferase (ALT/SGPT) 77 U/L (16-63) Alkaline Phosphatase 101 U/L (46-116) Total Protein 6.6 g/dL (6.4-8.2) Albumin 3.1 g/dL (3.4-5.0) Albumin/Globulin Ratio 0.9 (1.0-1.7) Thyroid Stimulating Hormone (TSH) 0.935 uIU/mL (0.358-3.74) ECHOCARDIOGRAM ECHOCARDIOGRAM <Conclusion> The left ventricle is normal size. The left ventricular systolic function is normal and the ejection fraction is within normal range. The Ejection Fraction is 55-60%. There is no significant aortic valvular stenosis. Doppler and Color Flow revealed trace aortic regurgitation. Doppler and Color-flow revealed trace mitral regurgitation. Doppler and Color Flow revealed trace tricuspid regurgitation. The PA pressure was estimated at 25 mmHg. There is no evidence of significant pericardial effusion. DATE: 12/13/17 1718 STRESS TEST STRESS TEST Conclusion 1. No evidence of stress induced EKG changes 2. Normal myocardial perfusion at stress. 3. Normal EF at > 70% 4. Low risk study DATE: 02/18/17 1507 HEART CATH HEART CATH HEMODYNAMICS: LVEDP 15 mm Hg No gradient on LV to aortic pullback. LEFT VENTRICULOGRAM: EF 55% Anterobasal: Normal. Anterolateral: Normal Apical: Normal Diaphragmatic: Normal Posterobasal: Normal CORONARY ANGIOGRAPHY: LM is a large caliber vessel with normal angiographic appearance. LAD is a large caliber vessel with normal angiographic appearance. Ramus is a small caliber vessel with normal angiographic apeparance. LCx is a moderate caliber non-dominant vessel with normal angiographic appearance. OM1 is a moderate caliber vessel with normal angiographic appearance. RCA is a large caliber dominant vessel with normal angiographic appearance. RPDA and RPL are moderate caliber vessels with normal angiographic appearance. Conclusion 1. Normal LV systolic function. EF 55% 2. No significant coronary artery disease. Recommendations Aggressive Medical Therapy DATE: 12/14/17 1629 ASSESSMENT/PLAN ASSESSMENT/PLAN 1. Presyncope: suspect vasovagal accentuated by hypotension with poor hydration and use of BP meds. 2. SSS: biotronik for SSS. Maintaining SR with occasional pacing. 3. PAFIB: remote interrogation 02/04 showed normal device with 0 AFIB burden. Flecainide recently increased. 4. HTN: better and controlled 5. Cervical stenosis with opioid dependency: recent epidural inj without significant relief. 6. Left Facial numbness: remains, neurology following 7. Anxiety Recommendations 1. TTE with bubble study 2. Follow neurology recommendations 3. Doubt any arrhythmias but will interrogate device for any associated arrhythmias. 4. IVF ongoing. Continue with BB and flecainide. Agree on holding viki. MO BRICE [employer] Feb 07, 2019 10:22
--- NOTE | 2019-02-07 10:54 | PDOC ---
PROGRESS NOTES Assessment Migraine headaches Visual changes related to hypotension, I doubt that he had a transient ischemic attack or intraocular problem.He says that he has intermittent atrial fibrillation, perhaps he had an episode yesterday morning, defer to cardiology of course. Cervical spondylosis Lumbar spondylosis Encephalopathy related to narcotic, resolved. Plan Trial of citalopram, discussed side effects No need for CT angiogram Cardiac workup Follow-up with me as scheduled on 02/14 for EMG of the left upper extremity. Subjective He describes headaches originating in the neck radiating frontally and associated with nausea and photophonophobia. Objective Vital Signs Date Time Temp Pulse Resp B/P (MAP) Pulse Ox O2 Delivery O2 Flow Rate FiO2 02/07/19 08:32 73 120/86 02/07/19 07:33 Room Air 02/07/19 07:00 98.0 18 95 98.0 Intake and Output 02/07/19 07:00 Intake Total 560 ml Balance 560 ml Intake Oral 560 ml # Voids 5 PHYSICAL EXAM Alert. Oriented to time, place and person. PERRL. EOMI. CN: no focal findings. Muscle tone: normal. Muscle strength: 5/5 DTR: 2+ Plantar reflex: flexor Gait: not examined in bed. Sensory exam: patchy loss in left arm. No cerebellar signs elicited. Review of Relevant I have reviewed the following items gli (where applicable) has been applied. Labs Laboratory Tests Test 02/07/19 03:40 White Blood Count 6.6 x10^3/uL (4.0-11.0) Red Blood Count 4.92 x10^6/uL (4.30-5.70) Hemoglobin 15.8 g/dL (13.0-17.5) Hematocrit 45.5 % (39.0-53.0) Mean Corpuscular Volume 93 fL (79-100) Mean Corpuscular Hemoglobin 32 pg (25-35) Mean Corpuscular Hemoglobin Concent 35 g/dL (31-37) Red Cell Distribution Width 13.1 % (11.5-14.5) Platelet Count 206 x10^3/uL (140-400) Neutrophils (%) (Auto) 46 % (31-73) Lymphocytes (%) (Auto) 41 % (24-48) Monocytes (%) (Auto) 9 % (0-9) Eosinophils (%) (Auto) 3 % (0-3) Basophils (%) (Auto) 1 % (0-3) Neutrophils # (Auto) 3.0 x10^3uL (1.8-7.7) Lymphocytes # (Auto) 2.7 x10^3/uL (1.0-4.8) Monocytes # (Auto) 0.6 x10^3/uL (0.0-1.1) Eosinophils # (Auto) 0.2 x10^3/uL (0.0-0.7) Basophils # (Auto) 0.1 x10^3/uL (0.0-0.2) Sodium Level 141 mmol/L (136-145) Potassium Level 4.1 mmol/L (3.5-5.1) Chloride Level 107 mmol/L (98-107) Carbon Dioxide Level 23 mmol/L (21-32) Anion Gap 11 (6-14) Blood Urea Nitrogen 29 mg/dL (8-26) Creatinine 1.3 mg/dL (0.7-1.3) Estimated GFR (Cockcroft-Gault) 57.7 BUN/Creatinine Ratio 22 (6-20) Glucose Level 105 mg/dL (70-99) Calcium Level 8.5 mg/dL (8.5-10.1) Total Bilirubin 0.4 mg/dL (0.2-1.0) Aspartate Amino Transf (AST/SGOT) 34 U/L (15-37) Alanine Aminotransferase (ALT/SGPT) 77 U/L (16-63) Alkaline Phosphatase 101 U/L (46-116) Total Protein 6.6 g/dL (6.4-8.2) Albumin 3.1 g/dL (3.4-5.0) Albumin/Globulin Ratio 0.9 (1.0-1.7) Thyroid Stimulating Hormone (TSH) 0.935 uIU/mL (0.358-3.74) Laboratory Tests Test 02/07/19 03:40 White Blood Count 6.6 x10^3/uL (4.0-11.0) Red Blood Count 4.92 x10^6/uL (4.30-5.70) Hemoglobin 15.8 g/dL (13.0-17.5) Hematocrit 45.5 % (39.0-53.0) Mean Corpuscular Volume 93 fL (79-100) Mean Corpuscular Hemoglobin 32 pg (25-35) Mean Corpuscular Hemoglobin Concent 35 g/dL (31-37) Red Cell Distribution Width 13.1 % (11.5-14.5) Platelet Count 206 x10^3/uL (140-400) Neutrophils (%) (Auto) 46 % (31-73) Lymphocytes (%) (Auto) 41 % (24-48) Monocytes (%) (Auto) 9 % (0-9) Eosinophils (%) (Auto) 3 % (0-3) Basophils (%) (Auto) 1 % (0-3) Neutrophils # (Auto) 3.0 x10^3uL (1.8-7.7) Lymphocytes # (Auto) 2.7 x10^3/uL (1.0-4.8) Monocytes # (Auto) 0.6 x10^3/uL (0.0-1.1) Eosinophils # (Auto) 0.2 x10^3/uL (0.0-0.7) Basophils # (Auto) 0.1 x10^3/uL (0.0-0.2) Sodium Level 141 mmol/L (136-145) Potassium Level 4.1 mmol/L (3.5-5.1) Chloride Level 107 mmol/L (98-107) Carbon Dioxide Level 23 mmol/L (21-32) Anion Gap 11 (6-14) Blood Urea Nitrogen 29 mg/dL (8-26) Creatinine 1.3 mg/dL (0.7-1.3) Estimated GFR (Cockcroft-Gault) 57.7 BUN/Creatinine Ratio 22 (6-20) Glucose Level 105 mg/dL (70-99) Calcium Level 8.5 mg/dL (8.5-10.1) Total Bilirubin 0.4 mg/dL (0.2-1.0) Aspartate Amino Transf (AST/SGOT) 34 U/L (15-37) Alanine Aminotransferase (ALT/SGPT) 77 U/L (16-63) Alkaline Phosphatase 101 U/L (46-116) Total Protein 6.6 g/dL (6.4-8.2) Albumin 3.1 g/dL (3.4-5.0) Albumin/Globulin Ratio 0.9 (1.0-1.7) Thyroid Stimulating Hormone (TSH) 0.935 uIU/mL (0.358-3.74) Medications Current Medications Aspirin (Blanca Aspirin) 325 mg DAILY PO Last administered on 02/07/19 08:31; Start 02/06/19 at 16:30 Flecainide Acetate (Tambocor) 50 mg BID PO Last administered on 02/07/19 08:31 ; Start 02/06/19 at 21:00; Stop 02/07/19 at 10:49; Status DC Acetaminophen/ Hydrocodone Bitart (Lortab 7.5/325) 1 tab PRN QHS PRN PO MODERATE-SEVERE PAIN Last administered on 02/06/19 20:45; Start 02/06/19 at 15:30 Metoprolol Tartrate (Lopressor) 25 mg BID PO Last administered on 02/07/19 08: 32; Start 02/06/19 at 21:00 Sodium Chloride 1,000 ml @ 50 mls/hr Q20H IV Last administered on 02/06/19 17: 17; Start 02/06/19 at 16:30; Stop 02/07/19 at 12:29 Ondansetron HCl (Zofran) 4 mg PRN Q6HRS PRN IV NAUSEA/VOMITING; Start 02/06/19 at 15:30 Acetaminophen (Tylenol) 650 mg PRN Q6HRS PRN PO Headaches, Temp > 101.5F Last administered on 02/07/19 09:10; Start 02/06/19 at 15:30 Senna/Docusate Sodium (Senna Plus) 1 tab BID PO ; Start 02/06/19 at 21:00 Lactulose (Lactulose) 20 gm PRN Q12HR PRN PO CONSTIPATION; Start 02/06/19 at 15: 30 Heparin Sodium (Porcine) (Heparin Sodium) 5,000 unit Q8HRS SQ Last administered on 02/07/19 06:03; Start 02/06/19 at 22:00 Prochlorperazine Edisylate (Compazine) 10 mg PRN Q6HRS PRN IV NAUSEA/VOMITING/ Headache Last administered on 02/07/19 08:32; Start 02/06/19 at 16:00 Flecainide Acetate (Tambocor) 100 mg BID PO ; Start 02/07/19 at 21:00; Status UNV Active Scripts Active Metoprolol Tartrate 25 Mg Tablet 1 Tab PO BID Aspirin 325 Mg Tablet 1 Tab PO DAILY Reported DURAGESIC 50mcg/hr (Fentanyl) 1 Each Patch.td72 1 Patch TD Q72H Gabapentin 600 Mg Tablet 300 Mg PO TID Hydrocodone-Apap 7.5-325 (Hydrocodone Bit/Acetaminophen) 1 Tab Tablet 1 Tab PO PRN TID PRN Benicar Hct 40-25 Mg Tablet (Olmesartan/Hydrochlorothiazide) 1 Each Tablet 1 Each PO DAILY Flecainide Acetate 100 Mg Tablet 1 Tab PO BID Vitals/I & O Vital Sign - Last 24 Hours 02/06/19 02/06/19 02/06/19 02/06/19 14:30 15:24 19:15 20:00 Temp 97.4 97.7 97.4 97.7 Pulse 69 64 Resp 18 18 B/P (MAP) 123/83 (96) 119/81 (94) Pulse Ox 97 94 O2 Delivery Room Air Room Air Room Air Room Air 02/06/19 02/06/19 02/06/19 02/06/19 20:43 20:44 20:45 21:50 Pulse 64 66 Resp 20 14 B/P (MAP) 119/81 119/81 Pulse Ox 94 92 O2 Delivery Room Air Room Air 02/06/19 02/07/19 02/07/19 02/07/19 23:15 03:35 07:00 07:33 Temp 97.9 97.8 98.0 97.9 97.8 98.0 Pulse 63 71 73 Resp 18 18 18 B/P (MAP) 93/71 (78) 110/74 (86) 120/86 (97) Pulse Ox 92 95 95 O2 Delivery Room Air Room Air Room Air Room Air 02/07/19 02/07/19 08:31 08:32 Pulse 73 73 B/P (MAP) 120/86 120/86 Intake and Output 02/06/19 02/06/19 02/07/19 15:00 23:00 07:00 Intake Total 560 ml Balance 560 ml MAIDA RIVERA MD Feb 07, 2019 10:54
[2019-02-07 11:00] VITALS: BP 125/85
[2019-02-07] MEDS ORDERED: CITALOPRAM 20 MG TABLET. PO SCH (11:00)
--- NOTE | 2019-02-07 11:54 | CARD ---
MR#: [id number] Date of Study: 02/07/2019 Ordering Physician: MO BRICE, Referring Physician: MARV BAILEY, Tech: Marjorie Porras JARROD APPROVED REPORT EXAM: Two-dimensional and M-mode echocardiogram with Doppler, color Doppler with contrast. Other Information Quality : AverageHR: 73bpm Rhythm : NSRTechnically limited study due to body habitus. INDICATION Atrial Fibrillation 2D DIMENSIONS RVDd3.2 (2.9-3.5cm)Left Atrium(2D)3.9 (1.6-4.0cm) IVSd1.2 (0.7-1.1cm)Aortic Root(2D)3.4 (2.0-3.7cm) LVDd4.5 (3.9-5.9cm)LVOT Diameter2.4 (1.8-2.4cm) PWd0.9 (0.7-1.1cm)LVDs3.2 (2.5-4.0cm) FS (%) 28.8 %SV51.8 ml LVEF(%)55.5 (>50%) M-Mode DIMENSIONS Left Atrium(MM)4.13 (2.5-4.0cm)Aortic Root3.84 (2.2-3.7cm) Aortic Valve AoV Peak Jose Armando.118.0cm/sAoV VTI23.4cm AO Peak GR.5.6mmHgLVOT Peak Jose Armando.100.7cm/s AO Mean GR.3mmHgAVA (VMAX)3.97cm2 PEPE (VTI)3.90cm2 Mitral Valve MV E Nwarmykh97.0cm/sMV DECEL [id number] MV A Kdwjvejg13.5cm/sE/A Ratio0.7 MV A Qzrzljmh021ub Pulmonary Valve PV Peak Iepmzdpc579.2cm/s Tricuspid Valve TR P. Zmvkylyi838hj/sRAP UUDMETDZ4bmBs TR Peak Gr.26vrIpSNON34otFq LEFT VENTRICLE The left ventricle is normal size. Proximal septal thickening is noted. The left ventricular systolic function is normal. The Ejection Fraction is 55-60%. There is normal LV segmental wall motion. Trans mitral Doppler flow pattern is Grade I-abnormal relaxation pattern. RIGHT VENTRICLE The right ventricle is normal size. There is normal right ventricular wall thickness. The right ventr icular systolic function is normal. ATRIA The left atrium is mildly dilated. The right atrium size is normal. The interatrial septum is intact with no evidence for an atrial septal defect or patent foramen ovale as noted on 2-D or Doppler imagi ng. AORTIC VALVE The aortic valve is normal in structure and function. The aortic valve is trileaflet. Doppler and Col or Flow revealed no significant aortic regurgitation. There is no significant aortic valvular stenosi s. MITRAL VALVE The mitral valve is normal in structure and function. There is no evidence of mitral valve prolapse. There is no mitral valve stenosis. Doppler and Color Flow revealed no mitral valve regurgitation note d. TRICUSPID VALVE The tricuspid valve is normal in structure and function. Doppler and Color Flow revealed trace tricus pid regurgitation. The PA pressure was estimated at 18 mmHg. There is no tricuspid valve prolapse or vegetation. There is no tricuspid valve stenosis. PULMONIC VALVE The pulmonary valve is normal in structure and function. Doppler and Color Flow revealed no pulmonic valvular regurgitation. There is no pulmonic valvular stenosis. GREAT VESSELS The aortic root is mildly enlarged. The ascending aorta is Mildly dilated. The IVC is normal in size and collapses >50% with inspiration. PERICARDIAL EFFUSION There is no evidence of significant pericardial effusion. Critical Notification Critical Value: No <Conclusion> The left ventricular systolic function is normal. The Ejection Fraction is 55-60%. There is normal LV segmental wall motion. Transmitral Doppler flow pattern is Grade I-abnormal relaxation pattern. Doppler and Color Flow revealed trace tricuspid regurgitation. The PA pressure was estimated at 18 mmHg. There is no evidence of significant pericardial effusion. Signed by : Can Stark, Electronically Approved : 02/07/2019 11:54:25
--- NOTE | 2019-02-07 12:14 | EKG ---
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
--- NOTE | 2019-02-07 13:11 | NUR ---
SS following for discharge planning. SS reviewed pt chart. Pt is from home with spouse and is currently on room air. No discharge needs noted at this time. SS will continue to follow for pending discharge needs.
[2019-02-07 15:00] VITALS: BP 119/83
--- NOTE | 2019-02-07 16:18 | PDOC3 ---
Discharge Summary Visit Information Date of Admission: Feb 06, 2019 Date of Discharge: Feb 07, 2019 Admitting Diagnosis Comment: Visual changes - less likely CVA, negative CT head. Sx resolved. This may have been related to hypotension rather than a TIA, will ask neuro to see. Cont ASA Hypotension - symptomatic, IVF resuscitation helped Afib - chronic, s/p PPM, on flecainide. Consult cardiology. Anticoagulation should be addressed though his CHADSVASC is low. ASA is still appropriate LINDSAY - Cr up to 1.8 from 1.2 baseline - will continue hydration. HOLD INDIGO/HCTZ Transaminitis - could be 2/2 hypotension. will check thyroid function and repeat LFTs in AM Intractable headache - seen by neurology, asking to be seen by his primary neurologist. Tylenol ok, no NSAIDS for his LINDSAY, compazine for now as well Final Diagnosis 1. Presyncope: suspect vasovagal accentuated by hypotension with poor hydration and use of BP meds. 2. SSS: biotronik for SSS. Maintaining SR with occasional pacing. 3. PAFIB: remote interrogation 02/04 showed normal device with 0 AFIB burden. Flecainide recently increased. 4. HTN: better and controlled 5. Cervical stenosis with opioid dependency: recent epidural inj without significant relief. 6. Left Facial numbness: remains, neurology following 7. Anxiety Brief Hospital Course Allergies Allergies Coded Allergies Type Severity Reaction Last Updated Verified amoxicillin Allergy Intermediate RASH / HIVES 03/25/16 Yes codeine Allergy Intermediate ITCHY, BROKE OUT WITH RASH 03/25/16 Yes Vital Signs Vital Signs Date Time Temp Pulse Resp B/P (MAP) Pulse Ox O2 Delivery O2 Flow Rate FiO2 02/07/19 15:00 98.0 119/83 (95) 98.0 02/07/19 11:00 64 18 95 Room Air Lab Results Laboratory Tests Test 02/07/19 03:40 White Blood Count 6.6 x10^3/uL (4.0-11.0) Red Blood Count 4.92 x10^6/uL (4.30-5.70) Hemoglobin 15.8 g/dL (13.0-17.5) Hematocrit 45.5 % (39.0-53.0) Mean Corpuscular Volume 93 fL (79-100) Mean Corpuscular Hemoglobin 32 pg (25-35) Mean Corpuscular Hemoglobin Concent 35 g/dL (31-37) Red Cell Distribution Width 13.1 % (11.5-14.5) Platelet Count 206 x10^3/uL (140-400) Neutrophils (%) (Auto) 46 % (31-73) Lymphocytes (%) (Auto) 41 % (24-48) Monocytes (%) (Auto) 9 % (0-9) Eosinophils (%) (Auto) 3 % (0-3) Basophils (%) (Auto) 1 % (0-3) Neutrophils # (Auto) 3.0 x10^3uL (1.8-7.7) Lymphocytes # (Auto) 2.7 x10^3/uL (1.0-4.8) Monocytes # (Auto) 0.6 x10^3/uL (0.0-1.1) Eosinophils # (Auto) 0.2 x10^3/uL (0.0-0.7) Basophils # (Auto) 0.1 x10^3/uL (0.0-0.2) Sodium Level 141 mmol/L (136-145) Potassium Level 4.1 mmol/L (3.5-5.1) Chloride Level 107 mmol/L (98-107) Carbon Dioxide Level 23 mmol/L (21-32) Anion Gap 11 (6-14) Blood Urea Nitrogen 29 mg/dL (8-26) Creatinine 1.3 mg/dL (0.7-1.3) Estimated GFR (Cockcroft-Gault) 57.7 BUN/Creatinine Ratio 22 (6-20) Glucose Level 105 mg/dL (70-99) Calcium Level 8.5 mg/dL (8.5-10.1) Total Bilirubin 0.4 mg/dL (0.2-1.0) Aspartate Amino Transf (AST/SGOT) 34 U/L (15-37) Alanine Aminotransferase (ALT/SGPT) 77 U/L (16-63) Alkaline Phosphatase 101 U/L (46-116) Total Protein 6.6 g/dL (6.4-8.2) Albumin 3.1 g/dL (3.4-5.0) Albumin/Globulin Ratio 0.9 (1.0-1.7) Thyroid Stimulating Hormone (TSH) 0.935 uIU/mL (0.358-3.74) Laboratory Tests Test 02/07/19 03:40 White Blood Count 6.6 x10^3/uL (4.0-11.0) Red Blood Count 4.92 x10^6/uL (4.30-5.70) Hemoglobin 15.8 g/dL (13.0-17.5) Hematocrit 45.5 % (39.0-53.0) Mean Corpuscular Volume 93 fL (79-100) Mean Corpuscular Hemoglobin 32 pg (25-35) Mean Corpuscular Hemoglobin Concent 35 g/dL (31-37) Red Cell Distribution Width 13.1 % (11.5-14.5) Platelet Count 206 x10^3/uL (140-400) Neutrophils (%) (Auto) 46 % (31-73) Lymphocytes (%) (Auto) 41 % (24-48) Monocytes (%) (Auto) 9 % (0-9) Eosinophils (%) (Auto) 3 % (0-3) Basophils (%) (Auto) 1 % (0-3) Neutrophils # (Auto) 3.0 x10^3uL (1.8-7.7) Lymphocytes # (Auto) 2.7 x10^3/uL (1.0-4.8) Monocytes # (Auto) 0.6 x10^3/uL (0.0-1.1) Eosinophils # (Auto) 0.2 x10^3/uL (0.0-0.7) Basophils # (Auto) 0.1 x10^3/uL (0.0-0.2) Sodium Level 141 mmol/L (136-145) Potassium Level 4.1 mmol/L (3.5-5.1) Chloride Level 107 mmol/L (98-107) Carbon Dioxide Level 23 mmol/L (21-32) Anion Gap 11 (6-14) Blood Urea Nitrogen 29 mg/dL (8-26) Creatinine 1.3 mg/dL (0.7-1.3) Estimated GFR (Cockcroft-Gault) 57.7 BUN/Creatinine Ratio 22 (6-20) Glucose Level 105 mg/dL (70-99) Calcium Level 8.5 mg/dL (8.5-10.1) Total Bilirubin 0.4 mg/dL (0.2-1.0) Aspartate Amino Transf (AST/SGOT) 34 U/L (15-37) Alanine Aminotransferase (ALT/SGPT) 77 U/L (16-63) Alkaline Phosphatase 101 U/L (46-116) Total Protein 6.6 g/dL (6.4-8.2) Albumin 3.1 g/dL (3.4-5.0) Albumin/Globulin Ratio 0.9 (1.0-1.7) Thyroid Stimulating Hormone (TSH) 0.935 uIU/mL (0.358-3.74) Brief Hospital Course Patient is a 53-year-old male who presents with chest pain, neck pain, headache , and visual changes in both eyes. This started while he was driving. He returned home took his blood pressure and found that was in the 60s systolic. He was recently hospitalized and had his flecainide dosing adjusted as well as his benicar and had a fentanyl patch prescribed for chronic neck and back pain. 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 He reports that the visual changes have changed from a bright light to a slightly dimmer than usual vision. Nothing seems to make the discomfort better or worse. He was admitted to the hospital several days ago for similar symptoms and found to have negative cardiac enzymes at that time. CT scan of the head and cervical spine showed severe multilevel degenerative disease, no evidence of stroke at that time. Nothing seems to make today's symptoms better or worse Cr noted at 1.8 today. Patient was observed overnight with no new events noted. Patient was seen in consultation by Dr. Ca from neurology and cardiology as well. The patient most likely is not experiencing central etiology for his symptoms and this most likely was due to hypoperfusion due to low blood pressure after taking his antihypertensives. Discussed the importance of checking his blood pressure prior to taking her medications and holding them if his blood pressure is low. He will be following up in the outpatient setting with his physicians as scheduled. Signs and symptoms of alarm discussed prior to discharge all of his concerns were addressed to the best of my abilities Physical exam: General: Alert, Oriented X3, Cooperative, No acute distress HEENT: Atraumatic, Mucous membr. moist/pink Lungs: Clear to auscultation, Normal air movement Heart: Regular rate (SR), Normal S1, Normal S2, No murmurs Abdomen: Soft, No tenderness Extremities: No cyanosis, No edema Skin: No breakdown, No significant lesion Neuro: Normal speech, Sensation intact Psych/Mental Status: Mental status NL, Mood NL MUSCULOSKELETAL: Osteoarthritic changes both hands Discharge Information Condition at Discharge: Improved Follow Up: Weeks (1 week with primary care, cardiology as scheduled) Disposition/Orders: D/C to Home Scheduled Aspirin (Aspirin) 325 Mg Tablet, 1 TAB PO DAILY, #30 Ref 5 Prescribed by: WHIT DE LEON on 08/10/17929 Last Action: Reviewed on 02/06/191535 by ESTHER CANCHOLA Fentanyl (DURAGESIC 50mcg/hr) 1 Each Patch.td72, 1 PATCH TD Q72H for Chronic Pain, (Reported) Entered as Reported by: ESTHER CANCHOLA on 02/06/191535 Last Action: New Order on 02/06/191535 by ESTHER CANCHOLA Flecainide Acetate (Flecainide Acetate) 100 Mg Tablet, 1 TAB PO BID for Afib, # 180 Ref 3 (Reported) Entered as Reported by: ESTHER CANCHOLA on 02/06/191535 Last Action: New Order on 02/06/191535 by ESTHER CANCHOLA Gabapentin (Gabapentin) 600 Mg Tablet, 300 MG PO TID for NEUROGENIC PAIN, ( Reported) Entered as Reported by: ESTHER CANCHOLA on 02/06/191535 Last Action: New Order on 02/06/191535 by ESTHRE CANCHOLA Metoprolol Tartrate (Metoprolol Tartrate) 25 Mg Tablet, 1 TAB PO BID, #180 Ref 1 Prescribed by: WHIT DE LEON on 08/10/17929 Last Action: Reviewed on 02/06/191535 by ESTHER CANCHOLA Olmesartan/Hydrochlorothiazide (Benicar Hct 40-25 Mg Tablet) 1 Each Tablet, 1 EACH PO DAILY for HTN, (Reported) Entered as Reported by: ESTHER CANCHOLA on 02/06/191535 Last Action: New Order on 02/06/191535 by ESTHER CANCHOLA Scheduled PRN Hydrocodone Bit/Acetaminophen (Hydrocodone-Apap 7.5-325 ) 1 Tab Tablet, 1 TAB PO PRN TID PRN for PAIN, Ref 0 (Reported) Entered as Reported by: ESTHER CANCHOLA on 02/06/191535 Last Action: New Order on 02/06/191535 by MARLYN SOTO MD Feb 07, 2019 16:18
--- NOTE | 2019-02-07 18:52 | NUR ---
Discharge Note: DUANE HALL Discharge instructions and discharge home medications reviewed with Patient and a copy given. All questions have been answered and understanding verbalized.
[2019-02-07] MEDS ORDERED: FLECAINIDE ACETATE 50 MG TABLET. PO SCH (21:00)
== END 2019-02-07 18:00 | disposition home or self-care (01) | DRG 314 ==
LOC: 2 NORTH 14:51
PROVIDERS: ADMIT Internal Medicine; ATTEND Internal Medicine
DX: I95.9 Hypotension, unspecified (principal); G92 Toxic encephalopathy; N17.9 Acute kidney failure, unspecified; F11.20 Opioid dependence, uncomplicated; F41.9 Anxiety disorder, unspecified; G43.909 Migraine, unspecified, not intractable, without status migrainosus; G89.29 Other chronic pain; I10 Essential (primary) hypertension; I25.10 Atherosclerotic heart disease of native coronary artery without angina pectoris; I48.2 Chronic atrial fibrillation; R74.0 Nonspecific elevation of levels of transaminase and lactic acid dehydrogenase [LDH]; I48.0 Paroxysmal atrial fibrillation; M19.90 Unspecified osteoarthritis, unspecified site; M43.16 Spondylolisthesis, lumbar region; M43.17 Spondylolisthesis, lumbosacral region; M46.09 Spinal enthesopathy, multiple sites in spine; M47.26 Other spondylosis with radiculopathy, lumbar region; M47.812 Spondylosis without myelopathy or radiculopathy, cervical region; M51.16 Intervertebral disc disorders with radiculopathy, lumbar region; M48.02 Spinal stenosis, cervical region; R29.810 Facial weakness; T40.605A Adverse effect of unspecified narcotics, initial encounter; F17.290 Nicotine dependence, other tobacco product, uncomplicated; Z88.8 Allergy status to other drugs, medicaments and biological substances; Z87.442 Personal history of urinary calculi; Z87.11 Personal history of peptic ulcer disease; Z80.1 Family history of malignant neoplasm of trachea, bronchus and lung; Z82.49 Family history of ischemic heart disease and other diseases of the circulatory system; Y92.89 Other specified places as the place of occurrence of the external cause
CPT/HCPCS: 36415; 80053; 84443; 85025; 93005; 93306; J0780; J1644; J7030

== ENCOUNTER → 2019-05-26 | Outpatient (CLI) | payer BC ==
[~2019-05-26] MED LIST changes: +FENT1PAT91 TD; +GABA600T7 PO
--- NOTE | 2019-05-26 12:03 | RAD ---
BRAIN W/O CONTRAST History: Weakness. Worsening migraines. Technique: Multiplanar, multi sequential MR imaging was performed of the brain without contrast. Comparison: January 25, [address] Findings: No acute infarct. No intracranial hemorrhage. No mass effect. No hydrocephalus. Extra-axial spaces are unremarkable. Mild foci of T2/FLAIR hyperintensities within the hemispheric white matter. Imaged orbits are unremarkable. Imaged paranasal sinuses and mastoid air cells are clear. Impression: 1. No acute intracranial abnormality. 2. Mild nonspecific white matter changes, most often due to chronic microvascular ischemia. Electronically signed by: Junior Barraza DO (05/26/2019 12:01 PM) [email or web address]
== END | disposition home or self-care (01) ==
LOC: MRI 11:08
PROVIDERS: ATTEND Psychiatry & Neurology Neurology with Special Qualifications in Child Neurology
DX: R90.82 White matter disease, unspecified (principal); G43.019 Migraine without aura, intractable, without status migrainosus
CPT/HCPCS: 70551